=== PATIENT | female | born 1930 | race Caucasian/White ===

== ENCOUNTER 2017-08-05 20:48 | Inpatient (IN) | payer MEDICARE, BC ==
[~2017-08-05] VITALS: Ht 154.9 cm; Wt 73.1 kg
[~2017-08-05 20:48] MED LIST: /AMLO25TA PO; ACET500C PO; ALLO100T PO; ALLO10TA PO; ALLO50TA PO; AMOX250C3 PO; ARTH1TAB PO; ASPI81CH PO; ASPI81CH3 PO; BENA5TAB PO; BISO10TA PO; BISO10TA6 PO; CALTRATE 600+D PO; CALTTAB10 PO; CALTTAB2 PO; CAPS25CR EXT; CENTTAB PO; CLAR10CA3 PO; DETR4CAP PO; DOCU10ELUD PO; ELIQ2.5T PO; ELIQ5TAB PO; HYDR-3910 PO; HYDR12.55 PO; HYDR50TA2 PO; JANU25TA PO; LASI20TA PO; LEVO750T PO; LIDO1DIS2 TD; LOPR50TA PO; METO50TA2 PO; METO5TAB PO; METO5TAB2 PO; ONDA4TAB5 PO; PANT40TA2 PO; PERC5TAB PO; PRAV40TA2 PO; REGL5TAB2 PO; TOLT2TAB PO; TOPR50TA PO; TYLE325T5 PO; TYLE650T30 PO; ULTR50TA PO; VITA-112 PO; VITA-121 PO; VITA100037 PO; VITA200016 PO; ZOST0.25 TOP; ZOSTCRE TOP; ZYLO100T PO
[2017-08-05] MEDS ORDERED: TRAD5TAB PO (21:30)
[2017-08-05] MEDS: ONDANSETRON 4MG/2ML VIAL (J2405) IV ONE ×2 (21:45→21:59)
[2017-08-05] MEDS: PERCOCET 5MG/325MG TAB PO ONE ×2 (21:45→21:58)
[2017-08-05 21:51] LABS: BASO % 0.2 % (0.0-1.0); EOS # 0.1 10^3/uL (0.0-0.50); EOS % 0.4 % (0.0-3.0); IMMATURE GRANULOCYTE % 0.7 % (0-0); LYMPH # 1.4 10^3/uL (1.5-4.5); LYMPH % 7.9 % (24.0-44.0); MEAN CORPUSCULAR HEMOGLOBIN 28.3 pg (27.0-33.0); MEAN CORPUSCULAR HGB CONC 32.9 g/dl (32.0-36.5); MEAN CORPUSCULAR VOLUME 86.2 fl (80.0-96.0); MONO # 1.1 10^3/uL (0.0-0.8); MONO % 6.1 % (0.0-5.0); NEUTROPHILS # 15.4 10^3/uL (1.8-7.7); NEUTROPHILS % 84.7 % (36.0-66.0); PLATELET COUNT, AUTOMATED 507 10^3/uL (150-450); WHITE BLOOD COUNT 18.2 10^3/uL (4.0-10.0)
[2017-08-05] MEDS: NS 1,000 ML IV SCH ×2 (21:59→23:12)
[2017-08-05] MEDS ORDERED: GASTROGRAFIN SOLUTION 30ML (Q9963) PO ONE ×2 (22:00→22:30)
[2017-08-05] MEDS ORDERED: amLODIPine 5 MG TAB PO ONE (22:00)
[2017-08-05] MEDS ORDERED: BENAZEPRIL 20 MG TAB PO ONE (22:00)
[2017-08-05 22:03] LABS: ALBUMIN 3.5 GM/DL (3.2-5.2); ALBUMIN/GLOBULIN RATIO 0.81 (1.00-1.93); ALKALINE PHOSPHATASE 75 U/L (45-117); ALT/SGPT 27 U/L (12-78); ANION GAP 10 MEQ/L (8-16); AST/SGOT 15 U/L (7-37); BILIRUBIN,DIRECT < 0.1 MG/DL (0.0-0.2); BILIRUBIN,TOTAL 0.5 MG/DL (0.2-1.0); BLOOD UREA NITROGEN 53 MG/DL (7-18); CALCIUM LEVEL 10.6 MG/DL (8.8-10.2); CARBON DIOXIDE LEVEL 23 MEQ/L (21-32); CHLORIDE LEVEL 102 MEQ/L (98-107); CREATININE FOR GFR 2.46 MG/DL (0.55-1.02); GLOMERULAR FILTRATION RATE 19.7 (>32); GLUCOSE, FASTING 216 MG/DL (83-110); POTASSIUM SERUM 5.1 MEQ/L (3.5-5.1); SODIUM LEVEL 135 MEQ/L (136-145); TOTAL PROTEIN 7.8 GM/DL (6.4-8.2)
[2017-08-05] MEDS ORDERED: ONDANSETRON 4MG/2ML VIAL (J2405) IV ONE (22:30)
[2017-08-06] MEDS ORDERED: MORPHINE 2 MG/ML 1ML SYRINGE IV ONE
--- NOTE | 2017-08-06 00:30 | REPUSA ---
CLINICAL HISTORY: Abdominal pain. TECHNIQUE: Multiple axial, sagittal and coronal CT images were obtained through the abdomen and pelvi s without administration of oral or IV contrast material. COMMENTS: Prior colectomy. Unremarkable right ileostomy in the right lower quadrant. Moderate partial small bowel obstruction. Transition zone in the pelvis. No evidence of bowel perforation or pneumatosis intestinalis. Bilateral nonobstructing renal stones. Bilateral multifocal renal scarring. Bilateral renal cysts. Cirrhotic liver. There is no intra or extrahepatic biliary ductal dilatation. The spleen is normal. T he gallbladder is surgically absent. The pancreas is of normal contour and attenuation characteristic s. There is no evidence of adrenal mass. There is no hydroureter or hydronephrosis. There is no evidence of abdominal ascites or lymphadenopathy. There is no evidence of intrinsic or extrinsic bladder mass. There is no pelvic ascites or lymphadeno alexey.Images of the lung bases show no evidence of pleural or parenchymal mass. There are no pleural effusions. Bilateral basilar atelectatic pulmonary changes. Sliding hiatal hernia. Modest cardiomegal y. The bony structures are free of lytic or blastic lesions. Multilevel degenerative changes are seen in volving the thoracolumbar spine. Scattered calcifications are seen involving the aorta and major branches compatible with atherosclero sis. IMPRESSION: Prior colectomy. Unremarkable right ileostomy in the right lower quadrant. Moderate partial small bowel obstruction. Transition zone in the pelvis. No evidence of bowel perforation or pneumatosis intestinalis. Bilateral nonobstructing renal stones. Bilateral multifocal renal scarring. Bilateral renal cysts. Thank you for your kind referral of this patient.
[2017-08-06] MEDS ORDERED: PIPERACILLIN/TAZOBACTAM SOD 3.375 GM in APPROPRIATE DILUENT 1 EA IV ONE (00:45)
[2017-08-06] MEDS ORDERED: AMLO5CAP PO (01:19)
[2017-08-06] MEDS ORDERED: TOUJ1.2I SC (01:19)
[2017-08-06] MEDS ORDERED: ASPI81TA21 PO (01:19)
[2017-08-06] MEDS ORDERED: XARE15TA PO (01:19)
[2017-08-06 05:00] VITALS: BP 179/95
[2017-08-06] MEDS ORDERED: LR 1,000 ML IV SCH (05:15)
[2017-08-06] MEDS ORDERED: MORPHINE 2 MG/ML 1ML SYRINGE IV PRN ×2 (05:15→05:30)
[2017-08-06] MEDS: LR 1,000 ML IV SCH ×3 (05:20→22:40)
[2017-08-06] MEDS ORDERED: DEXTROSE 50% 50 ML SYRINGE IV PRN (06:15)
[2017-08-06] MEDS ORDERED: GLUCAGON FOR INJ 1 MG VIAL (J1610) SC PRN (06:15)
[2017-08-06] MEDS ORDERED: GLUCOSE 4 GM CHEW TABLET PO PRN (06:15)
[2017-08-06] MEDS: ONDANSETRON 4MG/2ML VIAL (J2405) IV PRN (06:33)
[2017-08-06] MEDS: HumaLOG INSULIN (NovoLOG) PER UNIT SC SCH ×4 (06:40→23:57)
[2017-08-06] MEDS: HEPARIN SOD (PORCINE) 5000 UNITS/ML VIAL SC SCH ×3 (06:41→20:30)
--- NOTE | 2017-08-06 07:01 | CR.PDOC ---
[facility] Consultation Consultation DATE OF CONSULTATION: Aug 05, 2017 at 20:48 PRIMARY CARE PHYSICIAN: unknown REFERRING PROVIDER: Dr. Zia Hooker ATTENDING PHYSICIAN: Dr. Davis REASON FOR CONSULTATION/CHIEF COMPLAINT: Small Bowel Obstruction HISTORY OF PRESENT ILLNESS: 87-year-old female presents to the ED via EMS with son Alphonso in room due to intermittent lower abdominal pain, nausea, nonbloody vomiting since 5 AM the previous day. PMH significant for TIA, A. fib, NIDDM 2, history of DVT, CAD, HTN, HLD. Patient tried heating pad, Zofran, syrup to no avail. Patient has an ileostomy bag from history of ulcerative colitis, and per patient she has also had loose diarrhea output recently. Patient denies fever, chills, chest pain, shortness of breath,weight loss, appetite changes. In the ED, CT of abdomen and pelvis revealed small bowel obstruction, and patient had white count of 18.2 and lactic acid of 2.7, and lipase 477. Patient was given a dose of Zosyn, started on fluids, and given morphine and Percocet for abdominal pain. BP was elevated at 185/86 which normalized with administration of Norvasc & Benazepril in ED. ALLERGIES: Please see below. HOME MEDICATIONS: Please see below. PAST MEDICAL HISTORY: 1. A. fib. 2. NIDDM 2 3. TIA, 2014 4. HLD 5. HTN 6. CKD 7. CAD 8. Gout 9. GERD 10. History left lower extremity DVT, 2014 11. Arthritis PAST SURGICAL HISTORY: 1. Ileostomy (history of ulcerative colitis) 2. Cholecystectomy 3. Bladder suspension FAMILY HISTORY: HTN, HLD SOCIAL HISTORY: Marital status and/or living arrangements: Lives at home with 2 sons Tobacco use: Never ETOH: Denies Illicit drug use: Denies IV drug use: Denies Other relevant social factors: Ambulates with rolling walker REVIEW OF SYSTEMS: CONSTITUTIONAL: Denies fever, chills, night sweats, fatigue HEENT: Denies vision changes or pain, tinnitus, ear pain CARDIOVASCULAR: Denies chest pain, palpitations, edema. RESPIRATORY: Denies shortness of breath, cough, wheeze. GENITOURINARY: Denies hematuria, dysuria, melena, hematochezia MUSCULOSKELETAL: Admits arthritic joint pain GASTROINTESTINAL: Admits to intermittent abdominal pain, loose diarrhea-like stools in ostomy, nausea, vomiting. Denies hematemesis, dysphagia, loss of appetite NEUROLOGICAL: Denies loss of sensation, lightheadedness, dizziness, weakness, numbness PHYSICAL EXAMINATION: VITAL SIGNS: Please see below. GENERAL APPEARANCE: NAD, A&O HEENT: Normocephalic, atraumatic, EOMI, patent nares RESPIRATORY: CTAB, good air exchange. No wheezing CARDIOVASCULAR: Normal S1 and S2. No murmur ABDOMEN: Distended, diffusely tender to palpation, positive bowel sounds, ileostomy bag present, no rebound or guarding EXTREMITIES: Radial pulses 2+ bilaterally. 5/5 strength b/l in UE, 3/5 b/l in LE due to arthritic pain NEUROLOGICAL: Sensation intact in upper and lower extremities bilaterally PSYCHIATRIC: Normal mood and affect LABORATORY DATA: Please see below. ASSESSMENT/PLAN: 1. SBO: Revealed on CT of abdomen and pelvis. Dr. Hooker as primary. NGT in place, pt NPO. IV fluids. 2. Leukocytosis: WBC 18.2. Patient afebrile. GI panel negative. Likely due to abdominal infection associated with SBO. Patient started on Zosyn and fluids. 3. Lactic acidosis: 2.7 on admission, which normalized with follow-up at 4 hours with IV fluids and Zosyn given in ED. Likely secondary to SBO and abdominal infection. 4. Elevated lipase: Level is 477 on admission. Likely secondary to SBO. IV fluids and monitor 5. Abd pain: pain meds to be managed by primary Surgical team 6. HLD: Continue statin 7. HTN: Continue home meds 8. A. fib: Rate controlled, continue home meds 9. Hx of TIA: Hold Xarelto, and replace with heparin due to easier patient transition should surgical intervention be needed 10. NIDDM 2: Hold home meds. Start insulin sliding scale, FS q6h 11. GERD: Protonix 12. Nausea/vomiting: NG tube in place. IV Zofran 13. DVT prophylaxis: Heparin SC Vital Signs/I&O Vital Signs Date Time Temp Pulse Resp B/P (MAP) Pulse Ox O2 Delivery O2 Flow Rate FiO2 08/06/17 03:30 82 18 141/76 (97) 93 Room Air 08/06/17 02:55 97.6 Laboratory Data Labs 24H Laboratory Tests 2 08/05/17 21:23: Immature Granulocyte % (Auto) 0.7H, White Blood Count 18.2H, Red Blood Count 4.34, Hemoglobin 12.3, Hematocrit 37.4, Mean Corpuscular Volume 86.2, Mean Corpuscular Hemoglobin 28.3, Mean Corpuscular Hemoglobin Concent 32.9, Red Cell Distribution Width 16.0H, Platelet Count 507H, Neutrophils (%) (Auto) 84.7H, Lymphocytes (%) (Auto) 7.9L, Monocytes (%) (Auto) 6.1H, Eosinophils (%) (Auto) 0.4, Basophils (%) (Auto) 0.2, Neutrophils # (Auto) 15.4H, Lymphocytes # (Auto) 1.4L, Monocytes # (Auto) 1.1H, Eosinophils # (Auto) 0.1, Basophils # (Auto) 0.0 , Immature Granulocyte # (Auto) 0.1H, Nucleated Red Blood Cells % (auto) 0.0, Anion Gap 10, Glomerular Filtration Rate 19.7L, Lactic Acid Level 2.7*H, Calcium Level 10.6H, Aspartate Amino Transf (AST/SGOT) 15, Alanine Aminotransferase (ALT/SGPT) 27, Alkaline Phosphatase 75, Total Bilirubin 0.5, Direct Bilirubin < 0.1, Total Protein 7.8, Albumin 3.5, Albumin/Globulin Ratio 0.81L, Lipase 477H 08/06/17 02:57: Lactic Acid Followup at 4 Hours 1.8 CBC/BMP Laboratory Tests 08/05/17 21:23 Red Blood Count 4.34, Mean Corpuscular Volume 86.2, Mean Corpuscular Hemoglobin 28.3, Mean Corpuscular Hemoglobin Concent 32.9, Red Cell Distribution Width 16.0 H, Neutrophils (%) (Auto) 84.7 H, Lymphocytes (%) (Auto) 7.9 L, Monocytes ( %) (Auto) 6.1 H, Eosinophils (%) (Auto) 0.4, Basophils (%) (Auto) 0.2, Neutrophils # (Auto) 15.4 H, Lymphocytes # (Auto) 1.4 L, Monocytes # (Auto) 1.1 H, Eosinophils # (Auto) 0.1, Basophils # (Auto) 0.0 Microbiology Microbiology 08/05/17 Gastrointestinal Tract Panel (PCR) - Final, Complete Allergies Coded Allergies: Morphine (Verified Allergy, Mild, DIZZINESS, 08/05/17) Latex (Verified Allergy, Unknown, 12/24/12) Atorvastatin (Verified Adverse Reaction, Intermediate, intolerant, ) Escitalopram (Verified Adverse Reaction, Intermediate, intolerant, ) Risedronate (Verified Adverse Reaction, Intermediate, intolerant, 06/29/15 ) Amlodipine (Verified Adverse Reaction, Mild, DIZZINESS, 06/29/15) Meperidine (Verified Adverse Reaction, Mild, DIZZINESS, 06/29/15) Home Medications Scheduled (Caltrate 600+D 600-400 mg-Unit) 1 Tab Tab, 1 TAB PO DAILY, (Reported) (Amlodipine Besylate/Benaz 5-10 mg) 1 Cap Cap, 1 CAP PO BID, (Reported) (Toujeo Solostar) 300 Unit/Ml Inj, 32 UNIT SC DAILY, (Reported) Allopurinol (Allopurinol) 100 Mg Tab, 200 MG PO DAILY, (Reported) Aspirin (Aspir-Low) 81 Mg Tab, 81 MG PO DAILY, (Reported) Bisoprolol Fumarate (Bisoprolol Fumarate) 10 Mg Tab, 10 MG PO QAM, (Reported) Cholecalciferol (Vitamin D-3) 1,000 Unit Tab, 2,000 UNIT PO QPM, (Reported) Furosemide (Lasix) 20 Mg Tab, 20 MG PO QAM, (Reported) Linagliptin Base (Tradjenta) 5 Mg Tab, 5 MG PO DAILY, (Reported) Metoclopramide Hcl (Reglan) 5 Mg Tab, 5 MG PO TID, (Reported) Multivitamins (Centrum Silver) 1 Tab Tab, 1 TAB PO QPM, (Reported) Pantoprazole Sodium (Pantoprazole Sodium) 40 Mg Tab, 40 MG PO DAILY, (Reported) Pravastatin Sod (Pravastatin Sodium) 40 Mg Tab, 40 MG PO QHS, (Reported) Rivaroxaban (Xarelto) 15 Mg Tab, 15 MG PO DAILY, (Reported) Scheduled PRN Capsaicin (Zostrix Arthritis Pain Re) 0.025 % Cre, 1 DOSE TOP QPM PRN for PAIN, (Reported) BOTH KNEES Ondansetron HCl (Ondansetron HCl) 4 Mg Tab, 4 MG PO Q8H PRN for NAUSEA OR VOMITING, (Reported) GME ATTESTATION GME ATTESTATION My faculty preceptor for this patient encounter was physically present during the encounter and was fully available. All aspects of the patient interview, examination, medical decision making process, and medical care plan development were reviewed and approved by the faculty preceptor. The faculty preceptor is aware and concurs with the plan as stated in the body of this note and will attest to such by his/her cosignature. ATTENDING NOTE I have seen and examined the patient as did the resident I have reviewed the case and discussed the plan with her. I concur with her findings on HX and PE and Agree with her A&P with the following Additions/ Exceptions Patient with SBO in need of Surgical COnsult so a 2MN stay is expected. Med team to continue to follow for Med Needs. EASTON OROURKE DO Aug 06, 2017 06:05 COLEMAN PABON MD Aug 08, 2017 19:15
[2017-08-06] MEDS: PANTOPRAZOLE 40MG INJ (PROTONIX) (C9113) IV SCH (08:02)
[2017-08-06] MEDS: PIPERACILLIN/TAZOBACTAM SOD 3.375 GM in APPROPRIATE DILUENT 1 EA IV SCH ×3 (08:32→20:30)
[2017-08-06] MEDS: ALLOPURINOL 100 MG TAB PO SCH (08:37)
[2017-08-06] MEDS: ASPIRIN 81 MG ENTERIC TAB PO SCH (08:37)
[2017-08-06] MEDS: BISOPROLOL FUMARATE 10 MG TAB PO SCH (08:38)
[2017-08-06] MEDS ORDERED: KETOROLAC 30 MG/ML VIAL (J1885) IV PRN (09:45)
--- NOTE | 2017-08-06 12:30 | REP ---
KUB ABDOMEN AND PELVIS: KUB film of abdomen and pelvis is performed. There is a nasogastric tube. The side port appears just distal to the gastroesophageal junction. There are moderately dilated small bowel loops present. Multiple metallic clips are seen in the abdomen and pelvis. Scattered vascular calcifications are present. There are degenerative changes of the spine with curvature toward the left. Right lower quadrant ostomy is noted. Signed by Zia Russ MD 08/06/2017 05:35 P
[2017-08-06] MEDS: METOCLOPRAMIDE INJ 10MG/2ML VIAL (J2765) IV PRN ×2 (12:51→20:30)
[2017-08-06 14:00] VITALS: BP 110/62
--- NOTE | 2017-08-06 18:49 | HPE ---
DATE OF ADMISSION: 08/06/2017 CHIEF COMPLAINT: Abdominal pain, nausea, vomiting. HISTORY OF PRESENT ILLNESS: The patient is an 87-year-old female with a history of ulcerative colitis status post total colectomy with end ileostomy over 20 years ago, who presents with a two-day history of nausea, vomiting, abdominal distension. Her last ileostomy output was on Monday. She has not had much since then. Since presenting to the floor, she is starting to have a small amount of output from her ostomy. She still is having some nausea and vomiting even with the nasogastric (NG) tube in place. NG output has been minimal at this point. However, the rest of her symptoms are currently stable. She has had a problem with small bowel obstruction about three years ago that she was hospitalized for as well. That episode was relieved on its own without even needing any NG tube decompression. Laboratories and vitals currently are stable. There are no signs of any acute disease. So our plan is to admit her and keep her and treat her medically. PAST MEDICAL HISTORY: Positive for atrial fibrillation, diabetes, transient ischemic attack (TIA), hyperlipidemia, hypertension, chronic kidney disease, coronary artery disease, gout, gastroesophageal reflux disease (GERD), deep venous thrombosis (DVT), arthritis. PAST SURGICAL HISTORY: Ileostomy, cholecystectomy, bladder suspension. FAMILY HISTORY: Noncontributory. ALLERGIES: 1. AMLODIPINE. 2. ATORVASTATIN. 3. LATEX. 4. MORPHINE. 5. MEPERIDINE. 6. RISEDRONATE HOME MEDICATIONS: Please see medication rec. SOCIAL HISTORY: Denies drug, alcohol, or tobacco abuse. REVIEW OF SYSTEMS: Pertinent positives and negatives as stated in the history of present illness (HPI). PHYSICAL EXAMINATION: GENERAL: Alert and oriented times three. No acute stress. VITALS: Temperature 97.9, pulse 91, respirations 18, blood pressure 179/95, pulse oximetry 95% room air. HEENT: Pupils equal round and react to light and accommodation. HEART: S1, S2 regular rate and rhythm. LUNGS: Clear auscultation bilaterally. ABDOMEN: Soft, slightly distended diffusely, tender palpation diffusely. EXTREMITIES: No clubbing, cyanosis or edema. LABORATORY DATA: White count 18.2, hemoglobin 12.3, platelets 507. Lactic acid 2.7, will a followup at 1.8. IMAGING: CT abdomen and pelvis shows a history of prior colectomy with a right ileostomy in the right lower quadrant, moderate partial small-bowel obstruction with transition zone somewhere in the pelvis. No signs of any bowel perforation or pneumatosis intestinalis. ASSESSMENT/PLAN: The patient is an 87-year-old female with partial versus complete small bowel obstruction likely secondary to adhesions and scarring from previous surgeries. Recommendation at this time is to continue to treat medically with intravenous (IV) fluids bowel rest, nothing by mouth. NG tube to low intermittent suction. I have encouraged her to increase ambulation as much as possible, move around the room even rolling around in bed. We will continue to treat her this way for up to 72 hours. If she continues to improve and starts having increased output from her ostomy, then we will remove the NG tube and start her on a diet. If she is not having any improvement within 72 hours, then we will have to consider surgical intervention at that time.
[2017-08-06] MEDS: PRAVASTATIN 20 MG TAB PO SCH (20:29)
[2017-08-06] MEDS: MULTIVITAMINS/MINERALS THERAP 1 TAB PO SCH (20:29)
[2017-08-06] MEDS: VITAMIN D 1,000 INTERNATIONAL UNITS TABLET PO SCH (20:29)
[2017-08-06 22:00] VITALS: BP 120/68
[2017-08-07] MEDS: PIPERACILLIN/TAZOBACTAM SOD 3.375 GM in APPROPRIATE DILUENT 1 EA IV SCH ×2 (02:00→09:12)
[2017-08-07] MEDS: LR 1,000 ML IV SCH ×2 (05:30→15:08)
[2017-08-07 06:00] VITALS: BP 126/74
[2017-08-07] MEDS: HEPARIN SOD (PORCINE) 5000 UNITS/ML VIAL SC SCH ×3 (06:00→21:49)
[2017-08-07] MEDS: HumaLOG INSULIN (NovoLOG) PER UNIT SC SCH ×3 (06:00→18:00)
[2017-08-07 06:45] LABS: MEAN CORPUSCULAR HEMOGLOBIN 27.5 pg (27.0-33.0); MEAN CORPUSCULAR HGB CONC 32.1 g/dl (32.0-36.5); MEAN CORPUSCULAR VOLUME 85.7 fl (80.0-96.0); PLATELET COUNT, AUTOMATED 410 10^3/uL (150-450); RED CELL DISTRIBUTION WIDTH 16.3 % (11.5-14.5); WHITE BLOOD COUNT 8.1 10^3/uL (4.0-10.0)
[2017-08-07 06:51] LABS: ALBUMIN 2.4 GM/DL (3.2-5.2); ALBUMIN/GLOBULIN RATIO 0.63 (1.00-1.93); BILIRUBIN,TOTAL 0.8 MG/DL (0.2-1.0); CALCIUM LEVEL 8.9 MG/DL (8.8-10.2); CREATININE FOR GFR 2.61 MG/DL (0.55-1.02); GLOMERULAR FILTRATION RATE 18.4 (>32); MAGNESIUM LEVEL 2.2 MG/DL (1.8-2.4); POTASSIUM SERUM 4.2 MEQ/L (3.5-5.1); TOTAL PROTEIN 6.2 GM/DL (6.4-8.2)
[2017-08-07] MEDS: PANTOPRAZOLE 40MG INJ (PROTONIX) (C9113) IV SCH (09:11)
[2017-08-07] MEDS: ASPIRIN 81 MG ENTERIC TAB PO SCH (09:12)
[2017-08-07] MEDS: ALLOPURINOL 100 MG TAB PO SCH (09:12)
[2017-08-07] MEDS: BISOPROLOL FUMARATE 10 MG TAB PO SCH (09:13)
--- NOTE | 2017-08-07 12:47 | CR ---
DATE OF CONSULTATION: 08/07/2017 REQUESTING PHYSICIAN: Dr. Jennyfer Davis CONSULTING PHYSICIAN: Dr. Casas REASON FOR CONSULTATION: Management of acute kidney injury superimposed on chronic kidney disease. CHIEF COMPLAINT: Patient presented to the hospital two days ago with pain in abdomen, nausea and vomiting. HISTORY OF PRESENT ILLNESS: Nohelia Roman is an 87-year-old female with past medical history of colectomy. She has an ileostomy in the right lower quadrant. According to the hospital records, she has chronic kidney disease Stage IV, but the patient denies that she follows up with any nephrology physician as outpatient. Her baseline creatinine in the hospital from last year is 2. She has non insulin dependent diabetes as well. She has multiple other comorbidities as mentioned below. She presented to the hospital two days ago because of intermittent lower abdominal pain, nausea, and non bloody bilious vomiting. She tried pain medications and heating pads at home that did not help. Further investigation in the hospital including a CAT scan of the abdomen with oral contrast only showed small bowel obstruction. The patient was also found to have leukocytosis and lactic acidosis. She was hydrated with IV fluids and started on IV antibiotics. The patient still has a NG tube attached to suctioning at this time. On arrival, patient's creatinine was 2.4, which bumped up to 2.6. Nephrology service was called for further help in the management of acute kidney injury superimposed on chronic kidney disease Stage IV. The patient did not receive any IV contrast. She was on as needed Toradol, but it was not given to her. The patient did receive a dose of benazepril in the emergency room because of elevated blood pressures. I examined the patient today morning at her bedside. She reports that her pain in abdomen is getting better. She denies any nausea or vomiting. She has a NG tube attached to suctioning at this time. PAST MEDICAL HISTORY: 1. The patient has a past medical history of chronic kidney disease Stage IV. Best baseline creatinine is 2 as of last year. 2. Non insulin dependent diabetes. 3. Atrial fibrillation in the past. 4. Hypertension. 5. Hyperlipidemia. 6. History of gout secondary to chronic kidney disease. 7. Left lower extremity deep vein thrombosis (DVT) in 2015. 8. History of arthritis. PAST SURGICAL HISTORY: 1. Status post ileostomy secondary to ulcerative colitis. 2. Status post cholecystectomy. 3. History of bladder suspension in the past. ALLERGIES: Patient is allergic to multiple medications including - AMLODIPINE - ATORVASTATIN - ESCITALOPRAM - LATEX - MEPERIDINE - MORPHINE - RISEDRONATE FAMILY HISTORY: No significant family history of end stage renal disease or hemodialysis. There is a positive history of hypertension and hyperlipidemia. SOCIAL HISTORY: The patient lives at home. She denies any illicit drug abuse, smoking or alcohol abuse. REVIEW OF SYSTEMS: CONSTITUTIONAL: Patient denies any fevers, chills, rigors. EYES: She denies any blurry vision or double vision. ENT: She denies any dysphagia, odynophagia or ear discharge. CARDIOVASCULAR: She denies any chest pain or palpitations. RESPIRATORY: She denies any shortness of breath, cough or wheezing. ABDOMEN: The patient admitted with small bowel obstruction. She still has a NG tube. She reports pain in abdomen is better. GENITOURINARY: She denies any dysuria or hematuria. MUSCULOSKELETAL: She denies any muscles aches and pains. She does report arthritis. CENTRAL NERVOUS SYSTEM (SAFETY COUNSELOR): She denies any weakness, strokes or seizures. SKIN: She denies any rashes or ulcers. PSYCHIATRIC: She denies any anxiety at this time. All other review of systems is negative. PHYSICAL EXAMINATION: GENERAL: Patient is awake, alert and oriented times three, laying in bed. VITAL SIGNS: Temperature 98.3 degrees Fahrenheit. Blood pressure 126/74. Pulse 89. Respiratory rate 18. Saturating 96% on room air. INTAKE AND OUTPUT: Urine output recorded as 450 mL so far today since overnight. Stool output is 775 mL. The patient is 1.7 liters negative since yesterday. Weight on the bed scale is 73.1 kg. HEAD AND NECK EXAM: Extraocular muscles intact. Pupils equally round and reactive to light. Mucous membranes are moist. Neck is supple. There is no jugular venous distention (JVD). CARDIOVASCULAR: S1, S2, regular rate. No murmur, rub or gallop. RESPIRATORY: Chest is clear to auscultation bilaterally. Bilateral equal air entry. No rales or rhonchi. ABDOMEN: Soft. Decreased bowel sounds. Mildly tender to deep palpation in the left lower quadrant. The patient has a NG ostomy in the right lower quadrant with some liquid stools in the ileostomy. MUSCULOSKELETAL: No clubbing or cyanosis. Pulses are 2+. SAFETY COUNSELOR: No focal neurological deficit. Power is 5/5 in all extremities. SKIN: No rashes or ulcers. LYMPHS: No significant cervical, axillary or inguinal lymphadenopathy. PSYCHIATRIC: Normal mood and affect. LAB REVIEW: CBC showed a WBC of 8.1, hemoglobin 10.4, and platelets of 410. White cell count was 18.2 the day before yesterday. BMP showed sodium 139, potassium 4.2, chloride 106, bicarbonate 26, BUN 51, creatinine 2.6, glucose 92, calcium 8.9, magnesium 2.2, albumin 2.4. MICROBIOLOGY: GI panel is negative. IMAGING: Abdominal x-ray was done yesterday which showed moderately distended small bowel loops. CURRENT INPATIENT MEDICATIONS: Patient's medications were all reviewed by me. She is currently on lactated ringers 125 mL per hour. She was on Zosyn 3.375 grams IV every 6 hourly and I changed the dose to 2.25 grams every 8 hourly because of low GFR. She is on allopurinol 200 mg daily, aspirin 81 mg daily, Zebeta 10 mg in the morning, heparin subcutaneous, insulin sliding scale. She was on as needed (p.r.n.) Toradol which has been stopped, Reglan p.r.n., multivitamin one tablet daily, Protonix 40 mg IV every 24 hours, pravastatin 40 mg at bedtime and vitamin D 2000 units in the morning. ASSESSMENT: 87-year-old female with past medical history of hypertension, non insulin dependent diabetes, and CKD Stage IV with baseline creatinine of 2, admitted at this time because of small bowel obstruction. [facility] of acute kidney injury superimposed on chronic kidney disease Stage IV. PLAN: 1. Acute kidney injury superimposed on chronic kidney disease Stage IV. Patient's baseline creatinine is 2. Creatinine has bumped up to 2.6 now. Most likely associated with the use of benazepril in the emergency room for hypertension. At that time, she was dehydrated and had lactic acidosis as well. Continue the IV fluid hydration. Her renal function is expected to improve to baseline within the next few days. The patient does need to followup with nephrology as outpatient because she has CKD Stage IV and she might need to start renal replacement therapy over the next few months. 2. Hypertensoin. Her blood pressure is acceptable at this time. Continue currently dose of bisoprolol 10 mg daily. Avoid POLO inhibitors or angiotension receptor blockers. 3. Small bowel obstruction. Patient currently has a NGT which is attached to suctioning. She is on IV antibiotic. I have the changed Zosyn dose to 2.25 grams IV every 8 hourly because her GFR is less than 20 at this time. The rest of the management and decision to start oral diet and discontinuation of NG tube is as per surgical team. 4. Chronic gout secondary to chronic kidney disease. Continue current dose of allopurinol 200 mg by mouth daily. Thank you for involving us in the care of this patient. We shall be happy to follow the patient along with you tomorrow morning.
--- NOTE | 2017-08-07 13:08 | IPN ---
DATE OF SERVICE: 08/07/2017 Patient seen and examined at the bedside. Chart has been reviewed. This morning, she denies nausea or vomiting. Abdominal pain is improved but still with nasogastric tube. No chest pain, pressure or tightness. Denies any dysuria, urgency, frequency, fever, chills or flank pain. No diarrhea. Vitals: Temperature 98.3, pulse 89, respiratory rate 18, blood pressure 126/74, 96% on room air. Input and output: Input 1965, output 725. Gastric drainage 550. Current weight 73.1 kg. Urine output 450 this morning. Generally awake, alert, oriented to person, place. Answering questions appropriately. Lungs: Clear to auscultation. No wheezing, rales or rhonchi. Nasogastric tube in place. Heart: S1, S2 sinus rhythm. Abdomen: Soft. Positive bowel sounds. Ileostomy bag present. No rebound or guarding. Extremities: No pitting edema. LABORATORY DATA: White count 8.1, hemoglobin 10, hematocrit 32, platelet count 410. Sodium 139, potassium 4.2, chloride 106, bicarbonate 26, BUN 51, creatinine 2.61 with baseline creatinine of 1.722. Glucose of 92. Lactic acid 1.8. ASSESSMENT AND PLAN: This is an 87-year-old female with history of atrial fibrillation, non-insulin dependent type 2 diabetes, transient ischemic attack (TIA) in 2014, dyslipidemia, hypertension, chronic kidney disease stage III, gout, reflux, left lower extremity deep venous thrombosis (DVT) 2015, osteoarthritis, ileostomy due to history of ulcerative colitis, cholecystectomy, bladder suspension, presented to the emergency room with complaints of abdominal pain, loose diarrhea recently, found to have bowel obstruction, admitted under surgical services Dr. Hooker. CURRENT ISSUES: 1. Small bowel obstruction currently with nasogastric tube, n.p.o., intravenous fluids. I have discontinued patient's Toradol due to worsening creatinine. 2. Acute on chronic renal failure secondary to decreased oral intake from the small bowel obstruction as well as Toradol. Discontinue Toradol, other nephrotoxins and renally dose all medications. 3. Lactic acidosis on IV fluids and Zosyn per primary team. 4. Atrial fibrillation currently rate controlled. Ventricle rate of 72-93. On Zebeta 10 mg every morning and aspirin 81 daily. 5. Type 2 diabetes currently on hypoglycemic protocol and sliding scale. Monitor for hypoglycemia while n.p.o. 6. History of ulcerative colitis with ileostomy, chronic history of left lower extremity deep venous thrombosis 2014 and transient ischemic attack 2014 currently on aspirin. 7. Hypertension, stable and controlled. 8. Deep venous thrombosis (DVT) prophylaxis with subcutaneous heparin.
[2017-08-07 14:00] VITALS: BP 115/56
[2017-08-07] MEDS: METOCLOPRAMIDE INJ 10MG/2ML VIAL (J2765) IV PRN (15:29)
[2017-08-07] MEDS: ONDANSETRON 4MG/2ML VIAL (J2405) IV PRN (16:52)
[2017-08-07] MEDS: PIPERACILLIN/TAZOBACTAM SOD 2.25 GM in APPROPRIATE DILUENT 1 EA IV SCH (18:51)
[2017-08-07] MEDS: MULTIVITAMINS/MINERALS THERAP 1 TAB PO SCH ×2 (20:20→20:27)
[2017-08-07] MEDS: PRAVASTATIN 20 MG TAB PO SCH ×2 (20:20→20:27)
[2017-08-07] MEDS: VITAMIN D 1,000 INTERNATIONAL UNITS TABLET PO SCH (20:20)
[2017-08-07] MEDS: ACETAMINOPHEN TAB 650MG DOSE (2X325MG) PO PRN (20:21)
[2017-08-07 22:00] VITALS: BP 99/58
[2017-08-08] MEDS: HumaLOG INSULIN (NovoLOG) PER UNIT SC SCH ×4 (00:35→18:00)
[2017-08-08] MEDS: LR 1,000 ML IV SCH (01:50)
[2017-08-08] MEDS: PIPERACILLIN/TAZOBACTAM SOD 2.25 GM in APPROPRIATE DILUENT 1 EA IV SCH ×3 (02:04→17:20)
[2017-08-08] MEDS: ACETAMINOPHEN TAB 650MG DOSE (2X325MG) PO PRN ×2 (02:04→18:42)
[2017-08-08] MEDS: ONDANSETRON 4MG/2ML VIAL (J2405) IV PRN (02:47)
[2017-08-08] MEDS ORDERED: MORPHINE 2 MG/ML 1ML SYRINGE IV ONE (04:00)
[2017-08-08] MEDS: CHLORASEPTIC SPRAY MT PRN ×3 (04:07→18:01)
[2017-08-08] MEDS: METOCLOPRAMIDE INJ 10MG/2ML VIAL (J2765) IV PRN (04:08)
[2017-08-08 06:00] VITALS: BP 140/88
[2017-08-08 06:05] LABS: MEAN CORPUSCULAR HEMOGLOBIN 27.9 pg (27.0-33.0); MEAN CORPUSCULAR HGB CONC 31.9 g/dl (32.0-36.5); MEAN CORPUSCULAR VOLUME 87.4 fl (80.0-96.0); PLATELET COUNT, AUTOMATED 378 10^3/uL (150-450); RED CELL DISTRIBUTION WIDTH 16.2 % (11.5-14.5); WHITE BLOOD COUNT 8.1 10^3/uL (4.0-10.0)
[2017-08-08] MEDS: HEPARIN SOD (PORCINE) 5000 UNITS/ML VIAL SC SCH ×3 (06:25→20:52)
[2017-08-08 06:28] LABS: ALBUMIN 2.2 GM/DL (3.2-5.2); ALBUMIN/GLOBULIN RATIO 0.61 (1.00-1.93); BILIRUBIN,TOTAL 0.5 MG/DL (0.2-1.0); CALCIUM LEVEL 8.8 MG/DL (8.8-10.2); CREATININE FOR GFR 2.4 MG/DL (0.55-1.02); GLOMERULAR FILTRATION RATE 20.2 (>32); MAGNESIUM LEVEL 2.1 MG/DL (1.8-2.4); POTASSIUM SERUM 3.9 MEQ/L (3.5-5.1); TOTAL PROTEIN 5.8 GM/DL (6.4-8.2)
[2017-08-08 09:30] VITALS: BP 118/78
[2017-08-08] MEDS: PANTOPRAZOLE 40MG INJ (PROTONIX) (C9113) IV SCH (10:39)
[2017-08-08] MEDS ORDERED: MAGNESIUM CITRATE 300 ML BTL PO ONE (11:45)
[2017-08-08] MEDS: ASPIRIN 81 MG ENTERIC TAB PO SCH (11:48)
[2017-08-08] MEDS: ALLOPURINOL 100 MG TAB PO SCH (11:49)
[2017-08-08] MEDS: BISOPROLOL FUMARATE 10 MG TAB PO SCH (11:50)
[2017-08-08] MEDS: D5W/0.45% SODIUM CHLORIDE 1,000 ML IV SCH ×2 (12:50→20:43)
[2017-08-08 14:11] VITALS: BP 124/82
--- NOTE | 2017-08-08 14:14 | IPNPDOC ---
Text Note Date of Service The patient was seen on 08/08/17. NOTE Subjective: Patient is an 87 year old female with a PMHx of TIA 2015, A. fib, CAD , HTN, DLP, NIDDM2, Hx of DVT 2015, Ulcerative colitis s/p Ileostomy who presented to the ER with lower abdominal pain, nausea and vomiting for 1 day duration. She was admitted to surgical service for small bowel obstruction hospitals were then called on consultation for management of her medical problems, including worsening kidney function and HTN. Patient was seen and examined at the bedside. Patient has reported some nausea yesterday and NG tube is still in place. Patient has a colostomy that is present and is still draining output. She denies any abdominal pain. Objective: Vitals (See below) General: Lying in bed, no acute distress, comfortable, AAOx3 HEENT: NC, AT CVS: RRR, +S1S2 Lungs: Fair air entry b/l, -w/r/r Abdomen: Soft, ND, NT, + ileostomy Extremities: - Edema, - Calf tenderness Assessment and plan: Small bowel obstruction - Clinically had symptoms of nausea yesterday - Physical without any abdominal tenderness, ileostomy with output noted - NG tube still in place and draining to intermittent suction - Currently on Zosyn - Currently on liquid diet - Managed by surgical team Acute on chronic renal failure - likely 2/2 prerenal etiology - 2/2 poor intake , intrarenal etiology - 2/2 toradol - Creatinine has shown some improvement this morning - Avoid nephrotoxic medications - Continue with IV fluid hydration - Dr. Casas (Nephrology) has been consulted; appreciate their input Atrial fibrillation - Currently rate controlled - Continue with rate control with bisoprolol - Currently only on aspirin 81 NIDDM2 - c/w insulin sliding scale s/p Lactic acidosis TIA - c/w aspirin 81 CAD - c/w aspirin 81 HTN - Blood pressure remains well controlled - c/w bisoprolol DLP - c/w Pravastatin Hx of DVT Gout - c/w allopurinol Ulcerative colitis s/p Ileostomy - Chronic GI prophylaxis - c/w Protonix DVT prophylaxis - c/w heparin VS,Fishbone, I+O VS, Fishbone, I+O Laboratory Tests 08/08/17 05:36 Red Blood Count 3.58 L, Mean Corpuscular Volume 87.4, Mean Corpuscular Hemoglobin 27.9, Mean Corpuscular Hemoglobin Concent 31.9 L, Red Cell Distribution Width 16.2 H, Calcium Level 8.8, Aspartate Amino Transf (AST/SGOT) 13, Alanine Aminotransferase (ALT/SGPT) 17, Alkaline Phosphatase 45, Total Bilirubin 0.5, Total Protein 5.8 L, Albumin 2.2 L Vital Signs Date Time Temp Pulse Resp B/P (MAP) Pulse Ox O2 Delivery O2 Flow Rate FiO2 08/08/17 11:50 92 118/78 08/08/17 09:55 Room Air 08/08/17 09:30 97.8 16 94 I&O- Last 24 Hours up to 6 AM 08/09/17 06:00 Intake Total 1015 ml Output Total 550 ml Balance 465 ml HEMANT SKY MD Aug 08, 2017 14:14
--- NOTE | 2017-08-08 14:26 | IPN ---
DATE: 08/08/2017 SUBJECTIVE: The patient was seen and examined at the bedside this morning. The patient still has nasogastric tube attached to the suctioning; however, the patient started drinking some juice this morning. She reports that the pain in her abdomen is getting better. She is hemodynamically stable. Renal function is also improving now. Creatinine is down to 2.4. REVIEW OF SYSTEMS: The patient denies any fever, chills, rigors, chest pain, shortness of breath. She denies any pain in the abdomen and she is having some output in the ileostomy at this time. The rest of the review of systems is negative. OBJECTIVE: VITAL SIGNS: Temperature 97.8 degrees Fahrenheit, blood pressure is 117/78, pulse is 88, respiratory rate 16, saturating 94% on room air. Intake and output: Urine output so far since overnight is 175 mL. Stool output has been 450 mL. Weight on the bed scale is not available today. PHYSICAL EXAMINATION: GENERAL: The patient is awake, alert, oriented times three. Lying in bed. No apparent distress. HEAD AND NECK EXAM: Extraocular muscles intact. Pupils are equal, round and reactive to light. Mucous membranes are moist. The patient has nasogastric tube. NECK: Supple. There is no jugular venous distention (JVD). CARDIOVASCULAR: S1, S2. Regular rate. No murmur, rub or gallop. RESPIRATORY: Chest is clear to auscultation bilaterally. Bilateral equal air entry. No rales or rhonchi. ABDOMEN: Soft, decreased breath sounds all over. She has an ileostomy in the right lower quadrant. Greenish liquid stools seen in the bag in a small amount. MUSCULOSKELETAL: No clubbing or cyanosis. Pulses are 2+. CENTRAL NERVOUS SYSTEM (EXTRACTOR PULLER): No focal neurological deficits. Power is 5/5 in all extremities. SKIN: No rashes or ulcers. PSYCHIATRIC: Normal mood and affect. LABORATORY REVIEW: CBC showed a WBC of 8.1, hemoglobin is 10, platelets 378. BMP showed a sodium of 140, potassium 3.9, chloride 106, bicarbonate 26, BUN 40, creatinine is 2.4, it was 2.6 yesterday. Albumin is 2.2. CURRENT INPATIENT MEDICATIONS: The patient's medications were all reviewed by me. She continues to be on IV fluids, but IV fluids have been changed to D5 half normal saline at 125 mL per hour. She is currently on Zosyn. The patient was also given a dose of magnesium citrate by mouth times one dose today. She has been started on Cepacol lozenges for sore throat. ASSESSMENT: 87-year-old female with a past medical history of hypertension, [id number] diabetes, chronic kidney disease stage IV with baseline creatinine of 2.0, admitted this time because of small bowel obstruction. Nephrology service following the patient for management of acute kidney injury superimposed on chronic kidney disease stage IV. PLAN: 1. Acute kidney injury superimposed on chronic kidney disease stage IV. According to records, baseline creatinine is 1. Acute kidney injury was secondary to dehydration and volume depletion and use of benazepril in the emergency room. Renal function is improving. Continue IV fluid hydration. Creatinine is down to 2.4 now. 2. Hypertension. Blood pressure is acceptable at this time. Continue bisoprolol 10 mg daily. Avoid POLO inhibitors at this time. 3. Small bowel obstruction. The patient continues to be on nasogastric tube with intermittent suctioning; however, she started drinking juice now. She is on IV antibiotics. Dose is adequate for her GFR. The patient is having some liquid stool output in the right lower quadrant ileostomy now. 4. Chronic gout secondary to chronic kidney disease. Continue current dose of allopurinol 200 mg daily.
[2017-08-08] MEDS: PRAVASTATIN 20 MG TAB PO SCH (20:51)
[2017-08-08] MEDS: MULTIVITAMINS/MINERALS THERAP 1 TAB PO SCH (20:51)
[2017-08-08] MEDS: VITAMIN D 1,000 INTERNATIONAL UNITS TABLET PO SCH (20:51)
[2017-08-08 22:00] VITALS: BP 110/59
[2017-08-09] MEDS: METOCLOPRAMIDE INJ 10MG/2ML VIAL (J2765) IV PRN (00:24)
[2017-08-09] MEDS: HumaLOG INSULIN (NovoLOG) PER UNIT SC SCH ×4 (00:25→17:47)
[2017-08-09] MEDS: PIPERACILLIN/TAZOBACTAM SOD 2.25 GM in APPROPRIATE DILUENT 1 EA IV SCH ×3 (02:50→18:45)
[2017-08-09] MEDS: D5W/0.45% SODIUM CHLORIDE 1,000 ML IV SCH (05:01)
[2017-08-09 06:00] VITALS: BP 110/57
[2017-08-09 06:20] LABS: MEAN CORPUSCULAR HEMOGLOBIN 27.8 pg (27.0-33.0); MEAN CORPUSCULAR HGB CONC 32.2 g/dl (32.0-36.5); MEAN CORPUSCULAR VOLUME 86.4 fl (80.0-96.0); PLATELET COUNT, AUTOMATED 363 10^3/uL (150-450); RED CELL DISTRIBUTION WIDTH 15.9 % (11.5-14.5); WHITE BLOOD COUNT 8.6 10^3/uL (4.0-10.0)
[2017-08-09 06:34] LABS: ALBUMIN 2.1 GM/DL (3.2-5.2); ALBUMIN/GLOBULIN RATIO 0.62 (1.00-1.93); ALKALINE PHOSPHATASE 54 U/L (45-117); ALT/SGPT 14 U/L (12-78); AST/SGOT 11 U/L (7-37); BILIRUBIN,TOTAL 0.4 MG/DL (0.2-1.0); BLOOD UREA NITROGEN 32 MG/DL (7-18); CALCIUM LEVEL 8.3 MG/DL (8.8-10.2); CARBON DIOXIDE LEVEL 27 MEQ/L (21-32); CHLORIDE LEVEL 104 MEQ/L (98-107); CREATININE FOR GFR 2.24 MG/DL (0.55-1.02); GLOMERULAR FILTRATION RATE 21.9 (>32); GLUCOSE, FASTING 187 MG/DL (83-110); MAGNESIUM LEVEL 2.2 MG/DL (1.8-2.4); TOTAL PROTEIN 5.5 GM/DL (6.4-8.2)
[2017-08-09 06:38] LABS: ANION GAP 6 MEQ/L (8-16); SODIUM LEVEL 137 MEQ/L (136-145)
[2017-08-09 06:40] LABS: POTASSIUM SERUM 3.1 MEQ/L (3.5-5.1)
[2017-08-09] MEDS: HEPARIN SOD (PORCINE) 5000 UNITS/ML VIAL SC SCH ×3 (06:43→21:27)
[2017-08-09 06:49] VITALS: BP 124/68
[2017-08-09] MEDS ORDERED: POTASSIUM CHLORIDE 10 MEQ SR TABLET PO ONE (07:15)
[2017-08-09] MEDS ORDERED: GI COCKTAIL 50ML BTL(HYOSCYAMINE/MAALOX/LIDOCAINE VISCOUS)(1:3:1) PO ONE (08:00)
[2017-08-09] MEDS: KCL 10MEQ IN 100ML SWI (KRUN) 10 MEQ in APPROPRIATE DILUENT 1 EA IV SCH ×4 (08:03→09:22)
[2017-08-09] MEDS: PANTOPRAZOLE 40MG INJ (PROTONIX) (C9113) IV SCH (08:03)
[2017-08-09] MEDS: BISOPROLOL FUMARATE 10 MG TAB PO SCH (08:04)
[2017-08-09] MEDS: ASPIRIN 81 MG ENTERIC TAB PO SCH (08:04)
[2017-08-09] MEDS: ALLOPURINOL 100 MG TAB PO SCH (08:04)
[2017-08-09] MEDS: KCL 20MEQ IN D5/0.45NS 1000ML 1,000 ML IV SCH ×3 (09:22→18:45)
[2017-08-09] MEDS: BISACODYL 10 MG SUPP XX SCH ×2 (10:53→21:27)
--- NOTE | 2017-08-09 13:16 | IPNPDOC ---
Text Note Date of Service The patient was seen on 08/09/17. NOTE Subjective: Patient is an 87 year old female with a PMHx of TIA 2015, A. fib, CAD , HTN, DLP, NIDDM2, Hx of DVT 2014, Ulcerative colitis s/p Ileostomy who presented to the ER with lower abdominal pain, nausea and vomiting for 1 day duration. She was admitted to surgical service for small bowel obstruction hospitals were then called on consultation for management of her medical problems, including worsening kidney function and HTN. Patient was seen and examined at the bedside. Patient had noted some chest pain this morning and an EKG was acquried. Upon evaluation of the patient his morning she noted the chest pain had resolved. She did, however, describe it as a 5 out of 10, aching-like nature, substernal without any radiation. She denied any nausea, vomiting or any diaphoresis associated with chest pain. Currently, she still has excessive output via the NG tube which has been sent to intermittent suction. Continues to have good output via the right-sided ileostomy. Objective: Vitals (See below) General: Lying in bed, no acute distress, comfortable, AAOx3 HEENT: NC, AT CVS: RRR, +S1S2 Lungs: Fair air entry b/l, -w/r/r Abdomen: Soft, ND, NT, + ileostomy Extremities: - Edema, - Calf tenderness Assessment and plan: Small bowel obstruction - Episodes of nausea yesterday - Physical, again without any abdominal tenderness, bowel sounds noted - NG tube still in place and draining to intermittent suction, large volume output still noted - Currently on Zosyn - Currently on liquid diet - Managed by surgical team Acute on chronic renal failure - likely 2/2 prerenal etiology - 2/2 poor intake , intrarenal etiology - 2/2 Toradol - Cr baseline noted to be around 1.8 - 2.0 - Creatinine continues to show improvement - Avoid nephrotoxic medications - Continue with IV fluid hydration with dextrose base fluid and potassium supplementation - Dr. Casas (Nephrology) has been consulted; appreciate their input s/p chest pain - Chest pain that occurred on 08/09 AM - EKG was acquired and compared to prior EKG from 2016, no significant changes were noted - Cardiac markers were quiet this morning and have been negative - c/w aspirin 81 Atrial fibrillation - Currently rate controlled - Continue with rate control with bisoprolol - Currently only on aspirin 81 NIDDM2 - c/w insulin sliding scale s/p Lactic acidosis TIA - c/w aspirin 81 CAD - c/w aspirin 81 HTN - Blood pressure remains well controlled - c/w bisoprolol DLP - c/w Pravastatin Hx of DVT Gout - c/w allopurinol Ulcerative colitis s/p Ileostomy - Chronic GI prophylaxis - c/w Protonix DVT prophylaxis - c/w heparin VS,Fishbone, I+O VS, Fishbone, I+O Laboratory Tests 08/09/17 05:45 Red Blood Count 3.31 L, Mean Corpuscular Volume 86.4, Mean Corpuscular Hemoglobin 27.8, Mean Corpuscular Hemoglobin Concent 32.2, Red Cell Distribution Width 15.9 H, Calcium Level 8.3 L, Aspartate Amino Transf (AST/SGOT ) 11, Alanine Aminotransferase (ALT/SGPT) 14, Total Creatine Kinase 19 L, Alkaline Phosphatase 54, Total Bilirubin 0.4, Total Protein 5.5 L, Albumin 2.1 L Vital Signs Date Time Temp Pulse Resp B/P (MAP) Pulse Ox O2 Delivery O2 Flow Rate FiO2 08/09/17 08:04 79 135/70 08/09/17 06:49 98.1 18 91 Room Air I&O- Last 24 Hours up to 6 AM 08/10/17 06:00 Intake Total 480 ml Output Total 1100 ml Balance -620 ml HEMANT SKY MD Aug 09, 2017 13:16
[2017-08-09] MEDS: METOCLOPRAMIDE 10 MG TAB PO SCH ×2 (13:28→18:45)
[2017-08-09 14:00] VITALS: BP 116/62
[2017-08-09] MEDS: VITAMIN D 1,000 INTERNATIONAL UNITS TABLET PO SCH (21:26)
[2017-08-09] MEDS: MULTIVITAMINS/MINERALS THERAP 1 TAB PO SCH (21:26)
[2017-08-09] MEDS: PRAVASTATIN 20 MG TAB PO SCH (21:27)
--- NOTE | 2017-08-09 21:34 | ECGEPIP ---
Stationary ECG Study [facility] Test Date: 2017-08-09 Pat Name: JORDANA BANUELOS Department: Room: [place] [address] Gender: F Financial Aid Officer: ARACELIS : 1930 Requested By: JANAE Du Order Number: [id number] Reading MD: Vic Busch Measurements Intervals [place] Rate: 72 P: 79 SC: 163 QRS: -3 QRSD: 98 T: -8 QT: 426 QTc: 469 Interpretive Statements Normal sinus rhythm with PACs Q wave in III Incomplete right bundle branch block Nonspecific ST-T wave abnormalities No significant change when compared to prior tracing of 07/11/2016 Electronically Signed On 08-09-2017 21:34:28 EST by Vic Busch
[2017-08-09 22:00] VITALS: BP 121/58
[2017-08-09] MEDS: ACETAMINOPHEN TAB 650MG DOSE (2X325MG) PO PRN (22:38)
[2017-08-10] MEDS: METOCLOPRAMIDE 10 MG TAB PO SCH ×5 (00:46→23:49)
[2017-08-10] MEDS: PIPERACILLIN/TAZOBACTAM SOD 2.25 GM in APPROPRIATE DILUENT 1 EA IV SCH ×3 (02:00→18:16)
[2017-08-10] MEDS: KCL 20MEQ IN D5/0.45NS 1000ML 1,000 ML IV SCH (04:00)
[2017-08-10 06:00] VITALS: BP 121/74
[2017-08-10] MEDS: HumaLOG INSULIN (NovoLOG) PER UNIT SC SCH ×5 (06:00→23:48)
[2017-08-10] MEDS: HEPARIN SOD (PORCINE) 5000 UNITS/ML VIAL SC SCH ×3 (06:21→21:30)
[2017-08-10 07:02] LABS: MEAN CORPUSCULAR HEMOGLOBIN 27.7 pg (27.0-33.0); MEAN CORPUSCULAR HGB CONC 31.8 g/dl (32.0-36.5); MEAN CORPUSCULAR VOLUME 87.2 fl (80.0-96.0); PLATELET COUNT, AUTOMATED 353 10^3/uL (150-450); RED CELL DISTRIBUTION WIDTH 15.8 % (11.5-14.5); WHITE BLOOD COUNT 12.5 10^3/uL (4.0-10.0)
[2017-08-10 07:26] LABS: ALBUMIN 2.3 GM/DL (3.2-5.2); ALBUMIN/GLOBULIN RATIO 0.74 (1.00-1.93); BILIRUBIN,TOTAL 0.5 MG/DL (0.2-1.0); CALCIUM LEVEL 8.3 MG/DL (8.8-10.2); CREATININE FOR GFR 2.1 MG/DL (0.55-1.02); GLOMERULAR FILTRATION RATE 23.6 (>32); MAGNESIUM LEVEL 2.1 MG/DL (1.8-2.4); TOTAL PROTEIN 5.4 GM/DL (6.4-8.2)
[2017-08-10] MEDS: BISOPROLOL FUMARATE 10 MG TAB PO SCH (08:13)
[2017-08-10] MEDS: BISACODYL 10 MG SUPP XX SCH ×2 (08:13→21:30)
[2017-08-10] MEDS: ALLOPURINOL 100 MG TAB PO SCH (08:13)
[2017-08-10] MEDS: ASPIRIN 81 MG ENTERIC TAB PO SCH (08:14)
[2017-08-10] MEDS: PANTOPRAZOLE 40MG INJ (PROTONIX) (C9113) IV SCH (08:14)
--- NOTE | 2017-08-10 08:55 | IPN ---
DATE: 08/09/2017 SUBJECTIVE: The patient was seen and examined at the bedside today, morning. She was actually sitting on the sofa. She continues to be on nasogastric tube suctioning. She is taking a little bit of liquids, but she has not started a regular diet. The patient continues to be on intravenous (IV) fluids. She is otherwise hemodynamically stable. Her renal function continues to improve. Creatinine is down to 2.2 today. REVIEW OF SYSTEMS: The patient denies any fever, chills, rigors. She denies any chest pain, shortness of breath. She continues to have nasogastric tube with suctioning. She reports mild abdominal pain, and the patient also reports that a laxative was given through the ileostomy today. The rest of the review of systems is negative. OBJECTIVE: VITAL SIGNS: Temperature is 98.1 degrees Fahrenheit. Blood pressure is 124/68, pulse is 63, respiratory rate of 18, saturating 91% on room air. INTAKE/OUTPUT: Urine output recorded as 550 mL yesterday. There is no urine output recorded so far today since overnight. Gastric drainage so far is 1.1 liters. Weight on the bed scale is not available. PHYSICAL EXAMINATION: GENERAL: The patient is awake, alert, oriented times three, sitting on the sofa, no apparent distress. HEAD AND NECK EXAM: Extraocular muscles intact. Pupils equally round and reactive to light. Mucous membranes are moist. She has an nasogastric tube attached to suctioning at this time. Neck is supple. There is no jugular venous distention (JVD). CARDIOVASCULAR: S1, S2, regular rate. No murmur, rub or gallop. RESPIRATORY: Chest is clear to auscultation bilaterally. Bilateral equal air entry. No rales or rhonchi. ABDOMEN: Soft. Decreased bowel sounds all over. She has an ileostomy in the right lower quadrant, slight amount of greenish stools found in the ileostomy bag. MUSCULOSKELETAL: No clubbing or cyanosis. Pulses are 2+. CENTRAL NERVOUS SYSTEM: No focal neurological deficit. Power is 5/5 in all extremities. SKIN: No rashes or ulcers. PSYCHIATRIC: Normal mood and affect. LAB REVIEW: CBC showed a WBC of 8.6, hemoglobin 9.2, platelets are 363. BMP showed sodium 137, potassium 3.1,chloride 104, bicarbonate 27, BUN 32, creatinine is 2.2; It was 2.4 yesterday. Calcium 8.3, magnesium 2.2, albumin is 2.1. CURRENT INPATIENT MEDICATIONS: The patient's medications were all reviewed by me. Her IV fluids were changed to KCl 20 mEq and D5 half normal saline at 125 mL per hour. She continues to be on intravenous (IV) Zosyn. She was also given a dose of potassium chloride 20 mEq by mouth times one dose. There is no other change in the medications today as compared with yesterday. ASSESSMENT: 87-year-old female with past medical history of hypertension, noninsulin-dependent diabetes, chronic kidney disease, stage IV, with a baseline creatinine of around 2, admitted at this time because of small bowel obstruction. Nephrology service following the patient for management of acute kidney injury superimposed on chronic kidney disease stage IV and electrolyte abnormality. PLAN: 1. Acute kidney injury superimposed on chronic kidney disease stage IV. The patient's renal function continues to improve. Continue IV fluid hydration at this time. Creatinine is down to 2.2. 2. Hypokalemia. The patient's IV fluid has been changed to KCl 20 mEq and D5 half normal saline at 125 mL per hour. The patient was also given a dose of oral potassium today (morning) by the primary team. Potassium level is expected to improve in the next 24 hours with the IV fluids. 3. Small bowel obstruction. The patient still has nasogastric tube attached to the suctioning. She has started sipping some liquids. The rest of the management is as per primary team. 4. Hypertension. Blood pressure is acceptable at this time. Continue current dose of bisoprolol 10 mg daily. 5. Chronic gout secondary to chronic kidney disease. Continue current dose of allopurinol 200 mg daily.
--- NOTE | 2017-08-10 09:26 | REP ---
Clinical: Chest pain. Dyspnea. Comparison: 09/17/2014. Findings: Nasogastric tube courses below left hemidiaphragm. Mediastinum and cardiac silhouette are stable. Chronic pleuroparenchymal changes are appreciated and small pleural effusions with associated atelectasis cannot be excluded. No pneumothorax. Skeletal structures demonstrate chronic stable changes including scoliosis. Impression: Chronic basilar changes. Cannot exclude small pleural effusion or basilar atelectasis. Signed by Jamie Moore MD 08/10/2017 09:18 A
--- NOTE | 2017-08-10 14:09 | IPNPDOC ---
Text Note Date of Service The patient was seen on 08/10/17. NOTE Subjective: Patient is an 87 year old female with a PMHx of TIA 2015, A. fib, CAD , HTN, DLP, NIDDM2, Hx of DVT 2015, Ulcerative colitis s/p Ileostomy who presented to the ER with lower abdominal pain, nausea and vomiting for 1 day duration. She was admitted to surgical service for small bowel obstruction hospitals were then called on consultation for management of her medical problems, including worsening kidney function and HTN. Patient was seen and examined at the bedside. Has been noted to have increased output via her ileostomy. She denies any nausea or vomiting. Notes mild abdominal discomfort on the lower aspect of her abdomen. Denies any fevers or dysuria. Objective: Vitals (See below) General: Lying in bed, no acute distress, comfortable, AAOx3 HEENT: NC, AT CVS: RRR, +S1S2 Lungs: Fair air entry b/l, -w/r/r Abdomen: Soft, ND, mild tenderness noted at lower quadrants, + ileostomy Extremities: - Edema, - Calf tenderness Assessment and plan: Small bowel obstruction - She needs to have intermittent nausea, and had complaints of abdominal pain this morning - Physical , but some evidence of left lower and right lower abdominal tenderness - NG tube still in place, however, has been clamped - Currently on Zosyn - Currently on liquid diet - Managed by surgical team Acute on chronic renal failure - likely 2/2 prerenal etiology - 2/2 poor intake , intrarenal etiology - 2/2 Toradol - Cr baseline noted to be around 1.8 - 2.0 - Creatinine is approaching baseline and shows continued improvement with IV fluid hydration - Avoid nephrotoxic medications - Dr. Casas (Nephrology) has been consulted; appreciate their input s/p chest pain - Chest pain that occurred on 08/09 AM - EKG was acquired and compared to prior EKG from 2016, no significant changes were noted - Cardiac markers were quiet this morning and have been negative - c/w aspirin 81 Atrial fibrillation - Currently rate controlled - Continue with rate control with bisoprolol - Currently only on aspirin 81 NIDDM2 - c/w insulin sliding scale s/p Lactic acidosis TIA - c/w aspirin 81 CAD - c/w aspirin 81 HTN - Blood pressure remains well controlled - c/w bisoprolol DLP - c/w Pravastatin Hx of DVT Gout - c/w allopurinol Ulcerative colitis s/p Ileostomy - Chronic GI prophylaxis - c/w Protonix DVT prophylaxis - c/w heparin VS,Fishbone, I+O VS, Fishbone, I+O Laboratory Tests 08/10/17 06:36 Red Blood Count 3.68 L, Mean Corpuscular Volume 87.2, Mean Corpuscular Hemoglobin 27.7, Mean Corpuscular Hemoglobin Concent 31.8 L, Red Cell Distribution Width 15.8 H, Calcium Level 8.3 L, Aspartate Amino Transf (AST/SGOT ) 26, Alanine Aminotransferase (ALT/SGPT) 28, Alkaline Phosphatase 85, Total Bilirubin 0.5, Total Protein 5.4 L, Albumin 2.3 L Vital Signs Date Time Temp Pulse Resp B/P (MAP) Pulse Ox O2 Delivery O2 Flow Rate FiO2 08/10/17 08:13 80 134/72 08/10/17 06:00 97.6 16 08/09/17 22:00 95 Room Air I&O- Last 24 Hours up to 6 AM 08/11/17 06:00 Intake Total 1235 ml Output Total 850 ml Balance 385 ml HEMANT SKY MD Aug 10, 2017 14:09
[2017-08-10] MEDS: VITAMIN D 1,000 INTERNATIONAL UNITS TABLET PO SCH (21:30)
[2017-08-10] MEDS: PRAVASTATIN 20 MG TAB PO SCH (21:30)
[2017-08-10] MEDS: MULTIVITAMINS/MINERALS THERAP 1 TAB PO SCH (21:30)
[2017-08-10 22:00] VITALS: BP 149/73
[2017-08-11] MEDS: PIPERACILLIN/TAZOBACTAM SOD 2.25 GM in APPROPRIATE DILUENT 1 EA IV SCH ×3 (01:46→18:36)
[2017-08-11] MEDS: ACETAMINOPHEN TAB 650MG DOSE (2X325MG) PO PRN ×2 (02:07→20:21)
[2017-08-11] MEDS ORDERED: CALCIUM CARBONATE 500 MG CHEW U/D PO ONE (02:45)
[2017-08-11] MEDS: HumaLOG INSULIN (NovoLOG) PER UNIT SC SCH ×3 (05:59→18:35)
[2017-08-11 06:00] VITALS: BP 150/80
[2017-08-11 06:04] LABS: MEAN CORPUSCULAR HEMOGLOBIN 27.8 pg (27.0-33.0); MEAN CORPUSCULAR HGB CONC 31.9 g/dl (32.0-36.5); MEAN CORPUSCULAR VOLUME 87.1 fl (80.0-96.0); PLATELET COUNT, AUTOMATED 357 10^3/uL (150-450); RED CELL DISTRIBUTION WIDTH 15.9 % (11.5-14.5); WHITE BLOOD COUNT 13.1 10^3/uL (4.0-10.0)
[2017-08-11] MEDS: METOCLOPRAMIDE 10 MG TAB PO SCH ×3 (06:04→18:36)
[2017-08-11] MEDS: HEPARIN SOD (PORCINE) 5000 UNITS/ML VIAL SC SCH ×3 (06:04→21:43)
[2017-08-11 06:26] LABS: ALBUMIN 2.2 GM/DL (3.2-5.2); ALBUMIN/GLOBULIN RATIO 0.58 (1.00-1.93); BILIRUBIN,TOTAL 0.5 MG/DL (0.2-1.0); CALCIUM LEVEL 8.3 MG/DL (8.8-10.2); CREATININE FOR GFR 1.99 MG/DL (0.55-1.02); GLOMERULAR FILTRATION RATE 25.1 (>32); MAGNESIUM LEVEL 2.1 MG/DL (1.8-2.4)
--- NOTE | 2017-08-11 08:10 | REP ---
Clinical: Leukocytosis. Technique: Carley Campoverde, [facility] and lateral views of the sinuses. Findings: Nasogastric tube in satisfactory position. Mucosal thickening to the frontal sinuses suggested. The remainder of the sinuses appear relatively well aerated. No fluid levels are identified. No foreign body. Osseous structures are intact. Nasopharyngeal and oral pharyngeal airway appears relatively normal. Impression: Mucosal thickening to the frontal sinuses suggested Signed by Jamie Moore MD 08/11/2017 08:02 A
--- NOTE | 2017-08-11 08:30 | REP ---
Clinical: Leukocytosis. Technique: Axial noncontrast images from the thoracic inlet to the upper abdomen with coronal and sagittal re-formations. Comparison: 09/17/2014. Findings: Small bilateral pleural effusions and associated atelectasis (left greater than right) identified. Chronic age related changes including mild bronchiectasis. No adenopathy. Nasogastric tube identified through the esophagus with a small hiatal hernia at the gastroesophageal junction. Atherosclerotic changes of the aorta and coronary arteries without aneurysm. Mild cardiomegaly without significant pericardial effusion. Surrounding musculoskeletal structures demonstrate degenerative changes without focal osseous abnormality limited upper abdomen demonstrates normal bilateral adrenal glands. Impression: Small pleural effusions and bibasilar consolidation/atelectasis (left greater than right). Signed by Jamie Moore MD 08/11/2017 08:22 A
[2017-08-11] MEDS: ALLOPURINOL 100 MG TAB PO SCH (08:32)
[2017-08-11] MEDS: ASPIRIN 81 MG ENTERIC TAB PO SCH (08:32)
[2017-08-11] MEDS: BISOPROLOL FUMARATE 10 MG TAB PO SCH (08:32)
[2017-08-11] MEDS: PANTOPRAZOLE 40MG INJ (PROTONIX) (C9113) IV SCH (08:32)
[2017-08-11] MEDS: BISACODYL 10 MG SUPP XX SCH ×2 (08:33→20:22)
--- NOTE | 2017-08-11 09:05 | IPNPDOC ---
Text Note Date of Service The patient was seen on 08/11/17. NOTE Subjective: Patient is an 87 year old female with a PMHx of TIA 2015, A. fib, CAD , HTN, DLP, NIDDM2, Hx of DVT 2014, Ulcerative colitis s/p Ileostomy who presented to the ER with lower abdominal pain, nausea and vomiting for 1 day duration. She was admitted to surgical service for small bowel obstruction hospitals were then called on consultation for management of her medical problems, including worsening kidney function and HTN. Patient was seen and examined at the bedside. Patient reports that she does not have any nausea, vomiting or any abdominal pain. Her output from her ileostomy site has increased. She denies any cough or shortness of breath. Denies any dysuria. Objective: Vitals (See below) General: Lying in bed, no acute distress, comfortable, AAOx3 HEENT: NC, AT CVS: RRR, +S1S2 Lungs: Fair air entry b/l, -w/r/r Abdomen: Soft, ND, mild tenderness noted at lower quadrants, + ileostomy Extremities: - Edema, - Calf tenderness Assessment and plan: s/p Small bowel obstruction - Denies nausea, abdominal pain - Physical, without any abdominal tenderness, bowel sounds active, ileostomy output increased - NG tube has been clamped over last 24 hours will be removed today - Currently on Zosyn - Currently on liquid diet - Managed by surgical team Acute on chronic renal failure - likely 2/2 prerenal etiology - 2/2 poor intake , intrarenal etiology - 2/2 Toradol - Cr baseline noted to be around 1.8 - 2.0 - Creatinine appears to be at baseline at this time - Avoid nephrotoxic medications - Dr. Casas (Nephrology) has been consulted; appreciate their input s/p chest pain - Chest pain that occurred on 08/09 AM - EKG was acquired and compared to prior EKG from 2016, no significant changes were noted - Cardiac markers were quiet this morning and have been negative - c/w aspirin 81 Leukocytosis - possibly 2/2 sinusitis, atelectasis - Patient denies any cough, shortness of breath or dysuria - Remains afebrile - Urine analysis 08/10, negative for any signs of infection - CT chest 08/11: Small pleural effusions and bibasilar consolidation/ atelectasis (L>R) - XR Sinuses 08/11: Mucosal thickening to the frontal sinuses suggested - Has been on Zosyn from admission (Day #6) - Will have NG tube removed today, continue with incentive spirometry - We'll follow repeat CBC in AM; if leukocytosis persists, will change antibiotics to Fluoroquinolones Atrial fibrillation - Currently rate controlled - Continue with rate control with bisoprolol - Currently only on aspirin 81 NIDDM2 - c/w insulin sliding scale s/p Lactic acidosis TIA - c/w aspirin 81 CAD - c/w aspirin 81 HTN - Blood pressure remains well controlled - c/w bisoprolol DLP - c/w Pravastatin Hx of DVT Gout - c/w allopurinol Ulcerative colitis s/p Ileostomy - Chronic GI prophylaxis - c/w Protonix DVT prophylaxis - c/w heparin VS,Fishbone, I+O VS, Fishbone, I+O Laboratory Tests 08/11/17 05:39 Red Blood Count 3.56 L, Mean Corpuscular Volume 87.1, Mean Corpuscular Hemoglobin 27.8, Mean Corpuscular Hemoglobin Concent 31.9 L, Red Cell Distribution Width 15.9 H, Calcium Level 8.3 L, Aspartate Amino Transf (AST/SGOT ) 67 H, Alanine Aminotransferase (ALT/SGPT) 66, Alkaline Phosphatase 101, Total Bilirubin 0.5, Total Protein 6.0 L, Albumin 2.2 L Vital Signs Date Time Temp Pulse Resp B/P (MAP) Pulse Ox O2 Delivery O2 Flow Rate FiO2 08/11/17 08:32 75 150/80 08/11/17 06:00 97.9 18 96 Room Air HEMANT SKY MD Aug 11, 2017 09:05
--- NOTE | 2017-08-11 10:29 | IPN ---
DATE: 08/10/2017 Mrs. Roman is seen this morning on her bedside. She is sitting in the chair at the time of my visit. She still has a nasogastric tube in place; however, it is not currently hooked to suction. She is receiving IV fluid. The patient was admitted with abdominal pain and found to have small-bowel obstruction. She has a colostomy, which is now draining greenish fluid. The patient had acute renal failure due to dehydration, which has been improving since admission with IV fluid hydration. She has no complaints at this point and denies any headache, dyspnea or chest pain. She has no fever or chills. PHYSICAL EXAMINATION: Temperature 97.6 degrees Fahrenheit, heart rate 80 per minute and respiratory rate 16 per minute. Blood pressure 134/72 mmHg and oxygen saturation 95% on room air. Head is atraumatic. She has a nasogastric tube in her right nostril. Pupils are equal and reactive to light and sclera is anicteric. Neck is supple and without jugular venous distention (JVD) or thyroid enlargement. Heart sounds are regular and lungs sound clear to auscultation bilaterally. Abdomen is soft and bowel sounds are present. Colostomy bag has about 300 mL of greenish liquid stool. Extremities have no cyanosis or clubbing. Skin has no rash or ulcers. Neurologically, she is awake, alert and oriented times three. Today's labs show sodium level 137, potassium 4.0, BUN 23 and creatinine 2.10. Glucose 183 and calcium 8.3. WBC count 12.5, hemoglobin 10.2, and hematocrit 32. PROBLEMS: 1. Acute renal failure superimposed on chronic kidney disease. The patient is known to have a baseline creatinine of about to 1.9 to 2.0 mg/dl. Her kidney function has improved significantly since admission. Currently, we will continue with IV fluid hydration as the patient has a nasogastric tube in place and no oral intake. Renal function will be repeated again tomorrow morning. 2. Hypokalemia. Potassium level has corrected, and we will continue with potassium supplement in the IV fluid. Electrolytes will be checked again tomorrow morning. 3. Small bowel obstruction. The patient seems to be improved as her colostomy is now functioning with drainage of greenish liquid stools. Her nasogastric tube remains in place. We will defer to surgery to remove her nasogastric tube. 4. Leukocytosis. The patient remains on Zosyn 2.25 grams every 8 hours. She does not seem to have any obvious source of infection at this point.
[2017-08-11] MEDS: CAPSAICIN 0.025% CR 60 GM TOP PRN (13:30)
[2017-08-11 14:00] VITALS: BP 70/52
[2017-08-11] MEDS ORDERED: CALCIUM CARBONATE 500 MG CHEW U/D PO PRN (20:00)
[2017-08-11] MEDS: VITAMIN D 1,000 INTERNATIONAL UNITS TABLET PO SCH (20:21)
[2017-08-11] MEDS: PRAVASTATIN 20 MG TAB PO SCH (20:22)
[2017-08-11] MEDS: MULTIVITAMINS/MINERALS THERAP 1 TAB PO SCH (20:22)
[2017-08-11 22:00] VITALS: BP 135/78
[2017-08-11 23:59] VITALS: BP 122/63
[2017-08-12] MEDS: METOCLOPRAMIDE 10 MG TAB PO SCH ×2 (00:22→06:06)
[2017-08-12] MEDS: HumaLOG INSULIN (NovoLOG) PER UNIT SC SCH ×4 (00:22→17:25)
[2017-08-12] MEDS: PIPERACILLIN/TAZOBACTAM SOD 2.25 GM in APPROPRIATE DILUENT 1 EA IV SCH (02:29)
--- NOTE | 2017-08-12 05:14 | IPN ---
DATE OF SERVICE: 08/11/2017 Mrs. Roman is seen this morning on her bedside. Her nasogastric tube has been removed this morning and she is feeling well. She does have some discomfort in her abdomen, however, denies any vomiting. Her colostomy is functioning. She denies any dyspnea or chest pain. She was initially admitted with small bowel obstruction which seems to have improved as her colostomy has been functioning. For last couple of days, she has worsening leukocytosis which was felt to be related to the nasogastric tube which has already been removed. The patient has been afebrile and her kidney function has been improving. Initially, she was felt to be dehydrated and has been receiving intravenous (IV) fluids. PHYSICAL EXAMINATION: Temperature 97.9 degrees Fahrenheit, heart rate 75 per minute and respiratory rate 18 per minute. Blood pressure 150/80 mmHg and oxygen saturation 96% on room air. Head is atraumatic. Pupils are equal and reactive to light and sclera is anicteric. Ears, nose and throat are unremarkable. Heart sounds are regular and lungs sound clear to auscultation bilaterally. Abdomen is soft and minimally tender. Colostomy is functioning with greenish liquid stool in the colostomy bag. Extremities have no cyanosis or clubbing. Skin has no rash or ulcers. Neurologically, she is awake, alert and oriented times three. Today's labs show WBC count 13.1, hemoglobin 9.9 and hematocrit 31. Sodium 139 and potassium 4.0. BUN 21 and creatinine 1.99. PROBLEMS: 1. Acute kidney injury superimposed on chronic kidney disease. The patient has improvement in her kidney function since admission and she is now close to her preadmission baseline. I would suggest to continue with IV fluid until her oral intake is very well tolerated and adequate. 2. Anemia. Her anemia is mild and stable. I will continue to monitor and recheck her complete blood count (CBC) tomorrow. 3. Small bowel obstruction. Nasogastric tube has been removed and the patient seems to be feeling well so far. 4. Leukocytosis. Etiology remains uncertain. She had a chest CT scan done which showed only small pleural effusion and bibasilar atelectasis. The patient can probably benefit from incentive spirometry.
[2017-08-12 06:00] VITALS: BP 121/65
[2017-08-12] MEDS: HEPARIN SOD (PORCINE) 5000 UNITS/ML VIAL SC SCH ×3 (06:06→21:37)
[2017-08-12 06:32] LABS: BASO # 0.1 10^3/uL (0.0-0.2); BASO % 0.4 % (0.0-1.0); EOS # 0.3 10^3/uL (0.0-0.50); EOS % 2.2 % (0.0-3.0); IMMATURE GRANULOCYTE % 4.7 % (0-0); LYMPH # 1.7 10^3/uL (1.5-4.5); LYMPH % 13.5 % (24.0-44.0); MEAN CORPUSCULAR HEMOGLOBIN 27.8 pg (27.0-33.0); MEAN CORPUSCULAR HGB CONC 31.6 g/dl (32.0-36.5); MEAN CORPUSCULAR VOLUME 87.8 fl (80.0-96.0); MONO # 1.3 10^3/uL (0.0-0.8); MONO % 10.5 % (0.0-5.0); NEUTROPHILS # 8.4 10^3/uL (1.8-7.7); NEUTROPHILS % 68.7 % (36.0-66.0); PLATELET COUNT, AUTOMATED 389 10^3/uL (150-450); WHITE BLOOD COUNT 12.2 10^3/uL (4.0-10.0)
[2017-08-12 06:45] LABS: ALBUMIN 2.3 GM/DL (3.2-5.2); ALBUMIN/GLOBULIN RATIO 0.59 (1.00-1.93); BILIRUBIN,TOTAL 0.4 MG/DL (0.2-1.0); CALCIUM LEVEL 8.9 MG/DL (8.8-10.2); CREATININE FOR GFR 2.43 MG/DL (0.55-1.02); GLOMERULAR FILTRATION RATE 19.9 (>32); MAGNESIUM LEVEL 2.2 MG/DL (1.8-2.4); POTASSIUM SERUM 3.9 MEQ/L (3.5-5.1); TOTAL PROTEIN 6.2 GM/DL (6.4-8.2)
[2017-08-12] MEDS: BISOPROLOL FUMARATE 10 MG TAB PO SCH (09:00)
[2017-08-12] MEDS: BISACODYL 10 MG SUPP XX SCH ×2 (09:00→20:54)
[2017-08-12] MEDS: ASPIRIN 81 MG ENTERIC TAB PO SCH (09:19)
[2017-08-12] MEDS: ALLOPURINOL 100 MG TAB PO SCH (09:19)
--- NOTE | 2017-08-12 09:32 | IPNPDOC ---
Text Note Date of Service The patient was seen on 08/12/17. NOTE Subjective: Patient is an 87 year old female with a PMHx of TIA 2015, A. fib, CAD , HTN, DLP, NIDDM2, Hx of DVT 2014, Ulcerative colitis s/p Ileostomy who presented to the ER with lower abdominal pain, nausea and vomiting for 1 day duration. She was admitted to surgical service for small bowel obstruction hospitals were then called on consultation for management of her medical problems, including worsening kidney function and HTN. Patient was seen and examined at the bedside. Patient notes that she is expensive, some lower abdominal pain after she had a meal. She denies any nausea , vomiting, diarrhea or constipation. Her output via her ileostomy still is adequate. Objective: Vitals (See below) General: Lying in bed, no acute distress, comfortable, AAOx3 HEENT: NC, AT, s/p NG tube CVS: RRR, +S1S2 Lungs: Fair air entry b/l, -w/r/r Abdomen: Soft, ND, mild tenderness noted at lower quadrants, + ileostomy Extremities: - Edema, - Calf tenderness Assessment and plan: s/p Small bowel obstruction - Denies nausea, vomiting; reports mild abdominal pain - Physical, without any abdominal tenderness, bowel sounds active, ileostomy output increased - s/p NG tube - s/p Zosyn for 7 days - Currently on liquid diet; will advance as tolerated and as per surgical team - Managed by surgical team Acute on chronic renal failure - likely 2/2 prerenal etiology - 2/2 poor intake , intrarenal etiology - 2/2 Toradol - Cr baseline noted to be around 1.8 - 2.0 - Mild elevation in Cr this morning; possibly 2/2 hypotensive episode yesterday - Avoid nephrotoxic medications - Will restart IV fluid hydration - Dr. Casas / Dr. Avelar (Nephrology) has been consulted; appreciate their input s/p chest pain - Chest pain that occurred on 08/09 AM - EKG was acquired and compared to prior EKG from 2016, no significant changes were noted - Cardiac markers were quiet this morning and have been negative - c/w aspirin 81 Leukocytosis - possibly 2/2 sinusitis, atelectasis - Patient denies any cough, shortness of breath or dysuria - Remains afebrile - Leukocytosis improving - Urine analysis 08/10, negative for any signs of infection - CT chest 08/11: Small pleural effusions and bibasilar consolidation/ atelectasis (L>R) - XR Sinuses 08/11: Mucosal thickening to the frontal sinuses suggested - s/p Zosyn (Completed 7 day course) - s/p NG tube Hypotensive episode - possibly 2/2 medications - Occurred on 08/11 afternoon - Patient was sitting up in chair and was noted to have light-headedness and a low BP - She was transitioned back to her bed and had resolution of her symptoms and normalization of her BP - Has not experienced any hypotensive episodes since then Atrial fibrillation - Currently rate controlled - Continue with rate control with bisoprolol - Currently only on aspirin 81 NIDDM2 - c/w insulin sliding scale s/p Lactic acidosis TIA - c/w aspirin 81 CAD - c/w aspirin 81 HTN - Blood pressure remains well controlled - c/w bisoprolol DLP - c/w Pravastatin Hx of DVT Gout - c/w allopurinol Ulcerative colitis s/p Ileostomy - Chronic GI prophylaxis - c/w Protonix DVT prophylaxis - c/w heparin Disposition: - Will continue with physical therapy VS,Chiqui, I+O VS, Chiqui, I+O Laboratory Tests 08/12/17 05:57 Red Blood Count 3.60 L, Mean Corpuscular Volume 87.8, Mean Corpuscular Hemoglobin 27.8, Mean Corpuscular Hemoglobin Concent 31.6 L, Red Cell Distribution Width 16.0 H, Neutrophils (%) (Auto) 68.7 H, Lymphocytes (%) (Auto ) 13.5 L, Monocytes (%) (Auto) 10.5 H, Eosinophils (%) (Auto) 2.2, Basophils (% ) (Auto) 0.4, Neutrophils # (Auto) 8.4 H, Lymphocytes # (Auto) 1.7, Monocytes # (Auto) 1.3 H, Eosinophils # (Auto) 0.3, Basophils # (Auto) 0.1, Calcium Level 8.9, Aspartate Amino Transf (AST/SGOT) 59 H, Alanine Aminotransferase (ALT/SGPT ) 84 H, Alkaline Phosphatase 112, Total Bilirubin 0.4, Total Protein 6.2 L, Albumin 2.3 L Vital Signs Date Time Temp Pulse Resp B/P (MAP) Pulse Ox O2 Delivery O2 Flow Rate FiO2 08/12/17 06:00 97.8 62 16 121/65 (83) 94 Room Air I&O- Last 24 Hours up to 6 AM 08/13/17 06:00 Intake Total 200 ml Output Total 350 ml Balance -150 ml HEMANT SKY MD Aug 12, 2017 09:32
[2017-08-12] MEDS: ACETAMINOPHEN TAB 650MG DOSE (2X325MG) PO PRN (09:34)
[2017-08-12] MEDS: ONDANSETRON 4MG/2ML VIAL (J2405) IV PRN (09:48)
[2017-08-12 10:02] VITALS: BP 115/78
[2017-08-12] MEDS ORDERED: BISOPROLOL FUMARATE 5 MG TAB PO ONE (10:30)
[2017-08-12] MEDS: NS 1,000 ML IV SCH ×2 (10:56→22:15)
--- NOTE | 2017-08-12 12:39 | REP ---
Clinical: Small bowel obstruction. Comparison: 08/06/2017. Findings: Distended small bowel is again appreciated and essentially unchanged. No obvious free air. No organomegaly. Postsurgical changes are appreciated along with chronic degenerative changes of the musculoskeletal structures. Impression: No significant change from prior examination. Continued evidence for small bowel obstruction. Signed by Jamie Moore MD 08/12/2017 12:31 P
[2017-08-12] MEDS: CAPSAICIN 0.025% CR 60 GM TOP PRN (13:30)
[2017-08-12 14:00] VITALS: BP 116/68
--- NOTE | 2017-08-12 16:56 | IPN ---
DATE: 08/12/2017 The patient was admitted with a bowel obstruction on August 06. Her nasogastric (NG) tube was removed on August 11, and she has been on full liquids since yesterday. She reports that she has been having some nausea this morning following breakfast with one episode of emesis. She has had some output from her ileostomy. Vital signs show that she is afebrile with a pulse of 62 most recently with a blood pressure 115/78. Intake and output show 400 in yesterday most of which was oral intake. Her output was recorded as 2300 with 2000 of that coming from her ileostomy. Patient is alert and oriented. She does report feeling full with some nausea. Sclerae are anicteric. Mucous membranes are moist. Heart exam shows a perhaps mildly irregular rhythm. The lungs are clear. The abdomen is mildly protuberant. She has an ileostomy with an appliance in the right lower quadrant with some watery, greenish fluid in the bag. There is a suggestion of some mild tympany to percussion in the mid and left midabdomen. She is somewhat full in the left side of the abdomen with some very mild diffuse tenderness to palpation. Labs show a white count of 12, hemoglobin 10, hematocrit 32, and her differential shows 69% neutrophils, 14 lymphocytes, and 10 monocytes. Chemistry profile shows a BUN of 24, creatinine 2.4, which is up somewhat from yesterday, and her electrolytes are normal. IMPRESSION: Recurrent nausea with one episode of vomiting this morning with some persistent abdominal distension suggestive of some persistent degree of obstruction. She has had a good output from her ileostomy over the last day. PLAN: I advised her to go cautiously with any oral fluids and to hold off intake as long as she feels nauseous. The hospitalist started her on some intravenous (IV) normal saline this morning, and I will continue this. I will obtain a KUB to get a better impression of her status of her bowel obstruction. ABDIEL
[2017-08-12] MEDS: MULTIVITAMINS/MINERALS THERAP 1 TAB PO SCH (21:36)
[2017-08-12] MEDS: PRAVASTATIN 20 MG TAB PO SCH (21:37)
[2017-08-12] MEDS: VITAMIN D 1,000 INTERNATIONAL UNITS TABLET PO SCH (21:37)
[2017-08-12 22:00] VITALS: BP 108/68
[2017-08-13] MEDS: ACETAMINOPHEN TAB 650MG DOSE (2X325MG) PO PRN (00:20)
[2017-08-13] MEDS: BISACODYL 10 MG SUPP XX SCH ×4 (00:20→21:47)
[2017-08-13] MEDS: HumaLOG INSULIN (NovoLOG) PER UNIT SC SCH ×4 (00:20→17:37)
[2017-08-13] MEDS: HEPARIN SOD (PORCINE) 5000 UNITS/ML VIAL SC SCH ×3 (05:31→22:00)
[2017-08-13 06:00] VITALS: BP 122/70
[2017-08-13 06:36] LABS: MEAN CORPUSCULAR HEMOGLOBIN 27.5 pg (27.0-33.0); MEAN CORPUSCULAR HGB CONC 31.7 g/dl (32.0-36.5); MEAN CORPUSCULAR VOLUME 86.8 fl (80.0-96.0); PLATELET COUNT, AUTOMATED 416 10^3/uL (150-450); RED CELL DISTRIBUTION WIDTH 16.4 % (11.5-14.5); WHITE BLOOD COUNT 13.1 10^3/uL (4.0-10.0)
[2017-08-13 06:57] LABS: ALBUMIN 2.4 GM/DL (3.2-5.2); ALBUMIN/GLOBULIN RATIO 0.63 (1.00-1.93); BILIRUBIN,TOTAL 0.3 MG/DL (0.2-1.0); CALCIUM LEVEL 8.5 MG/DL (8.8-10.2); CREATININE FOR GFR 2.73 MG/DL (0.55-1.02); GLOMERULAR FILTRATION RATE 17.4 (>32); POTASSIUM SERUM 3.5 MEQ/L (3.5-5.1); TOTAL PROTEIN 6.2 GM/DL (6.4-8.2)
[2017-08-13] MEDS: ASPIRIN 81 MG ENTERIC TAB PO SCH (08:33)
[2017-08-13] MEDS: ALLOPURINOL 100 MG TAB PO SCH (08:33)
[2017-08-13] MEDS: BISOPROLOL FUMARATE 10 MG TAB PO SCH ×2 (09:00→10:23)
[2017-08-13] MEDS: NS 1,000 ML IV SCH (10:21)
[2017-08-13] MEDS: CAPSAICIN 0.025% CR 60 GM TOP PRN (12:00)
[2017-08-13 14:00] VITALS: BP 113/63
--- NOTE | 2017-08-13 14:12 | IPNPDOC ---
Text Note Date of Service The patient was seen on 08/13/17. NOTE Subjective: Patient is an 87 year old female with a PMHx of TIA 2015, A. fib, CAD , HTN, DLP, NIDDM2, Hx of DVT 2014, Ulcerative colitis s/p Ileostomy who presented to the ER with lower abdominal pain, nausea and vomiting for 1 day duration. She was admitted to surgical service for small bowel obstruction hospitals were then called on consultation for management of her medical problems, including worsening kidney function and HTN. Patient was seen and examined at the bedside. Patient notes some nausea and vomiting this morning. Denies any abdominal pain, slowly advancing her diet. However, we will continue her with liquids only at this point. Objective: Vitals (See below) General: Lying in bed, no acute distress, comfortable, AAOx3 HEENT: NC, AT, s/p NG tube CVS: RRR, +S1S2 Lungs: Fair air entry b/l, -w/r/r Abdomen: Soft, ND, mild tenderness noted at lower quadrants, + ileostomy Extremities: - Edema, - Calf tenderness Assessment and plan: s/p Small bowel obstruction - Noted to have nausea and vomiting this morning - Physical, without any abdominal tenderness, bowel sounds active, ileostomy output increased - s/p NG tube; s/p Zosyn for 7 days - Diet as per surgery - Managed by surgical team Acute on chronic renal failure - likely 2/2 prerenal etiology - 2/2 poor intake , intrarenal etiology - 2/2 Toradol - Cr baseline noted to be around 1.8 - 2.0 -Creatinine has continued to climb this morning again - Avoid nephrotoxic medications - Will increase rate of normal saline IV fluid hydration - Dr. Casas / Dr. Avelar (Nephrology) has been consulted; appreciate their input s/p chest pain - Chest pain that occurred on 08/09 AM - EKG was acquired and compared to prior EKG from 2016, no significant changes were noted - Cardiac markers were quiet this morning and have been negative - c/w aspirin 81 Leukocytosis - possibly 2/2 sinusitis, atelectasis - Patient denies any cough, shortness of breath or dysuria - Remains afebrile - Leukocytosis stable - Urine analysis 08/10, negative for any signs of infection - CT chest 08/11: Small pleural effusions and bibasilar consolidation/ atelectasis (L>R) - XR Sinuses 08/11: Mucosal thickening to the frontal sinuses suggested - s/p Zosyn (Completed 7 day course) - s/p NG tube Hypotensive episode - possibly 2/2 medications - Occurred on 08/11 afternoon when she was sitting up in chair and was noted to have light-headedness and a low BP - No further episodes noted Atrial fibrillation - Currently rate controlled - Continue with rate control with bisoprolol - Currently only on aspirin 81 NIDDM2 - c/w insulin sliding scale s/p Lactic acidosis TIA - c/w aspirin 81 CAD - c/w aspirin 81 HTN - Blood pressure remains well controlled - c/w bisoprolol DLP - c/w Pravastatin Hx of DVT Gout - c/w allopurinol Ulcerative colitis s/p Ileostomy - Chronic GI prophylaxis - c/w Protonix DVT prophylaxis - c/w heparin Disposition: - Will continue with physical therapy - Awaiting for resolution of SBO / Partial SBO VS,Gilbertobone, I+O VS, Fishbone, I+O Laboratory Tests 08/13/17 06:16 Red Blood Count 3.56 L, Mean Corpuscular Volume 86.8, Mean Corpuscular Hemoglobin 27.5, Mean Corpuscular Hemoglobin Concent 31.7 L, Red Cell Distribution Width 16.4 H, Calcium Level 8.5 L, Aspartate Amino Transf (AST/SGOT ) 40 H, Alanine Aminotransferase (ALT/SGPT) 73, Alkaline Phosphatase 106, Total Bilirubin 0.3, Total Protein 6.2 L, Albumin 2.4 L Vital Signs Date Time Temp Pulse Resp B/P (MAP) Pulse Ox O2 Delivery O2 Flow Rate FiO2 08/13/17 12:00 Room Air 08/13/17 09:00 113/77 08/13/17 06:00 98.2 87 18 95 HEMANT SKY MD Aug 13, 2017 14:12
[2017-08-13] MEDS: KCL 20MEQ IN D5/NS 1000ML 1,000 ML IV SCH (14:55)
--- NOTE | 2017-08-13 15:00 | IPN ---
DATE OF VISIT: 08/13/2017 Mrs. Roman is seen this morning on her bedside. She is feeling well and denies any nausea or vomiting. Her appetite has been poor and oral intake is not up to normal as yet. She denies any dyspnea, chest pain, fever, or chills. Her colostomy is functioning and has been draining greenish liquid stool. She underwent another abdominal x-ray yesterday which did not show any significant change compared with prior exam. There is evidence for small bowel obstruction on her x-ray. On physical examination, temperature 98.2 degrees Fahrenheit, heart rate 88 per minute and respiratory rate 18 per minute. Blood pressure 113/77 mmHg and oxygen saturation 95% on room air. Intake and output records from yesterday showed total intake 1000 and output 2600 mL. Her head is atraumatic. Pupils equal and reactive to light and sclera is anicteric. Ears, nose and throat are unremarkable. Neck is supple and without jugular venous distention (JVD) or thyroid enlargement. Heart sounds are regular and lungs with moderate bilateral air entry, but no wheezing or rales. Abdomen soft. Bowel sounds are present. Her colostomy is functioning. Extremities have no cyanosis or clubbing. Skin has no rash or ulcers. Neurologically, she is awake, alert and oriented times three. Today's labs show WBC count 13.1, hemoglobin 9.8 and hematocrit 30.9. Platelets 416. Sodium 139 and potassium 3.5. BUN 27 and creatinine 2.73. Calcium level is 8.5. PROBLEMS: 1. Acute renal failure superimposed on chronic kidney disease. Likely this is related to prerenal azotemia. She has ongoing small bowel obstruction. She continues to receive IV fluid due to poor oral intake. 2. Small-bowel obstruction. Though she does have some output through her colostomy, radiology evidence for small bowel obstruction has persisted. Defer to surgery for further intervention. Her nasogastric tube has already been removed. 3. Hypokalemia related to poor oral intake. She is receiving IV fluid and I would recommend adding potassium chloride in the IV fluid to prevent further hypokalemia. 4. Gout. She is currently asymptomatic and remains on allopurinol 200 mg daily. 5. Hypertension. Blood pressure is well-controlled on current medications.
[2017-08-13] MEDS: VITAMIN D 1,000 INTERNATIONAL UNITS TABLET PO SCH (21:40)
[2017-08-13] MEDS: PRAVASTATIN 20 MG TAB PO SCH (21:40)
[2017-08-13] MEDS: MULTIVITAMINS/MINERALS THERAP 1 TAB PO SCH (21:40)
[2017-08-14] MEDS: HumaLOG INSULIN (NovoLOG) PER UNIT SC SCH ×3 (00:28→12:22)
[2017-08-14] MEDS: KCL 20MEQ IN D5/NS 1000ML 1,000 ML IV SCH ×2 (00:30→09:09)
--- NOTE | 2017-08-14 01:08 | IPN ---
DATE OF SERVICE: 08/13/2017 HISTORY: The patient is an 87-year-old patient of Dr. Galeano who was admitted 1 week ago with evidence for a small bowel obstruction. She had some nausea and one episode of emesis yesterday. Today, she has felt better with no further nausea or vomiting. She has noted a large amount of fluid from her ileostomy. She denies any pain. She is taking some full liquids currently. VITAL SIGNS: She is afebrile with a pulse that is variable between the mid 50s to low 60s up to 100. Blood pressure is acceptable. Intake and output yesterday was 1000 in with 2600 out. Today she has had 1500 in orally with an additional 1200 of intravenous (IV) fluid. PHYSICAL EXAMINATION: The patient is sitting up in a chair comfortably at the bedside. She is alert and cooperative. Skin is warm and dry. Heart exam shows a regular rhythm with a few seemingly premature beats. Lungs are clear. The abdomen is soft and she has bowel sounds present. LABORATORY STUDIES: This morning showed a white count of 13,000, hemoglobin 10, hematocrit 31, platelets 416,000. Chemistry: Sodium 139, potassium 3.5, chloride 109, CO2 of 23, BUN of 27, creatinine 2.73, and glucose of 108. Protein is 6.2 with an albumin of 2.4. IMAGING: The patient had an abdominal x-ray yesterday that was interpreted as showing no significant change in her bowel obstruction pattern from prior study on the . On my review, I think there may be a slight improvement with somewhat less distention of the small bowel. IMPRESSION: The patient is clinically doing well without evidence of ongoing obstruction at this point. She has been tolerating full liquids. I will order her a soft diet for the morning. If she can tolerate this, then I would anticipate she would be able to be discharged home soon.
[2017-08-14] MEDS: ACETAMINOPHEN TAB 650MG DOSE (2X325MG) PO PRN (03:52)
[2017-08-14] MEDS: HEPARIN SOD (PORCINE) 5000 UNITS/ML VIAL SC SCH (06:04)
[2017-08-14 06:57] LABS: CALCIUM LEVEL 8.5 MG/DL (8.8-10.2); CREATININE FOR GFR 2.21 MG/DL (0.55-1.02); GLOMERULAR FILTRATION RATE 22.3 (>32)
[2017-08-14 08:01] LABS: MAGNESIUM LEVEL 2.1 MG/DL (1.8-2.4)
[2017-08-14 08:02] LABS: MEAN CORPUSCULAR HEMOGLOBIN 28.4 pg (27.0-33.0); MEAN CORPUSCULAR HGB CONC 31.8 g/dl (32.0-36.5); MEAN CORPUSCULAR VOLUME 89.3 fl (80.0-96.0); PLATELET COUNT, AUTOMATED 444 10^3/uL (150-450); RED CELL DISTRIBUTION WIDTH 16.8 % (11.5-14.5); WHITE BLOOD COUNT 12.9 10^3/uL (4.0-10.0)
[2017-08-14 08:15] LABS: ADD MANUAL DIFFER YES; DIFF SLIDE NUMBER 136; POS COUNT POS FLAG; POSITIVE MORPH POS FLAG
[2017-08-14 09:07] VITALS: BP 120/70
[2017-08-14] MEDS: ALLOPURINOL 100 MG TAB PO SCH (09:07)
[2017-08-14] MEDS: BISOPROLOL FUMARATE 10 MG TAB PO SCH (09:07)
[2017-08-14] MEDS: ASPIRIN 81 MG ENTERIC TAB PO SCH (09:08)
[2017-08-14] MEDS: BISACODYL 10 MG SUPP XX SCH (09:08)
[2017-08-14 10:15] LABS: BANDS 5 % (< 11); EOSINOPHILS 5 % (0-5)
[2017-08-14 10:16] LABS: ANISOCYTOSIS 1+; POIKILOCYTOSIS 1+
--- NOTE | 2017-08-14 12:16 | IPN ---
DATE: 08/14/2017 Mrs. Roman is seen this morning on her bedside. She is sitting in the chair and reports feeling better. She is still receiving IV fluid. She reports that she ate well this morning and denies any abdominal pain or vomiting. She has no dyspnea or chest pain. On physical examination, temperature 97 degrees Fahrenheit, heart rate 60 per minute and respiratory rate 18 per minute. Blood pressure 120/70 mmHg and oxygen saturation 98% on room air. Head is atraumatic. Neck is supple and without jugular venous distention (JVD) or thyroid enlargement. There is no oral thrush or ulcers and mucous membranes are healthy. Pupils are equal and reactive to light and sclera is anicteric. Heart sounds regular and lungs with moderate bilateral breath sounds. There is no wheezing. Abdomen is soft and colostomy is functioning. Extremities have no cyanosis or clubbing. Skin has no rash or ulcers. Neurologically, she is awake, alert and oriented times three. Today's labs show WBC count 12.9, hemoglobin 9.3 and hematocrit 29.2. Sodium 142 and potassium 4.0. BUN 26 and creatinine 2.21. PROBLEMS: 1. Acute kidney injury superimposed on chronic kidney disease. Kidney function improved compared with yesterday. However, she has been on IV fluid. It remains to be seen how her kidney function does once she is off IV fluid for 24 hours. If the patient gets discharged today, then she will need follow up as an outpatient. 2. Hypertension. Blood pressure seems well controlled on current antihypertensive medications. She will go home on her chronic outpatient medications. 3. Leukocytosis and anemia. No significant change. She does have some anemia which is probably related to chronic kidney disease and ongoing GI problems. At present, we will continue to monitor her and she is not on Procrit therapy so far. I will check her iron studies today. 4. Disposition. If patient gets discharged from a surgical standpoint, then she will follow up in the office as an outpatient.
--- NOTE | 2017-08-14 13:05 | IPNPDOC ---
Text Note Date of Service The patient was seen on 08/14/17. NOTE Subjective: Patient is an 87 year old female with a PMHx of TIA 2015, A. fib, CAD , HTN, DLP, NIDDM2, Hx of DVT 2014, Ulcerative colitis s/p Ileostomy who presented to the ER with lower abdominal pain, nausea and vomiting for 1 day duration. She was admitted to surgical service for small bowel obstruction hospitals were then called on consultation for management of her medical problems, including worsening kidney function and HTN. Patient was seen and examined at the bedside. Denies any complaints overnight and has been advanced to a soft diet. She is tolerating at this point. She denies any abdominal pain, nausea, vomiting or diarrhea. She continues to have output via ileostomy. Objective: Vitals (See below) General: Lying in bed, no acute distress, comfortable, AAOx3 HEENT: NC, AT, s/p NG tube CVS: RRR, +S1S2 Lungs: Fair air entry b/l, -w/r/r Abdomen: Soft, ND, no abdominal tenderness, + ileostomy Extremities: - Edema, - Calf tenderness Assessment and plan: s/p Small bowel obstruction - Tolerating soft diet. No nausea or vomiting - Physical without any abdominal tenderness - s/p NG tube; s/p Zosyn for 7 days - Diet as per surgery - Managed by surgical team Acute on chronic renal failure - likely 2/2 prerenal etiology - 2/2 poor intake , intrarenal etiology - 2/2 Toradol - Cr baseline noted to be around 1.8 - 2.0; creatinine has improved - Avoid nephrotoxic medications - Will discontinue IV fluid hydration as to diet, has been fully advanced - Dr. Casas / Dr. Avelar (Nephrology) has been consulted; appreciate their input s/p chest pain - Chest pain that occurred on 08/09 AM - EKG was acquired and compared to prior EKG from 2016, no significant changes were noted - Cardiac markers were quiet this morning and have been negative - c/w aspirin 81 Leukocytosis - possibly 2/2 reactive etiology, less likely infectious - Patient denies any cough, shortness of breath or dysuria - Continues to remain afebrile - Leukocytosis remains stable - Urine analysis 08/10, negative for any signs of infection - CT chest 08/11: Small pleural effusions and bibasilar consolidation/ atelectasis (L>R) - XR Sinuses 08/11: Mucosal thickening to the frontal sinuses suggested - s/p Zosyn (Completed 7 day course) - s/p NG tube - c/w incentive spirometry s/p Hypotensive episode - possibly 2/2 medications - Occurred on 08/11 afternoon when she was sitting up in chair and was noted to have light-headedness and a low BP - No further episodes noted Atrial fibrillation - Currently rate controlled - Continue with rate control with bisoprolol - Currently only on aspirin 81 NIDDM2 - c/w insulin sliding scale s/p Lactic acidosis TIA - c/w aspirin 81 CAD - c/w aspirin 81 HTN - Blood pressure remains well controlled - c/w bisoprolol DLP - c/w Pravastatin Hx of DVT Gout - c/w allopurinol Ulcerative colitis s/p Ileostomy - Chronic GI prophylaxis - c/w Protonix DVT prophylaxis - c/w heparin Disposition: - If cleared by physical therapy today will be discharged with outpatient follow -up with surgery and nephrology Chiqui HERNANDEZ, I+O VSChiqui I+O Laboratory Tests 08/14/17 05:29 Red Blood Count 3.27 L, Mean Corpuscular Volume 89.3, Mean Corpuscular Hemoglobin 28.4, Mean Corpuscular Hemoglobin Concent 31.8 L, Red Cell Distribution Width 16.8 H 08/14/17 05:34 Calcium Level 8.5 L Vital Signs Date Time Temp Pulse Resp B/P (MAP) Pulse Ox O2 Delivery O2 Flow Rate FiO2 08/14/17 09:07 60 120/70 08/14/17 08:15 Room Air 08/13/17 14:00 97.0 18 98 I&O- Last 24 Hours up to 6 AM 08/15/17 06:00 Intake Total 360 ml Output Total 125 ml Balance 235 ml HEMANT SKY MD Aug 14, 2017 13:05
[2017-08-14 13:40] LABS: PERCENT SATURATION 14.9 % (13.2-45.0)
--- NOTE | 2017-08-15 15:06 | DSES ---
DATE OF ADMISSION: 08/06/2017 DATE OF DISCHARGE: 08/14/2017 ADMISSION DIAGNOSIS: Small bowel obstruction. DISCHARGE DIAGNOSIS: Small bowel obstruction. HOSPITAL COURSE: The patient is an 87-year-old female with a history of ulcerative colitis status post total colectomy with end ileostomy who presents with nausea, vomiting, abdominal distension and minimal output from her ostomy. She was admitted on 08/06/2017, placed on bowel rest with nasogastric (NG) tube decompression. She progressed fairly well over the next two days and started to have increased output from ostomy. She also started to have acute on chronic renal failure secondary to some dehydration and this was treated with IV fluids. She did not require any dialysis during her stay. IV fluids and electrolyte management was sufficient to improve her renal function. She continued to follow with nephrology throughout her stay here. After the first couple of days, the NG tube was clamped. She tolerated about 8-10 hours. However, then she had some abdominal pain and had to be placed back onto suction. She continued that way for the next couple of days until her ostomy started to produce large volumes of fluid. She had very thick what looks like vegetable matter in her ostomy, so it was thought that this was likely causing a blockage somewhere proximal so she was given a couple suppositories through her ostomy. After which time, she started to produce larger volume of succus and her abdomen got better. She was then able to be weaned off of the NG tube and placed on a diet by 08/13/2017. The NG tube was removed and diet was advanced on 08/14/2017. She was tolerating a regular diet, still having large volumes of output from her ostomy. No nausea or vomiting. No abdominal pains and the plan was to discharge home. She was cleared by physical therapy in the afternoon of 08/14/2017. She was discharged home with regular food. I recommended that she stay away from high fiber foods for awhile. Her obstruction was likely secondary to adhesions since there were no signs of any inflammation on any of her CT scans. I discussed the causes of her obstruction and that if she does start to have symptoms again or needs to be hospitalized again in a short period of time that I would recommend diagnostic laparoscopy on her next visit to go in and take down some of those adhesions. During her hospital stay, she also had a slightly elevated white count around 12-13 that was fairly persistent. The medicine team was monitoring her. They checked a CT scan that did not show any signs of pneumonia. She had slight atelectasis but nothing significant. She never had any problems with fevers, chills, or coughing throughout her stay. No chest pain and no problems with oxygenation. SO even though her white count was still slightly elevated at discharge, the plan was to discharge her home without any antibiotics and have her followup with her primary in one week after hospitalization to have laboratories repeated.
== END 2017-08-14 13:18 | disposition home or self-care (01) | DRG 389 ==
LOC: EDBD 20:48 → M ED 20:48 → M ED INP 08-06 00:38 → M MSPAV 08-06 04:32
PROVIDERS: ADMIT Surgery; ATTEND Surgery
DX: K56.50 Intestinal adhesions [bands], unspecified as to partial versus complete obstruction (principal); N17.9 Acute kidney failure, unspecified; N18.4 Chronic kidney disease, stage 4 (severe); E87.2 Acidosis; I48.91 Unspecified atrial fibrillation; E78.5 Hyperlipidemia, unspecified; I12.9 Hypertensive chronic kidney disease with stage 1 through stage 4 chronic kidney disease, or unspecified chronic kidney disease; E11.22 Type 2 diabetes mellitus with diabetic chronic kidney disease; E86.0 Dehydration; I25.10 Atherosclerotic heart disease of native coronary artery without angina pectoris; R07.9 Chest pain, unspecified; M10.30 Gout due to renal impairment, unspecified site; D63.1 Anemia in chronic kidney disease; I95.9 Hypotension, unspecified; K21.9 Gastro-esophageal reflux disease without esophagitis; M19.90 Unspecified osteoarthritis, unspecified site; E87.6 Hypokalemia; Z86.73 Personal history of transient ischemic attack (TIA), and cerebral infarction without residual deficits; Z86.718 Personal history of other venous thrombosis and embolism; Z90.49 Acquired absence of other specified parts of digestive tract; Z88.5 Allergy status to narcotic agent; Z88.8 Allergy status to other drugs, medicaments and biological substances; Z91.040 Latex allergy status; Z93.2 Ileostomy status; Z79.82 Long term (current) use of aspirin; Z79.899 Other long term (current) drug therapy

== ENCOUNTER 2017-08-17 10:16 | Inpatient (IN) | payer MEDICARE, BC ==
[~2017-08-17] VITALS: Ht 162.6 cm; Wt 73.1 kg
[~2017-08-17 10:16] MED LIST changes: +AMLO5CAP PO; +ASPI81TA21 PO; +TOUJ1.2I SC; +TRAD5TAB PO; +XARE15TA PO
[2017-08-17] MEDS ORDERED: NS 1,000 ML IV ONE ×2 (10:45→13:30)
[2017-08-17 11:09] LABS: BASO % 0.3 % (0.0-1.0); EOS # 0.1 10^3/uL (0.0-0.50); EOS % 0.8 % (0.0-3.0); IMMATURE GRANULOCYTE % 1.8 % (0-0); LYMPH # 1.1 10^3/uL (1.5-4.5); LYMPH % 9.5 % (24.0-44.0); MEAN CORPUSCULAR HEMOGLOBIN 28.5 pg (27.0-33.0); MONO % 8.1 % (0.0-5.0); NEUTROPHILS # 9.6 10^3/uL (1.8-7.7); NEUTROPHILS % 79.5 % (36.0-66.0); PLATELET COUNT, AUTOMATED 642 10^3/uL (150-450); RED CELL DISTRIBUTION WIDTH 17.8 % (11.5-14.5)
[2017-08-17 11:32] LABS: ALBUMIN 3.1 GM/DL (3.2-5.2); ALBUMIN/GLOBULIN RATIO 0.65 (1.00-1.93); ALKALINE PHOSPHATASE 91 U/L (45-117); ALT/SGPT 33 U/L (12-78); ANION GAP 13 MEQ/L (8-16); AST/SGOT 10 U/L (7-37); BILIRUBIN,DIRECT < 0.1 MG/DL (0.0-0.2); BILIRUBIN,TOTAL 0.4 MG/DL (0.2-1.0); BLOOD UREA NITROGEN 50 MG/DL (7-18); CARBON DIOXIDE LEVEL 23 MEQ/L (21-32); CHLORIDE LEVEL 99 MEQ/L (98-107); CREATININE FOR GFR 6.66 MG/DL (0.55-1.02); GLOMERULAR FILTRATION RATE 6.2 (>32); GLUCOSE, FASTING 142 MG/DL (83-110); POTASSIUM SERUM 4.7 MEQ/L (3.5-5.1); SODIUM LEVEL 135 MEQ/L (136-145); TOTAL PROTEIN 7.9 GM/DL (6.4-8.2)
[2017-08-17 13:06] LABS: MICROSCOPIC INDICATED? MAN YES (NO)
[2017-08-17 13:14] LABS: BACTERIA, URINE LARGE AMOUNT; MICROSCOPIC EXAM PERFORMED; RBC, URINE 20-30 /hpf (0-3); SQUAMOUS EPITHELIAL CELL URINE NONE SEEN /hpf (SMALL AMT); WBC, URINE 40-50 /hpf (0-3)
--- NOTE | 2017-08-17 13:17 | REP ---
Urinary tract sonography: History: Decreased urine output. Comparison urinary tract sonography is from December 30, 2013. Comparison is made with recent CT study dated August 05, 2017. CT study is read as showing bilateral intrarenal calculi and multifocal bilateral renal scarring and cysts. Sonographic findings: Scanning at the level of the urinary bladder shows no evidence of abnormality. The bladder is not visualized. The patient was straight catheterized just prior to the study. Renal cortical echogenicity pattern is slightly increased. This is consistent with chronic medical renal disease. Kidneys appear atrophic bilaterally. The right kidney measures 8.0 x 4.3 x 4.4 cm. Left renal dimensions are 8.4 x 4.4 x 4.8 cm. No hydronephrosis is seen on either side. There is a 1.5 x 1.7 x 1.6 cm cyst in the upper pole left kidney and a 2.0 x 2.2 x 2.3 cm cyst is seen at the mid pole level on the left kidney. No mass is seen. Vascular calcification is suspected. The calculi observed on recent CT study cannot be resolved sonographically. Impression: No hydronephrosis seen. Bilateral renal cortical atrophy. Two identifiable cysts on the left. The patient's kidney stones are not visualized on this ultrasound. Signed by Maged Espinoza MD 08/17/2017 04:08 P
[2017-08-17] MEDS ORDERED: NS 500 ML IV ONE (13:30)
[2017-08-17] MEDS ORDERED: CEFTRIAXONE SOD 1 GM in APPROPRIATE DILUENT 1 EA IV ONE (13:30)
[2017-08-17] MEDS ORDERED: DEXTROSE 50% 50 ML SYRINGE IV PRN (14:15)
[2017-08-17] MEDS ORDERED: GLUCOSE 4 GM CHEW TABLET PO PRN (14:15)
[2017-08-17] MEDS ORDERED: GLUCAGON FOR INJ 1 MG VIAL (J1610) SC PRN (14:15)
[2017-08-17 14:38] LABS: HYALINE CAST, URINE NONE SEEN /lpf (0-1)
--- NOTE | 2017-08-17 14:53 | REP ---
CT Head without contrast HISTORY: Fall COMPARISON: 07/11/2016 An area of decreased attenuation is present in the right basal ganglia. This represents an old lacunar infarction. Areas of decreased attenuation are present in the periventricular and subcortical white matter. This represents small-vessel ischemic disease. There is no intraparenchymal hemorrhage, acute infarct, mass or midline shift. The ventricular system and cortical sulci as well as subarachnoid space in the posterior fossa are dilated consistent with mild volume loss. There is no extra cerebral collection. There is no fracture. The visualized sinuses are clear. IMPRESSION: 1. Old right basal ganglia lacunar infarction. 2. Small vessel ischemic disease. 3. Mild volume loss. Signed by Lawson Carrera MD 08/17/2017 02:45 P
[2017-08-17 14:55] LABS: OSMOLALITY SERUM 308 MOSM/KG (280-301)
[2017-08-17] MEDS ORDERED: NS 2,500 ML IV ONE (15:00)
--- NOTE | 2017-08-17 15:01 | HPEPDOC ---
General Date of Admission Aug 17, 2017 at 14:15 Attending Physician: RADHA DAVIS MD Chief Complaint The patient is a 87-year-old female admitted with a reason for visit of Acute Renal Failure. History of Present Illness 87-year-old female with past medical history of chronic kidney disease stage IV , [id number] diabetes mellitus, atrial fibrillation, hypertension, dyslipidemia, left lower extremity DVT, and ulcerative colitis status post total colectomy and end ileostomy who was recently hospitalized here from 08/06- 08/15 for a small bowel obstruction secondary to adhesions presents to the ER with a chief complaint of weakness. Since being discharged in the hospital 3 days ago, the patient states that she has not been eating much food or drinking fluids. She states that her appetite has not been well, and she has at times felt nauseous. The patient's son who is at the bedside, states that the patient' s blood pressure was running low at home (50-60s systolic and 30s/40s diastolic) . Patient has denied any complaints of fevers, chills, cough, production of sputum, chest pain, palpitations, abdominal pain, or any nausea/vomiting/ increased ostomy output. However, the patient did state that she has had some straining upon urination over the last 2 days. She denies any suprapubic pain, or any flank pain. In the ER, the patient was noted to be hypotensive with a SBP in the 80s. In addition, the patient was noted to be in acute renal failure, which is superimposed on her stage IV chronic kidney disease. The patient will be admitted to the hospitalist service, and a consult will be placed to nephrology for further evaluation and management. Home Medications Scheduled (Caltrate 600+D 600-400 mg-Unit) 1 Tab Tab, 1 TAB PO QPM, (Reported) (Amlodipine Besylate/Benaz 5-10 mg) 1 Cap Cap, 1 CAP PO QPM, (Reported) (Toujeo Solostar) 300 Unit/Ml Inj, 32 UNIT SC DAILY, (Reported) Allopurinol (Allopurinol) 100 Mg Tab, 200 MG PO DAILY, (Reported) Aspirin (Aspir-Low) 81 Mg Tab, 81 MG PO DAILY, (Reported) Bisoprolol Fumarate (Bisoprolol Fumarate) 10 Mg Tab, 10 MG PO QAM, (Reported) Cholecalciferol (Vitamin D-3) 1,000 Unit Tab, 2,000 UNIT PO QPM, (Reported) Furosemide (Lasix) 20 Mg Tab, 10 MG PO QAM, (Reported) Linagliptin Base (Tradjenta) 5 Mg Tab, 5 MG PO DAILY, (Reported) Metoclopramide Hcl (Reglan) 5 Mg Tab, 5 MG PO TID, (Reported) takes before meals Multivitamins (Centrum Silver) 1 Tab Tab, 1 TAB PO QPM, (Reported) Pantoprazole Sodium (Pantoprazole Sodium) 40 Mg Tab, 40 MG PO DAILY, (Reported) Pravastatin Sod (Pravastatin Sodium) 40 Mg Tab, 40 MG PO QHS, (Reported) Rivaroxaban (Xarelto) 15 Mg Tab, 15 MG PO DAILY, (Reported) Scheduled PRN Capsaicin (Zostrix Arthritis Pain Re) 0.025 % Cre, 1 DOSE TOP QPM PRN for PAIN, (Reported) BOTH KNEES Ondansetron HCl (Ondansetron HCl) 4 Mg Tab, 4 MG PO Q8H PRN for NAUSEA OR VOMITING, (Reported) Allergies Coded Allergies: Latex (Verified Allergy, Unknown, 12/24/12) Atorvastatin (Verified Adverse Reaction, Intermediate, intolerant, ) Escitalopram (Verified Adverse Reaction, Intermediate, intolerant, ) Risedronate (Verified Adverse Reaction, Intermediate, intolerant, 06/29/15 ) Amlodipine (Verified Adverse Reaction, Mild, DIZZINESS, 06/29/15) Meperidine (Verified Adverse Reaction, Mild, DIZZINESS, 06/29/15) Morphine (Verified Adverse Reaction, Mild, DIZZINESS, 08/17/17) Past Medical History Medical History As noted in HPI Surgical History 1. Status post ileostomy secondary to ulcerative colitis. 2. Status post cholecystectomy. 3. History of bladder suspension in the past. Social History * Smoker: Denies Alcohol: Denies Drugs: denies Lives at home with her son Review of Symptoms Other systems 10 point review of systems negative unless otherwise specified in HPI. Physical Examination General Exam: Positive: Alert, Cooperative, No Acute Distress ENT Exam: Positive: Atraumatic, Negative: Mucous membr. moist/pink (dry mucous membranes) Neck Exam: Negative: JVD Chest Exam: Positive: Clear to auscultation, Normal air movement Heart Exam: Positive: Rate Normal, Normal S1, Normal S2 Abdomen Exam: Positive: Soft, Other (+Ileostomy), Negative: Tenderness Extremity Exam: Negative: Tenderness, Swelling Psych Exam: Positive: Oriented x 3 Vital Signs Vital Signs Date Time Temp Pulse Resp B/P (MAP) Pulse Ox O2 Delivery O2 Flow Rate FiO2 08/17/17 14:47 96.9 88 18 112/59 (76) 96 Room Air Laboratory Data Labs 24H Laboratory Tests 2 08/17/17 11:00: Immature Granulocyte % (Auto) 1.8H, White Blood Count 12.0H, Red Blood Count 3.72L, Hemoglobin 10.6L, Hematocrit 33.1L, Mean Corpuscular Volume 89.0, Mean Corpuscular Hemoglobin 28.5, Mean Corpuscular Hemoglobin Concent 32.0, Red Cell Distribution Width 17.8H, Platelet Count 642H, Neutrophils (%) (Auto) 79.5H, Lymphocytes (%) (Auto) 9.5L, Monocytes (%) (Auto) 8.1H, Eosinophils (%) (Auto) 0.8, Basophils (%) (Auto) 0.3, Neutrophils # (Auto) 9.6H, Lymphocytes # (Auto) 1.1L, Monocytes # (Auto) 1.0H, Eosinophils # (Auto) 0.1, Basophils # (Auto) 0.0 , Immature Granulocyte # (Auto) 0.2H, Nucleated Red Blood Cells % (auto) 0.0, Anion Gap 13, Glomerular Filtration Rate 6.2L, Osmolality 308H, Calcium Level 10.0, Aspartate Amino Transf (AST/SGOT) 10, Alanine Aminotransferase (ALT/SGPT) 33, Alkaline Phosphatase 91, Total Bilirubin 0.4, Direct Bilirubin < 0.1, Total Protein 7.9, Albumin 3.1L, Albumin/Globulin Ratio 0.65L 08/17/17 11:01: Lactic Acid Level 2.6*H 08/17/17 12:54: Bedside Urine Color (LAB) DK YELLOW, Bedside Urine Appearance (LAB) CLOUDYH, Bedside Urine pH (LAB) 5.0, Bedside Urine Specific [place] (LAB 1.020, Bedside Urine Protein (LAB) 2+H, Bedside Urine Glucose (UA) NEGATIVE, Bedside Urine Ketones (LAB) NEGATIVE, Bedside Urine Blood POSITIVEH, Bedside Urine Nitrite ( LAB) NEGATIVE, Bedside Urine Bilirubin (LAB) NEGATIVE, Bedside Urine Urobilinogen (LAB) NORMAL, Bedside Urine Leukocyte Esterase (L POSITIVEH, Urine WBC 40-50, Urine RBC 20-30H, Urine Squamous Epithelial Cells NONE SEEN, Urine Bacteria LARGE AMOUNTH, Urine Hyaline Casts NONE SEEN, Urine Yeast LARGE AMOUNTH , Urine Sediment Examination PERFORMED, Urine Random Osmolality 309L, Urine Random Creatinine 297.0, Urine Random Total Protein 224.5H, Urine Random Sodium 20 CBC/BMP Laboratory Tests 08/17/17 11:00 Red Blood Count 3.72 L, Mean Corpuscular Volume 89.0, Mean Corpuscular Hemoglobin 28.5, Mean Corpuscular Hemoglobin Concent 32.0, Red Cell Distribution Width 17.8 H, Neutrophils (%) (Auto) 79.5 H, Lymphocytes (%) (Auto ) 9.5 L, Monocytes (%) (Auto) 8.1 H, Eosinophils (%) (Auto) 0.8, Basophils (%) ( Auto) 0.3, Neutrophils # (Auto) 9.6 H, Lymphocytes # (Auto) 1.1 L, Monocytes # ( Auto) 1.0 H, Eosinophils # (Auto) 0.1, Basophils # (Auto) 0.0 Microbiology Microbiology 08/17/17 Blood Culture, Received Pending 08/17/17 Blood Culture, Received Pending Plan / VTE VTE Prophylaxis Ordered?: Yes Plan Plan Acute Renal Failure Superimposed on CKD Stage IV Likely 2/2 Hypotension from, UTI---Will obtain CT of the Abd/Pel given the patient's recent admission for SBO IVF Hydration ordered Renal U/S Urine Lytes ordered We will cont to monitor I/O's Nephro consulted Urinary Tract Infection Patient with symptoms of dysuria, UA suggestive of UTI We will treat the patient with Rocephin Urine Cultures pending Recent Small Bowel Obstruction We will repeat a CT of the Abd/Pel here Cont Full Liquid diet Leukocytosis 2/2 above We will cont to monitor Lactic Acidosis 2/2 Hypotension, UTI IVF Hydration ordered We will repeat LA Level Ulcerative Colitis s/p Total Colectomy and End Ileostomy in the past Diabetes Mellitus Basal Insulin dose decreased due to decreased PO Intake ISS for additional coverage Atrial Fibrillation Rate controlled--will hold off on Bisoprolol due to hypotension On Xarelto for AC Hx of LLE DVT Cont Xarelto HTN Will hold antihypertensives for now given low B/P in the ER Dyslipidemia Cont Statin GERD Cont PPI DVT Prophylaxis Already on Xarelto The patient will be admitted under the service of Dr. Davis, who will begin to follow the patient on 08/18/17 @ 7am. KRYSTAL KRAUSE MD Aug 17, 2017 15:01
[2017-08-17] MEDS ORDERED: GASTROGRAFIN SOLUTION 30ML (Q9963) As Ordered ONE (15:12)
[2017-08-17] MEDS ORDERED: GASTROGRAFIN SOLUTION 30ML PO ONE (15:15)
[2017-08-17 15:30] VITALS: BP 106/59
[2017-08-17] MEDS ORDERED: GASTROGRAFIN SOLUTION 30ML (Q9963) PO ONE (15:45)
[2017-08-17] MEDS: HumaLOG INSULIN (NovoLOG) PER UNIT SC SCH ×2 (17:30→21:00)
--- NOTE | 2017-08-17 17:35 | REP ---
Clinical: Abdominal pain with history of small bowel obstruction. Technique: Axial images from the lung bases to the pubic symphysis using oral contrast (per protocol) with coronal and sagittal re-formations. Comparison: 08/05/2017. Findings: Lung bases demonstrate chronic fibro atelectatic changes. Liver, spleen, pancreas, and bilateral adrenal glands are normal / stable. The patient is status post cholecystectomy. The kidneys demonstrate stable cortical atrophic changes, bilateral nonobstructing renal calculi and rounded simple and presumed complex cysts unchanged from prior examination. No perinephric stranding or hydronephrosis. The patient is status post colectomy with ileostomy via the right anterior abdominal wall. Current examination is without evidence for bowel obstruction. No free air. No free fluid or ascites. Pelvis demonstrates normal bladder and age-appropriate uterus/adnexa. Small fat containing left inguinal hernia identified. No significant adenopathy. Atherosclerotic changes to the vasculature noted. Musculoskeletal structures demonstrate degenerative changes. Impression: 1. No evidence for bowel obstruction or acute enteric process identified. 2. No acute abdominopelvic process. No ascites. No adenopathy. No free air. 3. Chronic stable changes as described above including bilateral renal calculi and simple and presumed complex cysts. 4. Bibasilar fibroatelectatic changes. Signed by Jamie Moore MD 08/17/2017 05:27 P
[2017-08-17 20:00] VITALS: BP 94/62
[2017-08-17] MEDS: ONDANSETRON 4MG/2ML VIAL (J2405) IV PRN (21:22)
[2017-08-17] MEDS: PRAVASTATIN 20 MG TAB PO SCH (21:24)
[2017-08-17] MEDS: MULTIVITAMINS/MINERALS THERAP 1 TAB PO SCH (21:24)
[2017-08-17] MEDS: VITAMIN D 1,000 INTERNATIONAL UNITS TABLET PO SCH (21:24)
[2017-08-17 22:00] VITALS: BP 94/62
[2017-08-17] MEDS ORDERED: ANALGESIC BALM CRM 120 GM TOP PRN (23:30)
[2017-08-18 02:00] VITALS: BP 96/62
[2017-08-18 06:00] VITALS: BP_SYST 110; BP_SYST 170; BP_DIAS 71; BP_DIAS 72
[2017-08-18 06:11] LABS: MEAN CORPUSCULAR HEMOGLOBIN 28.5 pg (27.0-33.0); MEAN CORPUSCULAR HGB CONC 31.9 g/dl (32.0-36.5); MEAN CORPUSCULAR VOLUME 89.3 fl (80.0-96.0); PLATELET COUNT, AUTOMATED 609 10^3/uL (150-450); RED CELL DISTRIBUTION WIDTH 17.7 % (11.5-14.5); WHITE BLOOD COUNT 8.8 10^3/uL (4.0-10.0)
[2017-08-18 06:30] LABS: ALBUMIN 2.5 GM/DL (3.2-5.2); ALBUMIN/GLOBULIN RATIO 0.6 (1.00-1.93); BILIRUBIN,TOTAL 0.3 MG/DL (0.2-1.0); CALCIUM LEVEL 8.3 MG/DL (8.8-10.2); CREATININE FOR GFR 5.94 MG/DL (0.55-1.02); GLOMERULAR FILTRATION RATE 7.1 (>32); POTASSIUM SERUM 4.3 MEQ/L (3.5-5.1); TOTAL PROTEIN 6.7 GM/DL (6.4-8.2)
[2017-08-18] MEDS: HumaLOG INSULIN (NovoLOG) PER UNIT SC SCH ×4 (07:30→20:43)
[2017-08-18] MEDS: LEVEMIR (INSULIN DETEMIR) 1 UNITS/0.01ML SC SCH (09:00)
--- NOTE | 2017-08-18 09:14 | ECGEPIP ---
Stationary ECG Study [facility] - ED Test Date: 2017-08-17 Pat Name: JORDANA BANUELOS Department: Room: - Gender: F C S S Representative: : [id number] Requested By: SOLANGE Pritchard Order Number: [id number] Reading MD: Reyes Cash Measurements Intervals [place] Rate: 94 P: [place]: 0 QRS: 7 QRSD: 80 T: -12 QT: 361 QTc: 453 Interpretive Statements SINUS RHYTHM WITH PACs NSTTW ABNORMALITIES SIMILAR TO 08/09/17 Electronically Signed On 08-18-2017 9:13:45 EST by Reyes Cash
[2017-08-18 10:00] VITALS: BP 123/72
[2017-08-18] MEDS: ASPIRIN 81 MG ENTERIC TAB PO SCH (10:19)
[2017-08-18] MEDS: RIVAROXABAN 15 MG TAB (XARELTO) PO SCH (10:19)
--- NOTE | 2017-08-18 11:12 | IPN ---
DATE OF SERVICE: 08/18/2017 Patient seen and examined at the bedside. Chart has been reviewed. Patient has no complaints this morning. Denies dysuria, urgency, frequency, fever or chills, flank pain. No nausea or vomiting. Complains of generalized weakness and decrease in appetite. Patient's glucose this morning is 76, insulin has been held. Vitals: Temperature 97.3, pulse 87, respiratory rate 18, blood pressure 110/71, 97% on room air. Input is 3350, output 2025, positive 1325. Current weight is 73.1 kg. Generally, patient is awake, alert, oriented to person. Answers questions appropriately. No use of respiratory accessory muscles. No facial asymmetry. Tongue is midline. Lungs: Clear to auscultation. No wheezing, rales or rhonchi. Heart: S1, S2. Irregularly irregular. Abdomen: Soft, nontender, nondistended, positive bowel sounds. Positive ileostomy. Extremities: No cyanosis or clubbing. LABORATORY DATA: White count 8.8, hemoglobin 9.6, hematocrit 30, platelet count 609. Sodium 140, potassium 4.2, chloride 110, bicarbonate 19, BUN 40, creatine 7.1, glucose 72, lactic acid 0.8. ASSESSMENT AND PLAN: This is an 87-year-old female with history of chronic kidney disease stage IV, non-insulin dependent diabetes, atrial fibrillation, hypertension, dyslipidemia, left lower extremity deep venous thrombosis (DVT), ulcerative colitis status post total colectomy ileostomy recently hospitalized for bowel obstruction secondary to adhesions, presented to the emergency room with weakness, was found to have acute on chronic renal failure, possible urinary tract infection (UTI), she was hypertensive, systolic pressure 80s which improved with intravenous fluid. Nephrology has been consulted for management. CURRENT ISSUES: 1. Acute renal failure superimposed on chronic kidney disease stage IV. CT abdomen and pelvis is negative for small bowel obstruction. Patient did have an episode of hypotension which has resolved without IV fluid hydration. Urine electrolytes have been ordered. Patient is on ceftriaxone. 2. Dysuria with yeast in the urine culture, currently on Rocephin. Once finalized, will discontinue IV antibiotics due to risk of Clostridium difficile. 3. Status post small bowel obstruction. Negative CT abdomen and pelvis yesterday. Continue on full liquid diet. 4. Leukocytosis secondary to possible urinary tract infection. Patient normalized with ceftriaxone. 5. Lactic acidosis due to hypotension and urinary tract infection, resolved. 6. Ulcerative colitis status post total colectomy and ileostomy, resolved. 7. Type 2 diabetes. Hypoglycemia due to decreased appetite. Hold off on insulin for glucose less than 100. 8. Atrial fibrillation rate controlled due to hypotension, bisoprolol has been held. Chronically on Xarelto. 9. History of left lower extremity deep venous thrombosis (DVT). Continue on Xarelto. 10. Hypertension, oral hypertensive medications have been held due to low blood pressure. 11. Dyslipidemia, on statin. 12. Reflux on proton pump inhibitor (PPI).
--- NOTE | 2017-08-18 12:39 | CR ---
DATE OF CONSULTATION: 08/18/2017 REASON FOR CONSULTATION: Acute renal failure. HISTORY OF PRESENT ILLNESS: Mrs. Roman is an 87-year-old female who was discharged from [facility] just a few days ago. She has a known history of stage IV of chronic kidney disease, non-insulin dependent diabetes, atrial fibrillation, hypertension, dyslipidemia and lower extremity DVT. She had a colectomy due to ulcerative colitis and has an ileostomy with high output. She was admitted yesterday through the emergency room due to acute renal failure. Her BUN was found to be about 100 and creatinine 6. Her blood pressure has been low at home for the last few days. The patient reports adequate oral intake. However, she had high output from her ileostomy. PAST MEDICAL AND SURGICAL HISTORY: Significant for: 1. Type 2 diabetes. 2. Hypertension. 3. Atrial fibrillation. 4. Dyslipidemia. 5. Prior history of lower extremity DVT. 6. History of stage IV chronic kidney disease. 7. Recent acute renal failure. 8. History of ulcerative colitis, status post total colectomy and ileostomy. 9. History of gout. MEDICATIONS: Her home medications included calcium with vitamin D 600 mg daily, amlodipine with benazepril 5/10 mg daily, Toujeo insulin 32 units daily, allopurinol 100 mg two tablets daily, aspirin 81 mg daily, bisoprolol 10 mg daily, vitamin D 1000 units two tablets daily, furosemide 10 mg daily, Tradjenta 5 mg daily, Reglan 5 mg three times a day, multivitamin 1 tablet daily, Protonix 40 mg daily, pravastatin 40 mg daily and Xarelto 15 mg daily. ALLERGIES: The patient has multiple allergies including MORPHINE, MECLIZINE, RISPERDAL, ATORVASTATIN and CITALOPRAM. PAST SURGICAL HISTORY: Her past surgical history is significant for total colectomy and ileostomy. Status post cholecystectomy and bladder suspension in the past. PERSONAL AND SOCIAL HISTORY: The patient has no history of smoking, alcohol or drug use. She lives at home with her son. REVIEW OF SYSTEMS: The patient denies any fever or chills. Ears, nose and throat are unremarkable. She denies any headache but has been feeling dizzy and lightheaded. Her home blood pressures were in 70s and 80s and her son has been keeping record. Cardiovascular system is significant for hypertension. She denies any dyspnea or chest pain. Respiratory system negative for cough or hemoptysis. GI system is negative for vomiting or abdominal pain. She had small bowel obstruction during her recent admission. Now she has significant output from her ileostomy. Endocrine system is significant for type 2 diabetes, secondary hyperparathyroidism and hyperlipidemia. Musculoskeletal system is significant for a history of gout generalized weakness. Hematological system is significant for chronic anticoagulation. She denies any bleeding from her ileostomy. Psychosocial system is negative for depression or anxiety. PHYSICAL EXAMINATION: The patient is awake and alert lying in the bed. Temperature 97.3 degrees Fahrenheit, heart rate 87 per minute and respiratory rate 18 per minute. Blood pressure 94/60 mmHg up to 110/70 mmHg. Oxygen saturation is 97% on room air. Head: Is atraumatic. Pupils equal and reactive to light and sclera is anicteric. Ears, nose and throat are unremarkable. She has no oral thrush or ulcers. Heart: Sounds are irregular in rhythm. Lungs with diminished breath sounds at bases. There is no wheezing or rales. Abdomen is soft and ileostomy is functioning in her right lower quadrant. She has greenish liquid stools. Extremities have no cyanosis or clubbing. Musculoskeletal system shows large tophi on her toes. There is no leg edema. Neurological system is negative for any acute focal deficit. She is awake, alert and oriented times three. LABORATORY DATA: Sodium 135 and potassium 4.7. BUN 50 and creatinine 6.66 on admission. Lactic acid level was 2.6 and calcium 10.0. Today her sodium is 140 and potassium 4.3. BUN 48 and creatinine 5.94. Calcium level is 8.3. Urinalysis showed cloudy appearance with positive blood and leukocyte esterase. She had 40-[address] scan of abdomen and pelvis, which did not show any evidence of bowel obstruction. She had bilateral renal calculi and simple cysts. PROBLEMS: 1. Acute renal failure superimposed on chronic kidney disease. Most likely the patient got dehydrated and hypotensive. Her blood pressure records from home certainly showed low blood pressure in 70s and 80s. She had high output ileostomy and may have decreased oral intake. So far she has received more than 2 liters of normal saline. I will continue IV normal saline at 100 per hour. Renal function will be checked again tomorrow morning. 2. Dehydration. Most likely related to high output ileostomy and decreased oral intake. The patient is being encouraged to increase her oral fluid intake. We will continue with IV fluid normal saline at 100 per hour for now. 3. Gout: The patient has tophaceous gout. Uric acid level is being ordered today. We will adjust the dose as needed. 4. Anemia: Her anemia is mild and does not need any intervention at this point. I thank you for involving me in the care of Mrs. Roman. We will follow her along with you.
[2017-08-18 13:04] LABS: URIC ACID 10.5 MG/DL (2.6-6.0)
[2017-08-18 14:00] VITALS: BP 138/77
[2017-08-18] MEDS ORDERED: CEFTRIAXONE SOD 1 GM in APPROPRIATE DILUENT 1 EA IV SCH ×4 (14:00)
[2017-08-18] MEDS: KCL 20MEQ in NS 1000ML 1,000 ML IV SCH (14:04)
[2017-08-18 18:00] VITALS: BP 129/75
[2017-08-18] MEDS: ALLOPURINOL 100 MG TAB PO SCH (18:26)
[2017-08-18] MEDS: ONDANSETRON 4MG/2ML VIAL (J2405) IV PRN (18:26)
[2017-08-18] MEDS: VITAMIN D 1,000 INTERNATIONAL UNITS TABLET PO SCH (20:44)
[2017-08-18] MEDS: PANTOPRAZOLE 40MG TAB (PROTONIX) PO SCH (20:44)
[2017-08-18] MEDS: PRAVASTATIN 20 MG TAB PO SCH (20:44)
[2017-08-18] MEDS: MULTIVITAMINS/MINERALS THERAP 1 TAB PO SCH (20:44)
[2017-08-18 22:00] VITALS: BP 103/60
[2017-08-19] MEDS: KCL 20MEQ in NS 1000ML 1,000 ML IV SCH ×2 (00:59→08:36)
[2017-08-19 02:00] VITALS: BP 104/64
[2017-08-19 05:36] LABS: MEAN CORPUSCULAR HEMOGLOBIN 28.6 pg (27.0-33.0); MEAN CORPUSCULAR HGB CONC 31.9 g/dl (32.0-36.5); MEAN CORPUSCULAR VOLUME 89.8 fl (80.0-96.0); PLATELET COUNT, AUTOMATED 645 10^3/uL (150-450); RED CELL DISTRIBUTION WIDTH 17.8 % (11.5-14.5); WHITE BLOOD COUNT 10.6 10^3/uL (4.0-10.0)
[2017-08-19 05:55] LABS: ALBUMIN 2.5 GM/DL (3.2-5.2); ALBUMIN/GLOBULIN RATIO 0.6 (1.00-1.93); BILIRUBIN,TOTAL 0.2 MG/DL (0.2-1.0); CALCIUM LEVEL 8.6 MG/DL (8.8-10.2); CREATININE FOR GFR 4.5 MG/DL (0.55-1.02); GLOMERULAR FILTRATION RATE 9.8 (>32); POTASSIUM SERUM 4.7 MEQ/L (3.5-5.1); TOTAL PROTEIN 6.7 GM/DL (6.4-8.2)
[2017-08-19 06:00] VITALS: BP 133/60
[2017-08-19] MEDS: HumaLOG INSULIN (NovoLOG) PER UNIT SC SCH ×4 (07:30→20:32)
[2017-08-19] MEDS: ALLOPURINOL 100 MG TAB PO SCH (08:37)
[2017-08-19] MEDS: RIVAROXABAN 15 MG TAB (XARELTO) PO SCH (08:37)
[2017-08-19] MEDS: ASPIRIN 81 MG ENTERIC TAB PO SCH (08:37)
[2017-08-19] MEDS: LEVEMIR (INSULIN DETEMIR) 1 UNITS/0.01ML SC SCH (08:38)
--- NOTE | 2017-08-19 09:26 | IPNPDOC ---
Date Seen The patient was seen on 08/19/17. Progress Note SUBJECTIVE:Patient seen and examined at the bedside. Chart has been reviewed. Patient has no complaints this morning. Denies dysuria, urgency, frequency, fever or chills , flank pain. No nausea or vomiting. Complains of generalized weakness and decrease in appetite. Vitals: stable Generally, patient is awake, alert, oriented to person. Answers questions appropriately. No use of respiratory accessory muscles. No facial asymmetry. Tongue is midline. Lungs: Clear to auscultation. No wheezing, rales or rhonchi. Heart: S1, S2. Irregularly irregular. Abdomen: Soft, nontender, nondistended, positive bowel sounds. Positive ileostomy. Extremities: No cyanosis or clubbing. LABORATORY DATA: reviewed ASSESSMENT AND PLAN: This is an 87-year-old female with history of chronic kidney disease stage IV, non-insulin dependent diabetes, atrial fibrillation, hypertension, dyslipidemia, left lower extremity deep venous thrombosis (DVT), ulcerative colitis status post total colectomy ileostomy recently hospitalized for bowel obstruction secondary to adhesions, presented to the emergency room with weakness, was found to have acute on chronic renal failure, possible urinary tract infection (UTI), she was hypertensive, systolic pressure 80s which improved with intravenous fluid. Nephrology has been consulted for management. CURRENT ISSUES: 1. Acute renal failure superimposed on chronic kidney disease stage IV. CT abdomen and pelvis is negative for small bowel obstruction. Patient did have an episode of hypotension which has resolved without IV fluid hydration. Urine electrolytes have been ordered. Patient is on ceftriaxone. 2. Dysuria with yeast in the urine culture, currently on Rocephin. Once finalized, will discontinue IV antibiotics due to risk of Clostridium difficile. 3. Status post small bowel obstruction. Negative CT abdomen and pelvis yesterday. Continue on full liquid diet. 4. Leukocytosis secondary to possible urinary tract infection. Patient normalized with ceftriaxone. 5. Lactic acidosis due to hypotension and urinary tract infection, resolved. 6. Ulcerative colitis status post total colectomy and ileostomy, resolved. 7. Type 2 diabetes. Hypoglycemia due to decreased appetite. Hold off on insulin for glucose less than 100. 8. Atrial fibrillation rate controlled due to hypotension, bisoprolol has been held. Chronically on Xarelto. 9. History of left lower extremity deep venous thrombosis (DVT). Continue on Xarelto. 10. Hypertension, oral hypertensive medications have been held due to low blood pressure. 11. Dyslipidemia, on statin. 12. Reflux on proton pump inhibitor (PPI). VS, I&O, 24H, Fishbone Vital Signs/I&O Vital Signs Date Time Temp Pulse Resp B/P (MAP) Pulse Ox O2 Delivery O2 Flow Rate FiO2 08/19/17 06:00 97.5 93 18 133/60 (84) 96 Room Air I&O- Last 24 Hours up to 6 AM 08/20/17 06:00 Intake Total 580 ml Output Total 175 ml Balance 405 ml Laboratory Data 24H LABS Laboratory Tests 2 08/18/17 18:33: Bedside Glucose (Misc Panel) 151H 08/18/17 18:41: Total Creatine Kinase 40, Creatine Kinase MB 1.6, Creatine Kinase MB Relative Index 4.00, Troponin I < 0.02 08/19/17 05:12: Nucleated Red Blood Cells % (auto) 0.0, Anion Gap 10, Glomerular Filtration Rate 9.8L, Blood Urea Nitrogen 46H, Creatinine 4.50H, Sodium Level 141, Potassium Level 4.7, Chloride Level 114H, Carbon Dioxide Level 17L, Calcium Level 8.6L, Aspartate Amino Transf (AST/SGOT) 7, Alanine Aminotransferase (ALT/ SGPT) 19, Alkaline Phosphatase 74, Total Bilirubin 0.2, Total Protein 6.7, Albumin 2.5L, Magnesium Level 2.0, Albumin/Globulin Ratio 0.60L CBC/BMP Laboratory Tests 08/19/17 05:12 Red Blood Count 3.32 L, Mean Corpuscular Volume 89.8, Mean Corpuscular Hemoglobin 28.6, Mean Corpuscular Hemoglobin Concent 31.9 L, Red Cell Distribution Width 17.8 H, Calcium Level 8.6 L, Aspartate Amino Transf (AST/SGOT ) 7, Alanine Aminotransferase (ALT/SGPT) 19, Alkaline Phosphatase 74, Total Bilirubin 0.2, Total Protein 6.7, Albumin 2.5 L Microbiology Microbiology 08/17/17 Blood Culture - Preliminary, Resulted No growth after 24 hours . All specim... 08/17/17 Blood Culture - Preliminary, Resulted No growth after 24 hours . All specim... 08/17/17 Urine Culture - Final, Complete Yeast Like Organism RADHA MENDOZA MD Aug 19, 2017 07:13
[2017-08-19 10:00] VITALS: BP 105/73
[2017-08-19] MEDS: NS 0.45% IV SCH ×2 (13:19→21:13)
[2017-08-19] MEDS: SODIUM BICARBONATE IV SCH ×2 (13:19→21:13)
[2017-08-19 14:00] VITALS: BP 116/58
[2017-08-19 18:00] VITALS: BP 128/69
--- NOTE | 2017-08-19 18:17 | IPN ---
DATE: 08/19/2017 SUBJECTIVE: The patient is seen this morning at the bedside. Her son is present. She reports her appetite is good, and she feels well. She states she has made more urine than what has been recorded. She denies any shortness of breath, chest pain, or palpitations. She continues to have generalized weakness. Her ostomy output remains high. VITAL SIGNS: Temperature 97.5, pulse 93, respiratory rate 18, blood pressure 133/60, saturating 96% on room air. Intake and output: Oral intake yesterday 1200 mL, intravenous (IV) fluid 700 mL. Urine output yesterday 100 mL, ostomy output 1325. There is emesis recorded of 400 mL, but the patient denies any nausea or vomiting to me. Her weight is not recorded today. GENERAL: The patient is seen at the bedside. Her son is present. She is awake, alert, oriented to person and place, and conversational. HEAD AND NECK: Extraocular muscles are intact. The oral mucosa is moist. CARDIAC: S1, S2, irregular. Radial pulse 2+. There is no peripheral or dependent edema. LUNGS: She is seen comfortable on room air with use of accessory muscles. Breath sounds are clear throughout but diminished at base. ABDOMEN: Soft, nontender. There is a right lower quadrant ostomy with greenish liquid stool and gas in bag. EXTREMITIES: No edema or cyanosis. MUSCULOSKELETAL: Tophi noted on the digits. NEUROLOGIC: She is appropriately interactive, conversational, and oriented to person, place, situation. PSYCHIATRIC: Appropriate mood and affect. SKIN: Warm with normal turgor. GENITOURINARY: There is no suprapubic fullness. LABORATORY DATA: White count 10.6, hemoglobin 9.5, platelets 645. Sodium 141, potassium 4.7, bicarbonate 17, BUN 46, creatinine 4.5, glucose 84, corrected calcium 9.8, magnesium 2.0. Normal AST and ALT. INPATIENT MEDICATIONS: I have switched the patient intravenous (IV) fluids to half normal saline (NS) with 25 mEq of sodium bicarbonate at an increased rate of 125 mL an hour. She is started on allopurinol 200 mg by mouth daily. Her insulin was adjusted per the primary team. In view of patient's renal failure, I have held her Xarelto. PROBLEMS: 1. Acute kidney injury (ERNA) on chronic kidney disease (CKD), stage IV. Patient's baseline creatinine is in the low 2's. Her acute kidney injury is likely secondary to dehydration, hypotension, and complicated by high-output ileostomy. She has been in equivalent fluid balance the past 24 hours. She is making urine, and her BUN and creatinine are improving from prior. I have increased her IV fluid rate to 125 mL an hour and changed the fluid to half NS with 25 mEq of bicarbonate. Renal function will be checked again in the morning. I have encouraged her for oral intake. 2. Atrial fibrillation. The patient is currently rate controlled without use of her home bisoprolol. In view of the acute renal failure, I will hold her Xarelto at present, and once her GFR improves to greater than 15 mL per minute, we will plan to resume anticoagulation. 3. Hypotension. The patient's blood pressure is currently satisfactory, and I would continue to hold her home antihypertensives and diuretics at this time. 4. Hyperuricemia with tophaceous gout. The patient is resumed on allopurinol. Uric acid was 10.5, likely due to dehydration and acute kidney injury. I suspect with improvement in her renal function and with improvement in her volume status, her uric acid should come down. 5. Diet. Patient is requesting to be transitioned to solid foods, and I will reach out to the hospitalist regarding the same. Plan of care is discussed with Dr. Davis.
[2017-08-19] MEDS: MULTIVITAMINS/MINERALS THERAP 1 TAB PO SCH (21:13)
[2017-08-19] MEDS: PANTOPRAZOLE 40MG TAB (PROTONIX) PO SCH (21:13)
[2017-08-19] MEDS: PRAVASTATIN 20 MG TAB PO SCH (21:13)
[2017-08-19] MEDS: VITAMIN D 1,000 INTERNATIONAL UNITS TABLET PO SCH (21:13)
[2017-08-19 22:00] VITALS: BP 126/64
[2017-08-20 02:00] VITALS: BP 122/63
[2017-08-20] MEDS: NS 0.45% IV SCH (05:52)
[2017-08-20] MEDS: SODIUM BICARBONATE IV SCH (05:52)
[2017-08-20 06:00] VITALS: BP 140/80
[2017-08-20 06:10] LABS: MEAN CORPUSCULAR HEMOGLOBIN 28.8 pg (27.0-33.0); MEAN CORPUSCULAR HGB CONC 31.7 g/dl (32.0-36.5); MEAN CORPUSCULAR VOLUME 90.8 fl (80.0-96.0); PLATELET COUNT, AUTOMATED 596 10^3/uL (150-450); RED CELL DISTRIBUTION WIDTH 18.1 % (11.5-14.5); WHITE BLOOD COUNT 9.1 10^3/uL (4.0-10.0)
[2017-08-20 06:33] LABS: ALBUMIN 2.4 GM/DL (3.2-5.2); ALBUMIN/GLOBULIN RATIO 0.62 (1.00-1.93); BILIRUBIN,TOTAL 0.2 MG/DL (0.2-1.0); CALCIUM LEVEL 7.8 MG/DL (8.8-10.2); CREATININE FOR GFR 2.95 MG/DL (0.55-1.02); GLOMERULAR FILTRATION RATE 15.9 (>32); MAGNESIUM LEVEL 1.5 MG/DL (1.8-2.4); POTASSIUM SERUM 4.6 MEQ/L (3.5-5.1); TOTAL PROTEIN 6.3 GM/DL (6.4-8.2)
[2017-08-20] MEDS: HumaLOG INSULIN (NovoLOG) PER UNIT SC SCH ×4 (07:30→20:41)
--- NOTE | 2017-08-20 08:03 | IPNPDOC ---
Date Seen The patient was seen on 08/20/17. Progress Note SUBJECTIVE: Patient seen and examined at the bedside. Chart has been reviewed. Patient has no complaints this morning. Denies dysuria, urgency, frequency, fever or chills , flank pain. No nausea or vomiting. Complains of generalized weakness and decrease in appetite. Per nursing, patient has been having difficulty with extending her fingers and uses the other hand to open up the other fingers on the opposite hand. She states that it has been this way for several years, and is not out of the ordinary for her. Vitals: stable Generally, patient is awake, alert, oriented to person. Answers questions appropriately. No use of respiratory accessory muscles. No facial asymmetry. Tongue is midline. Lungs: Clear to auscultation. No wheezing, rales or rhonchi. Heart: S1, S2. Irregularly irregular. Abdomen: Soft, nontender, nondistended, positive bowel sounds. Positive ileostomy. Extremities: No cyanosis or clubbing. LABORATORY DATA: reviewed ASSESSMENT AND PLAN: This is an 87-year-old female with history of chronic kidney disease stage IV, non-insulin dependent diabetes, atrial fibrillation, hypertension, dyslipidemia, left lower extremity deep venous thrombosis (DVT), ulcerative colitis status post total colectomy ileostomy recently hospitalized for bowel obstruction secondary to adhesions, presented to the emergency room with weakness, was found to have acute on chronic renal failure, possible urinary tract infection (UTI), she was hypertensive, systolic pressure 80s which improved with intravenous fluid. Nephrology has been consulted for management. CURRENT ISSUES: 1. Acute renal failure superimposed on chronic kidney disease stage IV due to dehydration, high ostomy output, and CTabdomen and pelvis is negative for small bowel obstruction. Patient did have an episode of hypotension which has resolved. Intravenous fluid trial by nephrology. monitor i/o. daily weights. Avoid nephrotoxins and renally dose all medications. 2. Dysuria with yeast in the urine culture. s/p rocephin which has been discontinued due to negative urine culture for bacteria. 3. Status post small bowel obstruction. Negative CT abdomen and pelvis yesterday. Continue on full liquid diet. 4. Leukocytosis secondary to possible urinary tract infection. Patient normalized with ceftriaxone. 5. Lactic acidosis due to hypotension and urinary tract infection, resolved. 6. Ulcerative colitis status post total colectomy and ileostomy, resolved. 7. Type 2 diabetes. Hypoglycemia due to decreased appetite. Hold off on insulin for glucose less than 100. 8. Atrial fibrillation rate controlled due to hypotension, bisoprolol has been held. Chronically on Xarelto. 9. History of left lower extremity deep venous thrombosis (DVT). Continue on Xarelto. 10. Hypertension, oral hypertensive medications have been held due to low blood pressure. 11. Dyslipidemia, on statin. 12. Reflux on proton pump inhibitor (PPI). 13. Hypomagnesemia: supplement with mag run 14. 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 avoid nsaids in light of renal failure. acetaminophen PRN pain. DISPOSITION: consult occupational therapy and physical therapy ., VS, I&O, 24H, Fishbone Vital Signs/I&O Vital Signs Date Time Temp Pulse Resp B/P (MAP) Pulse Ox O2 Delivery O2 Flow Rate FiO2 08/20/17 02:00 99.2 81 17 122/63 (82) 96 Room Air Laboratory Data Microbiology Microbiology 08/17/17 Blood Culture - Preliminary, Resulted No Growth after 48 hours. All Specime... 08/17/17 Blood Culture - Preliminary, Resulted No Growth after 48 hours. All Specime... 08/17/17 Urine Culture - Final, Complete Yeast Like Organism RADHA MENDOZA MD Aug 20, 2017 05:47
[2017-08-20] MEDS ORDERED: MAG SULF 1GM/100ML (MAG RUN) 1 GM in APPROPRIATE DILUENT 1 EA IV ONE (08:15)
[2017-08-20] MEDS: LEVEMIR (INSULIN DETEMIR) 1 UNITS/0.01ML SC SCH (09:00)
[2017-08-20] MEDS: ALLOPURINOL 100 MG TAB PO SCH (10:48)
[2017-08-20] MEDS: ASPIRIN 81 MG ENTERIC TAB PO SCH (10:48)
[2017-08-20] MEDS: NYSTATIN 100,000 UNITS/GM TOPICAL PWD 15 GM TOP SCH ×2 (10:58→20:51)
[2017-08-20 14:00] VITALS: BP 136/74
[2017-08-20] MEDS: ACETAMINOPHEN 650MG ER TAB (TYLENOL ARTHRITIS) PO PRN (17:00)
[2017-08-20 18:00] VITALS: BP 106/55
[2017-08-20] MEDS: MULTIVITAMINS/MINERALS THERAP 1 TAB PO SCH (20:50)
[2017-08-20] MEDS: PANTOPRAZOLE 40MG TAB (PROTONIX) PO SCH (20:50)
[2017-08-20] MEDS: AUGMENTIN 500 MG TAB GT SCH (20:50)
[2017-08-20] MEDS: PRAVASTATIN 20 MG TAB PO SCH (20:50)
[2017-08-20] MEDS: VITAMIN D 1,000 INTERNATIONAL UNITS TABLET PO SCH (20:50)
--- NOTE | 2017-08-20 21:59 | IPN ---
DATE: 08/20/2017 SUBJECTIVE: The patient was seen this morning out of bed to the chair. She reports she feels better these past 24 hours. Her ostomy output has significantly slowed down, and she is now in a positive fluid balance. I have decreased the rate of her intravenous (IV) fluids. She reports good oral intake. The patient complains today of pain in her left hand fourth digit, and she is noted to have some tenderness and erythema at the knuckle. Her magnesium was low this morning, and she received a gram of IV magnesium. OBJECTIVE: VITAL SIGNS: Temperature 99.0, pulse 81-100, respiratory rate 16-19, blood pressure 140/80, saturating 93-96% on room air. INTAKE AND OUTPUT: Total intake yesterday 3040, output 700 with further urine voids that were not recorded. Balance positive 2340. There is no recorded weight today. PHYSICAL EXAMINATION: GENERAL: The patient is seen out of bed to the chair, comfortable in no acute distress. Her son is present at the bedside. HEAD/NECK: Extraocular muscles are intact. The oral mucosa is moist. The neck is supple. CARDIAC: S1, S2. Irregularly irregular. 2+ radial pulse. No edema in the lower extremities. LUNGS: Clear to auscultation. The patient is comfortable on room air. ABDOMEN: Soft, nontender. There is ileostomy in the right lower quadrant and right now, the bag only has sweat EXTREMITIES: The extremities do not have any significant edema. The skin is warm with normal turgor. NEUROLOGIC: She is oriented. No focal deficits. PSYCHIATRIC: Appropriate mood and affect. LABORATORY DATA: White count 9.1, hemoglobin 8.8, platelets 596. Sodium 140, potassium 4.6, bicarbonate 19, BUN 34, creatinine 2.9, glucose 78, corrected calcium nine, magnesium 1.5, AST and ALT normal, albumin 2.4. INPATIENT MEDICATIONS: I have reduced the patient's IV fluid to 40 mL an hour. She received a one-time dose of IV magnesium this morning. Her Xarelto is presently on hold. Remainder of medications are unchanged from prior. PROBLEMS: 1. Acute kidney injury (ERNA) on chronic kidney disease (CKD) stage IV: The patient's baseline creatinine is in the low twos. Her renal function continues to improve. Her ostomy output has significantly slowed down in the past 24 hours, and she is now in a positive fluid balance. I have decreased her IV fluid rate to 40 mL an hour and hope to discontinue her off IV fluids within the next 24 hours. She has had good oral intake at present. We will repeat renal panel again in the morning. 2. Atrial fibrillation: The patient's Xarelto has been held in view of acute renal failure. Her glomerular filtration rate (GFR) at present is about 15 mL/min. I hope with further improvement in the next 24 hours, we should be able to restart her on her chronic anticoagulation. She remains off bisoprolol at the present time. 3. Gout: The patient's uric acid when she was dehydrated was 10.5. She does have a history of tophaceous gout. She continues on allopurinol. Now that her volume status has been corrected, I will recheck her uric acid level. 4. Hypomagnesemia: The patient received a run of IV magnesium. 5. [id number] metabolic acidosis: Likely secondary to acute renal failure and also high-output ostomy. The patient's bicarbonate is stable at the present moment and she is receiving a small amount of bicarbonate with IV fluid. 6. Cramping reported in the left hand where she has chronic osteoarthritic changes: Cramping may be secondary to her low magnesium level. Alternatively, may be related to her history of gout. She continues on acetaminophen as needed, allopurinol, and received a dose of magnesium. 7. Nutrition: The patient's diet was advanced. Plan of care was discussed with Dr. Davis. ABDIEL
[2017-08-20 22:00] VITALS: BP 101/58
[2017-08-21 02:00] VITALS: BP 145/81
[2017-08-21 06:00] VITALS: BP 141/75
[2017-08-21 06:00] LABS: MEAN CORPUSCULAR HEMOGLOBIN 28.3 pg (27.0-33.0); MEAN CORPUSCULAR HGB CONC 31.9 g/dl (32.0-36.5); MEAN CORPUSCULAR VOLUME 88.8 fl (80.0-96.0); PLATELET COUNT, AUTOMATED 572 10^3/uL (150-450)
[2017-08-21 06:30] LABS: ALBUMIN 2.3 GM/DL (3.2-5.2); ALBUMIN/GLOBULIN RATIO 0.59 (1.00-1.93); BILIRUBIN,TOTAL 0.3 MG/DL (0.2-1.0); CALCIUM LEVEL 7.9 MG/DL (8.8-10.2); CREATININE FOR GFR 2.46 MG/DL (0.55-1.02); GLOMERULAR FILTRATION RATE 19.7 (>32); MAGNESIUM LEVEL 1.6 MG/DL (1.8-2.4); POTASSIUM SERUM 4.5 MEQ/L (3.5-5.1); TOTAL PROTEIN 6.2 GM/DL (6.4-8.2)
[2017-08-21] MEDS: HumaLOG INSULIN (NovoLOG) PER UNIT SC SCH ×4 (07:30→20:46)
[2017-08-21] MEDS: LEVEMIR (INSULIN DETEMIR) 1 UNITS/0.01ML SC SCH (08:04)
[2017-08-21 10:00] VITALS: BP 121/68
[2017-08-21] MEDS: ALLOPURINOL 100 MG TAB PO SCH (10:49)
[2017-08-21] MEDS: ACETAMINOPHEN 650MG ER TAB (TYLENOL ARTHRITIS) PO PRN (10:49)
[2017-08-21] MEDS: ASPIRIN 81 MG ENTERIC TAB PO SCH (10:49)
[2017-08-21] MEDS: AUGMENTIN 500 MG TAB GT SCH ×2 (10:49→20:54)
[2017-08-21] MEDS: NYSTATIN 100,000 UNITS/GM TOPICAL PWD 15 GM TOP SCH ×2 (10:50→20:55)
[2017-08-21] MEDS ORDERED: MAG SULF 1GM/100ML (MAG RUN) 1 GM in APPROPRIATE DILUENT 1 EA IV ONE (11:15)
--- NOTE | 2017-08-21 11:21 | IPNPDOC ---
Date Seen The patient was seen on 08/21/17. Progress Note SUBJECTIVE: Patient seen and examined at the bedside. Chart has been reviewed. She complains of bilateral knee pain after working with physical therapy due to missing steroid injections last week at the orthopedic surgical office when the patient was hospitalized. Denies dysuria, urgency, frequency, fever or chills, flank pain. No nausea or vomiting. Complains of generalized weakness and decrease in appetite. Vitals: stable Generally, patient is awake, alert, oriented to person. Answers questions appropriately. No use of respiratory accessory muscles. No facial asymmetry. Tongue is midline. Lungs: Clear to auscultation. No wheezing, rales or rhonchi. Heart: S1, S2. Irregularly irregular. Abdomen: Soft, nontender, nondistended, positive bowel sounds. Positive ileostomy. Extremities: No cyanosis or clubbing. Knees have no effusion, redness. limited range of motion due to pain LABORATORY DATA: reviewed ASSESSMENT AND PLAN: This is an 87-year-old female with history of chronic kidney disease stage IV, non-insulin dependent diabetes, atrial fibrillation, hypertension, dyslipidemia, left lower extremity deep venous thrombosis (DVT), ulcerative colitis status post total colectomy ileostomy recently hospitalized for bowel obstruction secondary to adhesions, presented to the emergency room with weakness, was found to have acute on chronic renal failure, possible urinary tract infection (UTI), she was hypertensive, systolic pressure 80s which improved with intravenous fluid. Nephrology has been consulted for management. CURRENT ISSUES: 1. Acute renal failure superimposed on chronic kidney disease stage IV due to dehydration, ostomy output, and CTabdomen and pelvis is negative for small bowel obstruction. Patient did have an episode of hypotension which has resolved. Intravenous fluid trial by nephrology. monitor i/o. daily weights. Avoid nephrotoxins and renally dose all medications. 2. Dysuria with yeast in the urine culture. s/p rocephin which has been discontinued due to negative urine culture for bacteria. 3. Status post small bowel obstruction. Negative CT abdomen and pelvis yesterday. Continue on full liquid diet. 4. Leukocytosis secondary to possible urinary tract infection. Patient normalized with ceftriaxone. 5. Lactic acidosis due to hypotension and urinary tract infection, resolved. 6. Ulcerative colitis status post total colectomy and ileostomy, resolved. 7. Type 2 diabetes. Hypoglycemia due to decreased appetite. Hold off on insulin for glucose less than 100. 8. Atrial fibrillation rate controlled due to hypotension, bisoprolol has been held. Chronically on Xarelto reduced dosage due to renal failure. 9. History of left lower extremity deep venous thrombosis (DVT). Continue on Xarelto. 10. Hypertension, oral hypertensive medications have been held due to low blood pressure. 11. Dyslipidemia, on statin. 12. Reflux on proton pump inhibitor (PPI). 13. Hypomagnesemia: supplement with mag run 14. 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 avoid nsaids in light of renal failure. acetaminophen PRN pain. 15. bilateral knee pain due to OA, missed orthopedic appt last week due to hospital admission. Usually receives steroid injections. will consult ortho. 16. Gout, on allopurinol Disposition: awaiting physical therapy clearance. may discharge home with services once medically stable VS, I&O, 24H, [facility] Vital Signs/I&O Vital Signs Date Time Temp Pulse Resp B/P (MAP) Pulse Ox O2 Delivery O2 Flow Rate FiO2 08/21/17 02:00 98.5 94 17 145/81 (102) 97 Room Air Laboratory Data 24H LABS Laboratory Tests 2 08/21/17 05:36: Nucleated Red Blood Cells % (auto) 0.0, Anion Gap 9, Glomerular Filtration Rate 19.7L, Blood Urea Nitrogen 30H, Creatinine 2.46H, Sodium Level 140, Potassium Level 4.5, Chloride Level 110H, Carbon Dioxide Level 21, Calcium Level 7.9L, Aspartate Amino Transf (AST/SGOT) 9, Alanine Aminotransferase (ALT/SGPT) 17, Alkaline Phosphatase 71, Total Bilirubin 0.3, Uric Acid 7.0H, Total Protein 6.2L , Albumin 2.3L, Magnesium Level 1.6L, Albumin/Globulin Ratio 0.59L CBC/BMP Laboratory Tests 08/21/17 05:36 Red Blood Count 3.04 L, Mean Corpuscular Volume 88.8, Mean Corpuscular Hemoglobin 28.3, Mean Corpuscular Hemoglobin Concent 31.9 L, Red Cell Distribution Width 18.0 H, Calcium Level 7.9 L, Aspartate Amino Transf (AST/SGOT ) 9, Alanine Aminotransferase (ALT/SGPT) 17, Alkaline Phosphatase 71, Total Bilirubin 0.3, Uric Acid 7.0 H, Total Protein 6.2 L, Albumin 2.3 L Microbiology Microbiology 08/17/17 Blood Culture - Preliminary, Resulted No Growth after 72 hours. All specime... 08/17/17 Blood Culture - Preliminary, Resulted No Growth after 72 hours. All specime... 08/17/17 Urine Culture - Final, Complete Yeast Like Organism RADHA MENDOZA MD Aug 21, 2017 06:50
--- NOTE | 2017-08-21 12:56 | IPN ---
DATE: 08/21/2017 SUBJECTIVE: The patient was seen this morning at the bedside. She reports she feels well. She denies any complaints. She has been receiving physical therapy (PT). Her urine output is not being recorded. She denies any shortness of breath at rest or with ambulation. OBJECTIVE: VITAL SIGNS: Temperature 98.2, pulse 92, respiratory rate 18, blood pressure 121/68, saturating 98% on room air. INTAKE AND OUTPUT: Oral intake yesterday was 700 mL. IV fluid intake 500 mL. Urine output was not recorded. Ostomy output 150 mL. PHYSICAL EXAMINATION: GENERAL: The patient is seen sitting up in bed. Awake, alert, in no acute distress. HEAD/NECK: Extraocular muscles are intact. The oral mucosa is moist. CARDIAC: S1, S2. Irregularly irregular. 2+ radial pulse. There is trace edema in the lower extremities. LUNGS: Clear to auscultation bilaterally. ABDOMEN: Soft, nontender. There is ileostomy in the right lower quadrant with some pasty stool. EXTREMITIES: The extremities are notable for trace edema. No cyanosis or clubbing. NEUROLOGIC: She is at her baseline mentation, appropriately interactive and conversational. PSYCHIATRIC: Appropriate mood and affect. LABORATORY DATA: White count 8.0, hemoglobin 8.6, platelets 572. Sodium 140, potassium 4.5, bicarbonate 21, BUN 30, creatinine 2.4, glucose 91. Uric acid 7.0, magnesium 1.6. INPATIENT MEDICATIONS: I have resumed the patient on Xarelto 15 mg. She received a dose of IV magnesium today. She was discontinued off of IV fluids yesterday. She is started on Augmentin per the primary team. The remainder of medications are unchanged from prior. PROBLEMS: 1. Acute kidney injury (ERNA) on chronic kidney disease (CKD) stage IV: The patient's baseline creatinine is in the low 2s. Her renal function is fairly close to baseline. She was discontinued off of IV fluids yesterday. Her ostomy output has significantly slowed down in the past 48 hours. Her urine output is not being recorded. She has trace edema on examination but is otherwise comfortable on room air. Her home diuretic regimen is Lasix 10 mg by mouth daily, and she should be able to resume that within the next day or two. We will repeat renal panel again in the morning. 2. Atrial fibrillation. The patient's renal function has improved. I have reordered her Xarelto. She remains off of her home bisoprolol at this time. She also has a history of left lower extremity deep vein thrombosis (DVT). 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 Her uric acid has come down from 10 down to 7, which is appropriate at present time. 4. Hypomagnesemia: The patient has received another run of IV magnesium. 5. Nutrition: The patient is tolerating a renal diet. I see the patient was started on Augmentin. I am uncertain why. Defer to the primary team. MTDD
[2017-08-21 14:00] VITALS: BP 120/67
[2017-08-21 18:00] VITALS: BP 115/75
[2017-08-21] MEDS: PANTOPRAZOLE 40MG TAB (PROTONIX) PO SCH (20:53)
[2017-08-21] MEDS: MULTIVITAMINS/MINERALS THERAP 1 TAB PO SCH (20:54)
[2017-08-21] MEDS: VITAMIN D 1,000 INTERNATIONAL UNITS TABLET PO SCH (20:54)
[2017-08-21] MEDS: PRAVASTATIN 20 MG TAB PO SCH (20:54)
[2017-08-21 22:00] VITALS: BP 131/73
[2017-08-22 06:00] VITALS: BP 137/80
[2017-08-22 06:21] LABS: MEAN CORPUSCULAR HEMOGLOBIN 28.3 pg (27.0-33.0); MEAN CORPUSCULAR HGB CONC 31.7 g/dl (32.0-36.5); MEAN CORPUSCULAR VOLUME 89.5 fl (80.0-96.0); PLATELET COUNT, AUTOMATED 622 10^3/uL (150-450); RED CELL DISTRIBUTION WIDTH 18.1 % (11.5-14.5); WHITE BLOOD COUNT 8.3 10^3/uL (4.0-10.0)
[2017-08-22 06:55] LABS: ALBUMIN 2.3 GM/DL (3.2-5.2); ALBUMIN/GLOBULIN RATIO 0.55 (1.00-1.93); BILIRUBIN,TOTAL 0.2 MG/DL (0.2-1.0); CREATININE FOR GFR 1.94 MG/DL (0.55-1.02); GLOMERULAR FILTRATION RATE 25.9 (>32); MAGNESIUM LEVEL 1.7 MG/DL (1.8-2.4); POTASSIUM SERUM 4.6 MEQ/L (3.5-5.1); TOTAL PROTEIN 6.5 GM/DL (6.4-8.2)
[2017-08-22] MEDS: HumaLOG INSULIN (NovoLOG) PER UNIT SC SCH ×4 (07:30→21:00)
[2017-08-22] MEDS: LEVEMIR (INSULIN DETEMIR) 1 UNITS/0.01ML SC SCH (07:31)
[2017-08-22] MEDS: ALLOPURINOL 100 MG TAB PO SCH (09:18)
[2017-08-22] MEDS: ASPIRIN 81 MG ENTERIC TAB PO SCH (09:18)
[2017-08-22] MEDS: AUGMENTIN 500 MG TAB GT SCH ×2 (09:18→21:09)
[2017-08-22] MEDS: NYSTATIN 100,000 UNITS/GM TOPICAL PWD 15 GM TOP SCH ×2 (09:19→21:11)
[2017-08-22 10:00] VITALS: BP 131/77
[2017-08-22] MEDS: MAG SULF 1GM/100ML (MAG RUN) 1 GM in APPROPRIATE DILUENT 1 EA IV SCH ×2 (13:18→15:15)
--- NOTE | 2017-08-22 13:58 | IPNPDOC ---
Text Note Date of Service The patient was seen on 08/22/17. NOTE SUBJECTIVE: Patient seen and examined at the bedside. Chart has been reviewed. She complains of bilateral knee pain after working with physical therapy due to missing steroid injections last week at the orthopedic surgical office when the patient was hospitalized. Denies dysuria, urgency, frequency, fever or chills, flank pain. No nausea or vomiting. Complains of generalized weakness and decrease in appetite. Vitals: as below Generally, patient is awake, alert, oriented to person. Answers questions appropriately. No use of respiratory accessory muscles. No facial asymmetry. Tongue is midline. HEENT: normocephalic, atraumatic, anicteric eyes, moist mucous membranes. Lungs: Clear to auscultation. No wheezing, rales or rhonchi. Heart: S1, S2. Irregularly irregular. no rub , murmur or gallop Abdomen: Soft, nontender, nondistended, positive bowel sounds. Positive ileostomy. Extremities: No cyanosis or clubbing. Knees have no effusion, redness. limited range of motion due to pain LABORATORY DATA: reviewed ASSESSMENT : This is an 87-year-old female with history of chronic kidney disease stage IV, non-insulin dependent diabetes, atrial fibrillation, hypertension, dyslipidemia, left lower extremity deep venous thrombosis (DVT), ulcerative colitis status post total colectomy ileostomy recently hospitalized for bowel obstruction secondary to adhesions, presented to the emergency room with weakness, was found to have acute on chronic renal failure, hypotension, systolic pressure 80s which improved with intravenous fluid. PLAN: Acute renal failure superimposed on chronic kidney disease stage IV due to dehydration from high ileostomy output. Patient did have an episode of hypotension which has resolved with hydration. creatinine now back to baseline. Dysuria with yeast in the urine culture. will consider fluconazole. History of post small bowel obstruction. Negative CT abdomen and pelvis Leukocytosis : reactive now normalized Lactic acidosis due to hypotension resolved. Ulcerative colitis status post total colectomy and ileostomy 30 years ago. Type 2 diabetes: Continue insulin sliding scale. Atrial fibrillation rate controlled. Will restart bisoprolol. xarelto restarted. History of left lower extremity deep venous thrombosis (DVT). Continue on Xarelto. Hypertension: oral hypertensive medications have been held due to low blood pressure. now improving will restart gradually will restart diuretics on discharge. Will continue to hold amlodipine and benzapril. Dyslipidemia, on statin. Reflux on proton pump inhibitor (PPI). Hypomagnesemia: supplement with mag run Bilateral knee pain due to OA: missed orthopedic appt last week due to hospital admission. Usually receives steroid injections. No Nsaids for pain control. Gout: on allopurinol VS,Fishbone, I+O VS, Fishbone, I+O Laboratory Tests 08/22/17 05:42 Red Blood Count 3.14 L, Mean Corpuscular Volume 89.5, Mean Corpuscular Hemoglobin 28.3, Mean Corpuscular Hemoglobin Concent 31.7 L, Red Cell Distribution Width 18.1 H, Calcium Level 8.0 L, Aspartate Amino Transf (AST/SGOT ) 11, Alanine Aminotransferase (ALT/SGPT) 18, Alkaline Phosphatase 69, Total Bilirubin 0.2, Total Protein 6.5, Albumin 2.3 L Vital Signs Date Time Temp Pulse Resp B/P (MAP) Pulse Ox O2 Delivery O2 Flow Rate FiO2 08/22/17 10:00 97.7 106 18 131/77 (95) 97 Room Air I&O- Last 24 Hours up to 6 AM 08/23/17 06:00 Intake Total 70 ml Output Total 275 ml Balance -205 ml JOSIAS WOO MD Aug 22, 2017 13:58
[2017-08-22 14:00] VITALS: BP 140/68
[2017-08-22] MEDS: BISOPROLOL FUMARATE 10 MG TAB PO SCH (14:13)
[2017-08-22] MEDS: ACETAMINOPHEN 650MG ER TAB (TYLENOL ARTHRITIS) PO PRN (14:16)
--- NOTE | 2017-08-22 16:55 | IPN ---
DATE: 08/22/2017 SUBJECTIVE: The patient is seen this morning at the bedside. Her son is present. She denied any complaints. She feels well. Reports no significant shortness of breath when she was working with physical therapy, but she did have knee pain. VITAL SIGNS: Temperature 97.7, pulse 95 to 106, respiratory rate 18, blood pressure 131/77, saturating 97% on room air. Intake and output: Oral intake yesterday is recorded as 630 mL. Urine output is recorded as 700. Stool output from the ostomy 350 mL. Weight on the bed scale is not recorded today. GENERAL: The patient is seen lying in bed, comfortable, in no acute distress. Her son is present. She is in good spirits. Awake, alert, oriented, conversational. HEAD/NECK: Extraocular muscles are intact. Her tongue is moist. Her neck is supple. There is no jugular venous distention (JVD). CARDIAC: S1, S2. Irregularly irregular. 2+ radial pulse. There is no edema in the lower extremities or at the hip or dependent areas. LUNGS: Clear to auscultation bilaterally. Comfortable on room air. ABDOMEN: Soft, obese, nontender. There is a right lower quadrant ostomy. Positive bowel sounds. EXTREMITIES: Without edema. Range of motion testing is not performed. NEUROLOGIC: She is appropriately interactive, conversational, asks insightful questions. PSYCHIATRIC: Appropriate mood and affect. LABORATORY DATA: White count 8.3, hemoglobin 8.9, platelets 622. Sodium 140, potassium 4.6, bicarbonate 20, BUN 29, creatinine 1.9, glucose 117, corrected calcium 9.3, magnesium 1.7, AST and ALT normal. INPATIENT MEDICATIONS: The patient received a dose of IV magnesium today and is resumed on bisoprolol 10 mg by mouth in the morning, along with Xarelto 15 mg daily. The remainder of medications are unchanged from prior. PROBLEMS: 1. Acute renal failure on chronic kidney disease stage IV. The patient is back to her baseline renal function. Creatinine is 1.9 today. Her acute renal failure was secondary to high output ostomy and concurrent hypotension. She has been off of IV fluids for at least 48 hours now. Her blood pressure is appropriate. She does have some mild tachycardia and that is likely due to her home beta reyes being on hold. I suggest that we may be able to resume it at present. Oral intake is encouraged. 2. Atrial fibrillation. The patient is resumed on Xarelto. Her home bisoprolol was also restarted. We will monitor her blood pressure and heart rate. 3. Tophaceous gout. The patient continues on her home dose of allopurinol. Her uric acid improved with correction of her volume status and with renal recovery to baseline. 4. Hypomagnesemia. The patient received another run of IV magnesium. 5. Nutrition. Oral intake is encouraged. The patient is on a renal diet. 6. Home medications on hold. I would continue to hold the patient's amlodipine , Lasix, and benazepril at this time. Resumed bisoprolol with watch on heart rate and blood pressure. DISPOSITION: The patient continues on physical therapy for weakness and debilitation. She has been off of IV fluids for about 2 days now with acceptable electrolytes and recovery of renal function back to baseline. I will intermittently see the patient as needed and will followup with the patient in the office. Plan of care was discussed with Dr. Arabella Monte. ABDIEL
[2017-08-22] MEDS: RIVAROXABAN 15 MG TAB (XARELTO) PO SCH (17:41)
[2017-08-22 18:00] VITALS: BP 123/68
[2017-08-22] MEDS: PRAVASTATIN 20 MG TAB PO SCH (21:09)
[2017-08-22] MEDS: PANTOPRAZOLE 40MG TAB (PROTONIX) PO SCH (21:09)
[2017-08-22] MEDS: MULTIVITAMINS/MINERALS THERAP 1 TAB PO SCH (21:09)
[2017-08-22] MEDS: VITAMIN D 1,000 INTERNATIONAL UNITS TABLET PO SCH (21:10)
[2017-08-22 22:00] VITALS: BP 124/77
[2017-08-23 02:00] VITALS: BP 142/82
[2017-08-23 06:00] VITALS: BP 145/75
[2017-08-23 06:33] LABS: MEAN CORPUSCULAR HEMOGLOBIN 28.2 pg (27.0-33.0); MEAN CORPUSCULAR HGB CONC 31.9 g/dl (32.0-36.5); MEAN CORPUSCULAR VOLUME 88.5 fl (80.0-96.0); PLATELET COUNT, AUTOMATED 561 10^3/uL (150-450); RED CELL DISTRIBUTION WIDTH 18.2 % (11.5-14.5); WHITE BLOOD COUNT 7.5 10^3/uL (4.0-10.0)
[2017-08-23 06:54] LABS: ALBUMIN 2.3 GM/DL (3.2-5.2); ALBUMIN/GLOBULIN RATIO 0.62 (1.00-1.93); BILIRUBIN,TOTAL 0.2 MG/DL (0.2-1.0); CREATININE FOR GFR 1.71 MG/DL (0.55-1.02); GLOMERULAR FILTRATION RATE 29.9 (>32); POTASSIUM SERUM 4.7 MEQ/L (3.5-5.1)
[2017-08-23] MEDS: HumaLOG INSULIN (NovoLOG) PER UNIT SC SCH ×4 (07:30→21:00)
[2017-08-23] MEDS: ASPIRIN 81 MG ENTERIC TAB PO SCH (08:20)
[2017-08-23] MEDS: AUGMENTIN 500 MG TAB PO SCH ×2 (08:20→20:56)
[2017-08-23] MEDS: ALLOPURINOL 100 MG TAB PO SCH (08:20)
[2017-08-23] MEDS: BISOPROLOL FUMARATE 10 MG TAB PO SCH (08:20)
[2017-08-23] MEDS: LEVEMIR (INSULIN DETEMIR) 1 UNITS/0.01ML SC SCH (08:21)
[2017-08-23] MEDS: NYSTATIN 100,000 UNITS/GM TOPICAL PWD 15 GM TOP SCH ×2 (08:22→20:57)
[2017-08-23] MEDS ORDERED: AUGMENTIN 500 MG TAB PO SCH (09:00)
[2017-08-23 10:00] VITALS: BP 144/78
--- NOTE | 2017-08-23 11:40 | IPNPDOC ---
Subjective Date Seen The patient was seen on 08/23/17. Subjective Chief Complaint/HPI The patient is a 87-year-old female admitted with a reason for visit of Acute Renal Failure. Events since last encounter Patient seen and examined at the bedside. States that she is feeling well, and denies any acute complaints at this time. No overnight events noted from nursing staff. Objective Physical Examination General Exam: Positive: Alert, Cooperative, No Acute Distress ENT Exam: Positive: Atraumatic, Mucous membr. moist/pink Neck Exam: Negative: JVD Chest Exam: Positive: Clear to auscultation, Normal air movement Heart Exam: Positive: Rate Normal, Normal S1, Normal S2 Abdomen Exam: Positive: Soft, Other (+Ileostomy), Negative: Tenderness Extremity Exam: Negative: Tenderness, Swelling Psych Exam: Positive: Oriented x 3 Assessment /Plan Plan/VTE VTE Prophylaxis Ordered?: Yes Plan Acute Renal Failure Superimposed on CKD Stage IV, resolved Likely 2/2 Hypotension from, High output from Ileostomy s/p IVF Hydration Nephro input appreciated Recent Small Bowel Obstruction Repeat CT of the Abd/Pel with no acute findings Leukocytosis, resolved Lactic Acidosis 2/2 Hypotension, resolved s/p IVF Hydration Ulcerative Colitis s/p Total Colectomy and End Ileostomy in the past Diabetes Mellitus Cont Basal Insulin ISS for additional coverage Atrial Fibrillation Rate controlled on Bisoprolol On Xarelto for AC Hx of LLE DVT Cont Xarelto HTN, stable Continue current regimen Dyslipidemia Cont Statin GERD Cont PPI DVT Prophylaxis Already on Xarelto Disposition-physical therapy on board for functional optimization, patient will require placement in rehabilitation facility. PFS on board VS, I&O, 24H, [facility] Vital Signs/I&O Vital Signs Date Time Temp Pulse Resp B/P (MAP) Pulse Ox O2 Delivery O2 Flow Rate FiO2 08/23/17 10:00 98.4 80 18 144/78 (100) 99 Room Air I&O- Last 24 Hours up to 6 AM 08/24/17 06:00 Intake Total 240 ml Output Total 375 ml Balance -135 ml Laboratory Data 24H LABS Laboratory Tests 2 08/22/17 16:26: Bedside Glucose (Misc Panel) 226H 08/22/17 20:41: Bedside Glucose (Misc Panel) 89 08/23/17 06:19: Nucleated Red Blood Cells % (auto) 0.0, Anion Gap 7L, Glomerular Filtration Rate 29.9L, Blood Urea Nitrogen 24H, Creatinine 1.71H, Sodium Level 141, Potassium Level 4.7, Chloride Level 113H, Carbon Dioxide Level 21, Calcium Level 8.0L, Aspartate Amino Transf (AST/SGOT) 10, Alanine Aminotransferase (ALT/ SGPT) 16, Alkaline Phosphatase 64, Total Bilirubin 0.2, Total Protein 6.0L, Albumin 2.3L, Magnesium Level 2.0, Albumin/Globulin Ratio 0.62L CBC/BMP Laboratory Tests 08/23/17 06:19 Red Blood Count 3.05 L, Mean Corpuscular Volume 88.5, Mean Corpuscular Hemoglobin 28.2, Mean Corpuscular Hemoglobin Concent 31.9 L, Red Cell Distribution Width 18.2 H, Calcium Level 8.0 L, Aspartate Amino Transf (AST/SGOT ) 10, Alanine Aminotransferase (ALT/SGPT) 16, Alkaline Phosphatase 64, Total Bilirubin 0.2, Total Protein 6.0 L, Albumin 2.3 L Microbiology Microbiology 08/17/17 Blood Culture - Final, Complete NO GROWTH AFTER 5 DAYS 08/17/17 Blood Culture - Final, Complete NO GROWTH AFTER 5 DAYS 08/17/17 Urine Culture - Final, Complete Yeast Like Organism KRYSTAL KRAUSE MD Aug 23, 2017 11:40
[2017-08-23 14:00] VITALS: BP 133/74
[2017-08-23] MEDS: RIVAROXABAN 15 MG TAB (XARELTO) PO SCH (17:27)
[2017-08-23 18:00] VITALS: BP 128/76
[2017-08-23] MEDS: VITAMIN D 1,000 INTERNATIONAL UNITS TABLET PO SCH (20:56)
[2017-08-23] MEDS: PANTOPRAZOLE 40MG TAB (PROTONIX) PO SCH (20:56)
[2017-08-23] MEDS: MULTIVITAMINS/MINERALS THERAP 1 TAB PO SCH (20:56)
[2017-08-23] MEDS: PRAVASTATIN 20 MG TAB PO SCH (20:56)
[2017-08-23 22:00] VITALS: BP 124/74
[2017-08-24 02:00] VITALS: BP 132/67
[2017-08-24 06:00] VITALS: BP 169/84
[2017-08-24 07:34] LABS: MEAN CORPUSCULAR HEMOGLOBIN 28.5 pg (27.0-33.0); MEAN CORPUSCULAR HGB CONC 31.8 g/dl (32.0-36.5); MEAN CORPUSCULAR VOLUME 89.8 fl (80.0-96.0); PLATELET COUNT, AUTOMATED 556 10^3/uL (150-450); RED CELL DISTRIBUTION WIDTH 18.3 % (11.5-14.5)
[2017-08-24 08:14] LABS: ALBUMIN 2.4 GM/DL (3.2-5.2); ALBUMIN/GLOBULIN RATIO 0.6 (1.00-1.93); BILIRUBIN,TOTAL 0.2 MG/DL (0.2-1.0); CALCIUM LEVEL 8.2 MG/DL (8.8-10.2); CREATININE FOR GFR 1.82 MG/DL (0.55-1.02); GLOMERULAR FILTRATION RATE 27.8 (>32); MAGNESIUM LEVEL 1.7 MG/DL (1.8-2.4); POTASSIUM SERUM 4.6 MEQ/L (3.5-5.1); TOTAL PROTEIN 6.4 GM/DL (6.4-8.2)
[2017-08-24 09:00] VITALS: BP 128/71
[2017-08-24] MEDS: LEVEMIR (INSULIN DETEMIR) 1 UNITS/0.01ML SC SCH (09:00)
[2017-08-24] MEDS: HumaLOG INSULIN (NovoLOG) PER UNIT SC SCH ×2 (09:00→12:00)
[2017-08-24] MEDS: amLODIPine 5 MG TAB PO SCH ×2 (09:00→09:01)
[2017-08-24] MEDS: NYSTATIN 100,000 UNITS/GM TOPICAL PWD 15 GM TOP SCH (09:00)
[2017-08-24] MEDS: BISOPROLOL FUMARATE 10 MG TAB PO SCH (09:00)
[2017-08-24] MEDS: ASPIRIN 81 MG ENTERIC TAB PO SCH (09:01)
[2017-08-24] MEDS: ALLOPURINOL 100 MG TAB PO SCH (09:01)
[2017-08-24] MEDS: AUGMENTIN 500 MG TAB PO SCH (09:15)
[2017-08-24] MEDS ORDERED: NYST10PW TOP (10:32)
[2017-08-24] MEDS ORDERED: TOUJ1.2I SC (10:32)
[2017-08-24] MEDS ORDERED: MAG SULF 1GM/100ML (MAG RUN) 1 GM in APPROPRIATE DILUENT 1 EA IV ONE (11:00)
[2017-08-24 11:59] LABS: FOLATE 20.7 NG/ML (>5.4)
[2017-08-24 12:00] LABS: PERCENT SATURATION 11.7 % (13.2-45.0)
--- NOTE | 2017-08-26 19:54 | DSES ---
DATE OF ADMISSION: 08/17/2017 DATE OF DISCHARGE: 08/24/2017 PRIMARY CARE PROVIDER: Dr. Zimmerman DISCHARGE DIAGNOSES: 1. Acute renal failure on chronic kidney disease stage IV due to dehydration from high ileostomy output. 2. Atrial fibrillation on Xarelto. 3. Diabetes. 4. Ulcerative colitis with a history of total colectomy and has ileostomy in place. 5. Dyslipidemia. 6. History of left lower extremity deep vein thrombosis (DVT). 7. Gastroesophageal reflux disease (GERD). 8. Gout. 9. Bilateral osteoarthritis of the knee joint. 10. Reactive leukocytosis, normalized. 11. Recent history of small bowel obstruction in July 2017. 12. Yeast in urine, however, patient asymptomatic so not treated. DISCHARGE MEDICATIONS: - Toujeo insulin 10 units daily - allopurinol 200 mg daily - aspirin 81 mg daily - bisoprolol 10 mg daily - Caltrate one tablet daily - Capzasin cream topically as needed daily - cholecalciferol 2000 units by mouth daily - Lasix 10 mg daily - Tradjenta 5 mg daily - metoclopramide 5 mg by mouth three times a day - multivitamin one tablet by mouth daily - Nystatin powder topically twice a day - ondansetron 4 mg by mouth every 8 hours as needed for nausea or vomiting - pantoprazole 40 mg by mouth daily - pravastatin 40 mg by mouth daily - Xarelto by mouth daily HOSPITAL COURSE: This is an 87-year-old female who presented to the hospital after discharge 3 days prior to this admission when she was admitted for small bowel obstruction. She came in for weakness, difficulty in walking, malaise, generally feeling unwell. As per patient, she was not eating or drinking much since her discharge from the prior hospitalization and was also nauseous. The patient also noted to be having increased ileostomy output and also decreased urination for the two days prior to admission. The patient was noted to be hypotensive in the emergency room with a systolic blood pressure in the 80s. The patient was found to be in acute renal failure superimposed on chronic kidney disease stage IV status. The patient was admitted to the hospitalist service. She was started on aggressive hydration. Nephrology was consulted. The patient's oral antihypertensive medications were initially held and also Xarelto was held due to acute renal failure. Gradually, the patient's renal function improved and came back to baseline. The patient's Xarelto was restarted and also blood pressure also improved so the patient was started on one of her blood pressure medications, bisoprolol. The patient's amlodipine and benazepril were continued to be held. On the day of the discharge, the patient was noted to have developed mild pedal edema, so her home Lasix was also restarted. The patient was seen and evaluated by physical therapy (PT) in the hospital. The patient's urine did show yeast-like organism; however, the patient did not have any dysuria or other urinary complaints and so was not treated. On the day of discharge, the patient did not have any complaints. Vital signs were stable. She was felt to be close to her baseline functioning status. PHYSICAL EXAMINATION: VITAL SIGNS: Temperature 98.1, pulse 91, respiratory rate 20, blood pressure 122/71, pulse oximetry 97% on room air. GENERAL: The patient is awake, alert, oriented times three. Sitting up in a chair in no acute distress. HEENT: Normocephalic, atraumatic. Moist mucous membranes. Anicteric eyes. CHEST: Clear to auscultation. CARDIOVASCULAR: S1, S2 regular. No rub, murmur, or gallop. ABDOMEN: Soft, nontender. Bowel sounds present. EXTREMITIES: Trace edema. LABORATORY DATA: WBC 8, hemoglobin 8.7, platelets 556. Sodium 142, potassium 4.6, chloride 114, bicarbonate 19, BUN 25, creatinine 1.82, glucose 122, calcium 8.2, magnesium 1.7 and replaced. Ferritin 53, TIBC 247, iron 29, vitamin B12 592, folate 20.7. DISPOSITION: The patient is discharged home in stable condition. DISCHARGE INSTRUCTIONS: Patient to followup with primary care provider in 1 to 2 weeks. Patient to followup with nephrology within 1 week. Carbohydrate consistent diet. Activity as tolerated.
== END 2017-08-24 12:25 | disposition home health service (06) | DRG 683 ==
LOC: M ED 10:16 → EDBD 10:16 → M ED INP 14:15 → M MSPAV 15:30
PROVIDERS: ADMIT Internal Medicine; ATTEND Internal Medicine Nephrology
DX: N17.9 Acute kidney failure, unspecified (principal); E87.2 Acidosis; N18.4 Chronic kidney disease, stage 4 (severe); E11.22 Type 2 diabetes mellitus with diabetic chronic kidney disease; I48.91 Unspecified atrial fibrillation; I12.9 Hypertensive chronic kidney disease with stage 1 through stage 4 chronic kidney disease, or unspecified chronic kidney disease; I95.9 Hypotension, unspecified; N25.81 Secondary hyperparathyroidism of renal origin; E78.2 Mixed hyperlipidemia; E83.42 Hypomagnesemia; Z66 Do not resuscitate; E86.0 Dehydration; M19.042 Primary osteoarthritis, left hand; D64.9 Anemia, unspecified; K21.9 Gastro-esophageal reflux disease without esophagitis; M1A.0791 Idiopathic chronic gout, unspecified ankle and foot, with tophus (tophi); Z79.899 Other long term (current) drug therapy; Z79.4 Long term (current) use of insulin; Z79.82 Long term (current) use of aspirin; Z91.040 Latex allergy status; Z88.5 Allergy status to narcotic agent; Z88.8 Allergy status to other drugs, medicaments and biological substances; Z93.2 Ileostomy status; Z90.49 Acquired absence of other specified parts of digestive tract; Z79.01 Long term (current) use of anticoagulants; Z86.718 Personal history of other venous thrombosis and embolism

== ENCOUNTER → 2017-11-22 | Outpatient (CLI) | payer MEDICARE, BC | LOC: M WUC 14:00 | DX: M85.872 Other specified disorders of bone density and structure, left ankle and foot (principal); M10.072 Idiopathic gout, left ankle and foot; M19.072 Primary osteoarthritis, left ankle and foot; M20.12 Hallux valgus (acquired), left foot | CPT/HCPCS: 84550 ==

== ENCOUNTER → 2017-11-22 | Outpatient (REF) | payer MEDICARE, BC | LOC: M LAB REF 17:23 | DX: M10.072 Idiopathic gout, left ankle and foot (principal) ==

== ENCOUNTER → 2017-11-29 | Outpatient (REF) | payer MEDICARE, BC ==
[2017-11-29 19:06] LABS: C REACTIVE PROTEIN QUANTITATIV 1.08 MG/DL (0.00-0.30)
== END ==
LOC: M LAB REF 18:17
DX: S91.105A Unspecified open wound of left lesser toe(s) without damage to nail, initial encounter (principal); W18.30XA Fall on same level, unspecified, initial encounter; Y92.009 Unspecified place in unspecified non-institutional (private) residence as the place of occurrence of the external cause
CPT/HCPCS: 86140

== ENCOUNTER → 2017-12-08 | Outpatient (REF) | payer MEDICARE, BC | LOC: M LAB REF 16:08 | DX: M86.172 Other acute osteomyelitis, left ankle and foot (principal); E11.621 Type 2 diabetes mellitus with foot ulcer; L97.524 Non-pressure chronic ulcer of other part of left foot with necrosis of bone | CPT/HCPCS: 87186 ==

== ENCOUNTER → 2017-12-15 | Outpatient (CLI) | payer MEDICARE, BC | LOC: M RAD 08:21 | DX: E11.621 Type 2 diabetes mellitus with foot ulcer (principal); L97.524 Non-pressure chronic ulcer of other part of left foot with necrosis of bone | CPT/HCPCS: 93926 ==

== ENCOUNTER → 2017-12-22 | Outpatient (REF) | payer MEDICARE, BC ==
[2017-12-22 18:10] LABS: ESTIMATED AVERAGE GLUCOSE 174 MG/DL (60-110); HEMOGLOBIN A1c 7.7 %
== END ==
LOC: M LAB REF 16:51
DX: E11.621 Type 2 diabetes mellitus with foot ulcer (principal); L97.524 Non-pressure chronic ulcer of other part of left foot with necrosis of bone; L97.522 Non-pressure chronic ulcer of other part of left foot with fat layer exposed
CPT/HCPCS: 83036

== ENCOUNTER → 2018-02-23 | Outpatient (REF) | payer MEDICARE, BC | LOC: M LAB REF 16:43 | DX: L97.524 Non-pressure chronic ulcer of other part of left foot with necrosis of bone (principal); E11.621 Type 2 diabetes mellitus with foot ulcer | CPT/HCPCS: 87077; 87186 ==

== ENCOUNTER 2018-03-18 16:55 | Inpatient (IN) | payer MEDICARE, BC ==
[2018-03-18] MEDS: ACETAMINOPHEN TAB 650MG DOSE (2X325MG) PO (16:42)
[2018-03-18] MEDS: ONDANSETRON 4MG/2ML VIAL (J2405) IV (16:43)
[2018-03-18] MEDS: NS 1,000 ML IV ×2 (16:43→21:06)
[2018-03-18 16:44] LABS: BASO % 0.2 % (0.0-1.0); EOS % 0.1 % (0.0-3.0); HEMATOCRIT 28.8 % (36.0-47.0); HEMOGLOBIN 9.1 g/dl (12.0-15.5); IMMATURE GRANULOCYTE % 0.6 % (0-3.0); LYMPH # 0.4 10^3/uL (1.5-4.5); LYMPH % 3.5 % (24.0-44.0); MEAN CORPUSCULAR HGB CONC 31.6 g/dl (32.0-36.5); MEAN CORPUSCULAR VOLUME 82.3 fl (80.0-96.0); MONO # 0.7 10^3/uL (0.0-0.8); MONO % 6.4 % (0.0-5.0); NEUTROPHILS % 89.2 % (36.0-66.0); PLATELET COUNT, AUTOMATED 392 10^3/uL (150-450); RED CELL DISTRIBUTION WIDTH 16.7 % (11.5-14.5); WHITE BLOOD COUNT 11.2 10^3/uL (4.0-10.0)
[2018-03-18 16:53] LABS: CPK CREATINE PHOSPHOKINASE 60 U/L (26-192); TROPONIN I < 0.02 NG/ML (< 0.10)
[2018-03-18 16:53] LABS: LACTIC ACID SEPSIS PROTOCOL 1.8 MMOL/L (0.4-2.0)
[2018-03-18 16:54] LABS: CK-MB VALUE MASS < 1.0 NG/ML (<3.6); MB/CK RELATIVE INDEX 1.66 (< OR =4)
[2018-03-18 17:06] LABS: ALBUMIN 2.8 GM/DL (3.2-5.2); ALBUMIN/GLOBULIN RATIO 0.61 (1.00-1.93); ALKALINE PHOSPHATASE 76 U/L (45-117); ALT/SGPT 19 U/L (12-78); ANION GAP 12 MEQ/L (8-16); AST/SGOT 20 U/L (7-37); BILIRUBIN,DIRECT < 0.1 MG/DL (0.0-0.2); BILIRUBIN,TOTAL 0.4 MG/DL (0.2-1.0); BLOOD UREA NITROGEN 51 MG/DL (7-18); CALCIUM LEVEL 9.3 MG/DL (8.8-10.2); CARBON DIOXIDE LEVEL 22 MEQ/L (21-32); CHLORIDE LEVEL 101 MEQ/L (98-107); CREATININE FOR GFR 2.62 MG/DL (0.55-1.30); GLOMERULAR FILTRATION RATE 18.3 (>32); GLUCOSE, FASTING 183 MG/DL (70-100); LIPASE 289 U/L (73-393); POTASSIUM SERUM 4.6 MEQ/L (3.5-5.1); SODIUM LEVEL 135 MEQ/L (136-145); TOTAL PROTEIN 7.4 GM/DL (6.4-8.2)
[2018-03-18 18:07] LABS: KETONE, URINE AUTO RFX NEGATIVE (NEGATIVE); MUCUS, URINE RFX SMALL (NEGATIVE); NITRITE, URINE AUTO RFX NEGATIVE (NEGATIVE); RBC, URINE AUTO RFX 102 /HPF (0-3); SPECIFIC GRAVITY UR AUTO RFX 1.008 (1.002-1.035); SQUAM EPITHELIAL CELL UR AURFX 9 /HPF (0-6)
[2018-03-18 18:08] LABS: LEUKOCYTE ESTERASE UR AUTO RFX 2+ (NEGATIVE); WBC, URINE AUTO RFX 73 /HPF (0-3)
[2018-03-18] MEDS: cefTRIAXone SOD 1 GM in D5W MINI-BAG PLUS 50 ML IV (18:51)
[2018-03-18] MEDS: NS 500 ML IV (18:51)
[2018-03-18] MEDS ORDERED: GLUCOSE 4 GM CHEW TABLET PO (19:00)
[2018-03-18] MEDS ORDERED: GLUCAGON FOR INJ 1 MG VIAL (J1610) SC (19:00)
[2018-03-18] MEDS ORDERED: DEXTROSE 50% 50 ML SYRINGE IV (19:00)
[2018-03-18] MEDS: SODIUM CHLORIDE 0.9% 1000 ML IV (20:00)
[2018-03-18] MEDS: HumaLOG INSULIN (NovoLOG) PER UNIT SC (21:00)
[2018-03-18 21:11] LABS: BEDSIDE GLUCOSE 132 MG/DL (83-110)
[2018-03-18] MEDS: PRAVASTATIN 20 MG TAB PO (23:20)
[2018-03-18] MEDS: CAPSAICIN 0.025% CR 60 GM TOP (23:20)
[2018-03-18] MEDS: NYSTATIN 100,000 UNITS/GM TOPICAL PWD 15 GM TOP (23:21)
[2018-03-19] MEDS: ONDANSETRON 4MG/2ML VIAL (J2405) IV ×2 (00:05→21:35)
[2018-03-19] MEDS: NS 1,000 ML IV ×3 (01:33→08:56)
[2018-03-19] MEDS: ACETAMINOPHEN TAB 650MG DOSE (2X325MG) PO ×3 (01:33→20:30)
[2018-03-19 06:39] LABS: BASO % 0.1 % (0.0-1.0); HEMATOCRIT 24.4 % (36.0-47.0); HEMOGLOBIN 7.9 g/dl (12.0-15.5); IMMATURE GRANULOCYTE % 0.7 % (0-3.0); LYMPH # 0.3 10^3/uL (1.5-4.5); LYMPH % 1.9 % (24.0-44.0); MEAN CORPUSCULAR HEMOGLOBIN 26.6 pg (27.0-33.0); MEAN CORPUSCULAR HGB CONC 32.4 g/dl (32.0-36.5); MEAN CORPUSCULAR VOLUME 82.2 fl (80.0-96.0); MONO # 0.9 10^3/uL (0.0-0.8); MONO % 6.1 % (0.0-5.0); NEUTROPHILS # 13.4 10^3/uL (1.8-7.7); NEUTROPHILS % 91.2 % (36.0-66.0); PLATELET COUNT, AUTOMATED 319 10^3/uL (150-450); RED BLOOD COUNT 2.97 10^6/uL (4.00-5.40); RED CELL DISTRIBUTION WIDTH 16.7 % (11.5-14.5); WHITE BLOOD COUNT 14.7 10^3/uL (4.0-10.0)
[2018-03-19 06:43] LABS: POSITIVE DIFF POS FLAG
[2018-03-19 07:00] LABS: ANION GAP 10 MEQ/L (8-16); BLOOD UREA NITROGEN 44 MG/DL (7-18); CARBON DIOXIDE LEVEL 22 MEQ/L (21-32); CHLORIDE LEVEL 108 MEQ/L (98-107); CREATININE FOR GFR 2.41 MG/DL (0.55-1.30); GLOMERULAR FILTRATION RATE 20.1 (>32); GLUCOSE, FASTING 124 MG/DL (70-100); POTASSIUM SERUM 3.5 MEQ/L (3.5-5.1); SODIUM LEVEL 140 MEQ/L (136-145)
[2018-03-19] MEDS: ALLOPURINOL 100 MG TAB PO (08:22)
[2018-03-19] MEDS: ASPIRIN 81 MG ENTERIC TAB PO (08:22)
[2018-03-19] MEDS: HumaLOG INSULIN (NovoLOG) PER UNIT SC ×4 (08:22→20:44)
[2018-03-19] MEDS: PANTOPRAZOLE 40MG TAB (PROTONIX) PO (08:22)
[2018-03-19] MEDS: METOCLOPRAMIDE 5 MG TAB PO ×3 (08:22→17:55)
[2018-03-19] MEDS: NYSTATIN 100,000 UNITS/GM TOPICAL PWD 15 GM TOP (08:23)
[2018-03-19] MEDS ORDERED: LevoFLOXacin IV 500 MG in APPROPRIATE DILUENT 1 EA IV (08:30)
[2018-03-19 09:11] LABS: FERRITIN 145 NG/ML (8-252); IRON (FE) 7 UG/DL (50-170); PERCENT SATURATION 3.1 % (13.2-45.0); TOTAL IRON BINDING CAPACITY 229 UG/DL (250-450)
[2018-03-19 09:17] LABS: FOLATE > 24.0 NG/ML (>5.4); VITAMIN B12 LEVEL 473 PG/ML (247-911)
[2018-03-19 11:26] LABS: BEDSIDE GLUCOSE 117 MG/DL (83-110)
[2018-03-19] MEDS: FERROUS GLUCONATE 324 MG TAB PO ×2 (11:52→20:30)
[2018-03-19 12:11] LABS: HEMATOCRIT 27.8 % (36.0-47.0); HEMOGLOBIN 8.9 g/dl (12.0-15.5)
[2018-03-19 17:00] LABS: BEDSIDE GLUCOSE 95 MG/DL (83-110)
[2018-03-19] MEDS: RIVAROXABAN 15 MG TAB (XARELTO) PO (17:55)
[2018-03-19] MEDS: cefTRIAXone SOD 1 GM in D5W MINI-BAG PLUS 50 ML IV (17:55)
[2018-03-19] MEDS: VITAMIN D 1,000 INTERNATIONAL UNITS TABLET PO (20:30)
[2018-03-19] MEDS: MULTIVITAMINS/MINERALS THERAP 1 TAB PO (20:30)
[2018-03-19] MEDS: PRAVASTATIN 20 MG TAB PO (20:30)
[2018-03-19 20:46] LABS: BEDSIDE GLUCOSE 140 MG/DL (83-110)
[2018-03-20] MEDS: NS 1,000 ML IV ×2 (00:14→14:20)
[2018-03-20] MEDS: ACETAMINOPHEN TAB 650MG DOSE (2X325MG) PO ×3 (00:15→17:55)
[2018-03-20] MEDS: NYSTATIN 100,000 UNITS/GM TOPICAL PWD 15 GM TOP ×3 (00:16→21:00)
[2018-03-20 07:26] LABS: BEDSIDE GLUCOSE 92 MG/DL (83-110)
[2018-03-20] MEDS: HumaLOG INSULIN (NovoLOG) PER UNIT SC ×4 (07:30→20:37)
[2018-03-20] MEDS: METOCLOPRAMIDE 5 MG TAB PO ×3 (07:34→17:55)
[2018-03-20 08:15] LABS: BASO % 0.1 % (0.0-1.0); EOS % 0.1 % (0.0-3.0); HEMATOCRIT 25.1 % (36.0-47.0); HEMOGLOBIN 8.2 g/dl (12.0-15.5); IMMATURE GRANULOCYTE % 0.8 % (0-3.0); LYMPH # 0.5 10^3/uL (1.5-4.5); LYMPH % 3.1 % (24.0-44.0); MEAN CORPUSCULAR HEMOGLOBIN 26.7 pg (27.0-33.0); MEAN CORPUSCULAR HGB CONC 32.7 g/dl (32.0-36.5); MEAN CORPUSCULAR VOLUME 81.8 fl (80.0-96.0); MONO # 0.8 10^3/uL (0.0-0.8); MONO % 4.5 % (0.0-5.0); NEUTROPHILS # 15.7 10^3/uL (1.8-7.7); NEUTROPHILS % 91.4 % (36.0-66.0); PLATELET COUNT, AUTOMATED 312 10^3/uL (150-450); RED BLOOD COUNT 3.07 10^6/uL (4.00-5.40); WHITE BLOOD COUNT 17.2 10^3/uL (4.0-10.0)
[2018-03-20 08:37] LABS: ALBUMIN 2.1 GM/DL (3.2-5.2); ALBUMIN/GLOBULIN RATIO 0.66 (1.00-1.93); ALKALINE PHOSPHATASE 88 U/L (45-117); ALT/SGPT 21 U/L (12-78); ANION GAP 13 MEQ/L (8-16); AST/SGOT 24 U/L (7-37); BILIRUBIN,TOTAL 0.3 MG/DL (0.2-1.0); BLOOD UREA NITROGEN 40 MG/DL (7-18); CALCIUM LEVEL 7.4 MG/DL (8.8-10.2); CARBON DIOXIDE LEVEL 19 MEQ/L (21-32); CHLORIDE LEVEL 109 MEQ/L (98-107); CREATININE FOR GFR 2.29 MG/DL (0.55-1.30); GLOMERULAR FILTRATION RATE 21.4 (>32); GLUCOSE, FASTING 133 MG/DL (70-100); MAGNESIUM LEVEL 1.7 MG/DL (1.8-2.4); POTASSIUM SERUM 4.1 MEQ/L (3.5-5.1); SODIUM LEVEL 141 MEQ/L (136-145); TOTAL PROTEIN 5.3 GM/DL (6.4-8.2)
[2018-03-20 08:37] LABS: LACTIC ACID SEPSIS PROTOCOL 1.4 MMOL/L (0.4-2.0)
[2018-03-20] MEDS: ALLOPURINOL 100 MG TAB PO (09:09)
[2018-03-20] MEDS: FERROUS GLUCONATE 324 MG TAB PO ×2 (09:10→20:26)
[2018-03-20] MEDS: PANTOPRAZOLE 40MG TAB (PROTONIX) PO (09:10)
[2018-03-20] MEDS: ASPIRIN 81 MG ENTERIC TAB PO (09:10)
[2018-03-20 11:23] LABS: BEDSIDE GLUCOSE 128 MG/DL (83-110)
[2018-03-20] MEDS: MAG SULF 1GM/100ML (MAG RUN) 1 GM in APPROPRIATE DILUENT 1 EA IV (11:45)
[2018-03-20] MEDS: ONDANSETRON 4MG/2ML VIAL (J2405) IV (16:51)
[2018-03-20 16:58] LABS: BEDSIDE GLUCOSE 110 MG/DL (83-110)
[2018-03-20] MEDS: RIVAROXABAN 15 MG TAB (XARELTO) PO (17:55)
[2018-03-20] MEDS: cefTRIAXone SOD 1 GM in D5W MINI-BAG PLUS 50 ML IV (17:56)
[2018-03-20] MEDS: PRAVASTATIN 20 MG TAB PO (20:27)
[2018-03-20] MEDS: VITAMIN D 1,000 INTERNATIONAL UNITS TABLET PO (20:27)
[2018-03-20] MEDS: MULTIVITAMINS/MINERALS THERAP 1 TAB PO (20:27)
[2018-03-20 20:40] LABS: BEDSIDE GLUCOSE 190 MG/DL (83-110)
[2018-03-21] MEDS: ACETAMINOPHEN TAB 650MG DOSE (2X325MG) PO ×4 (00:10→23:45)
[2018-03-21 04:08] LABS: HEMATOCRIT 24.3 % (36.0-47.0); HEMOGLOBIN 7.7 g/dl (12.0-15.5); MEAN CORPUSCULAR HEMOGLOBIN 25.8 pg (27.0-33.0); MEAN CORPUSCULAR HGB CONC 31.7 g/dl (32.0-36.5); MEAN CORPUSCULAR VOLUME 81.3 fl (80.0-96.0); PLATELET COUNT, AUTOMATED 268 10^3/uL (150-450); RED BLOOD COUNT 2.99 10^6/uL (4.00-5.40); RED CELL DISTRIBUTION WIDTH 16.7 % (11.5-14.5)
[2018-03-21 04:09] LABS: ADD MANUAL DIFFER YES; DIFF SLIDE NUMBER 48; POSITIVE MORPH POS FLAG
[2018-03-21 04:29] LABS: ALBUMIN 1.9 GM/DL (3.2-5.2); ALBUMIN/GLOBULIN RATIO 0.49 (1.00-1.93); ALKALINE PHOSPHATASE 98 U/L (45-117); ALT/SGPT 20 U/L (12-78); ANION GAP 9 MEQ/L (8-16); AST/SGOT 19 U/L (7-37); BILIRUBIN,TOTAL 0.2 MG/DL (0.2-1.0); BLOOD UREA NITROGEN 36 MG/DL (7-18); CALCIUM LEVEL 7.5 MG/DL (8.8-10.2); CARBON DIOXIDE LEVEL 20 MEQ/L (21-32); CHLORIDE LEVEL 109 MEQ/L (98-107); CREATININE FOR GFR 2.08 MG/DL (0.55-1.30); GLOMERULAR FILTRATION RATE 23.9 (>32); GLUCOSE, FASTING 99 MG/DL (70-100); MAGNESIUM LEVEL 1.8 MG/DL (1.8-2.4); POTASSIUM SERUM 3.6 MEQ/L (3.5-5.1); SODIUM LEVEL 138 MEQ/L (136-145); TOTAL PROTEIN 5.8 GM/DL (6.4-8.2)
[2018-03-21 04:53] LABS: ANISOCYTOSIS 1+; BANDS 2 % (< 11); LYMPHOCYTES 4 % (16-52); METAMYELOCYTES 4 % (0-0); MONOCYTES 10 % (0-8); NEUTROPHILS 80 % (35-75); PLATELET ESTIMATE NORMAL (NORMAL)
[2018-03-21 04:54] LABS: HYPOCHROMASIA 1+; TOXIC VACUOLATION 1+
[2018-03-21] MEDS: NS 1,000 ML IV ×2 (06:35→14:24)
[2018-03-21] MEDS: HumaLOG INSULIN (NovoLOG) PER UNIT SC ×4 (07:22→20:21)
[2018-03-21] MEDS: METOCLOPRAMIDE 5 MG TAB PO ×3 (07:37→16:36)
[2018-03-21] MEDS: FERROUS GLUCONATE 324 MG TAB PO ×2 (08:28→20:22)
[2018-03-21] MEDS: ASPIRIN 81 MG ENTERIC TAB PO (08:28)
[2018-03-21] MEDS: PANTOPRAZOLE 40MG TAB (PROTONIX) PO (08:28)
[2018-03-21] MEDS: NYSTATIN 100,000 UNITS/GM TOPICAL PWD 15 GM TOP ×2 (08:29→20:48)
[2018-03-21] MEDS: ALLOPURINOL 100 MG TAB PO (08:29)
[2018-03-21] MEDS ORDERED: LevoFLOXacin IV 250 MG in APPROPRIATE DILUENT 1 EA IV (08:30)
[2018-03-21 11:27] LABS: BEDSIDE GLUCOSE 156 MG/DL (83-110)
[2018-03-21] MEDS: METOPROLOL TART 12.5 MG PER 1/2 TAB PO ×3 (14:24→23:44)
[2018-03-21 16:31] LABS: BEDSIDE GLUCOSE 139 MG/DL (83-110)
[2018-03-21] MEDS: RIVAROXABAN 15 MG TAB (XARELTO) PO (17:10)
[2018-03-21] MEDS: cefTRIAXone SOD 1 GM in D5W MINI-BAG PLUS 50 ML IV (17:10)
[2018-03-21] MEDS: MULTIVITAMINS/MINERALS THERAP 1 TAB PO (20:22)
[2018-03-21 20:27] LABS: BEDSIDE GLUCOSE 195 MG/DL (83-110)
[2018-03-21] MEDS: PRAVASTATIN 20 MG TAB PO (20:48)
[2018-03-21] MEDS: VITAMIN D 1,000 INTERNATIONAL UNITS TABLET PO (20:48)
[2018-03-21] MEDS: ONDANSETRON 4MG/2ML VIAL (J2405) IV (22:33)
[2018-03-22] MEDS: NS 1,000 ML IV (02:58)
[2018-03-22 05:44] LABS: BASO % 0.2 % (0.0-1.0); EOS # 0.1 10^3/uL (0.0-0.50); EOS % 0.8 % (0.0-3.0); HEMATOCRIT 24.6 % (36.0-47.0); HEMOGLOBIN 8.1 g/dl (12.0-15.5); LYMPH # 0.7 10^3/uL (1.5-4.5); LYMPH % 6.2 % (24.0-44.0); MEAN CORPUSCULAR HEMOGLOBIN 26.6 pg (27.0-33.0); MEAN CORPUSCULAR HGB CONC 32.9 g/dl (32.0-36.5); MEAN CORPUSCULAR VOLUME 80.7 fl (80.0-96.0); MONO # 1.3 10^3/uL (0.0-0.8); MONO % 10.9 % (0.0-5.0); NEUTROPHILS # 9.3 10^3/uL (1.8-7.7); NEUTROPHILS % 80.9 % (36.0-66.0); PLATELET COUNT, AUTOMATED 273 10^3/uL (150-450); RED BLOOD COUNT 3.05 10^6/uL (4.00-5.40); RED CELL DISTRIBUTION WIDTH 17.2 % (11.5-14.5); WHITE BLOOD COUNT 11.5 10^3/uL (4.0-10.0)
[2018-03-22] MEDS: METOPROLOL TART 12.5 MG PER 1/2 TAB PO (06:03)
[2018-03-22 06:05] LABS: ALBUMIN 1.9 GM/DL (3.2-5.2); ALBUMIN/GLOBULIN RATIO 0.56 (1.00-1.93); ALKALINE PHOSPHATASE 119 U/L (45-117); ALT/SGPT 21 U/L (12-78); ANION GAP 12 MEQ/L (8-16); AST/SGOT 18 U/L (7-37); BILIRUBIN,TOTAL 0.2 MG/DL (0.2-1.0); BLOOD UREA NITROGEN 28 MG/DL (7-18); CALCIUM LEVEL 7.4 MG/DL (8.8-10.2); CARBON DIOXIDE LEVEL 19 MEQ/L (21-32); CHLORIDE LEVEL 110 MEQ/L (98-107); CREATININE FOR GFR 1.91 MG/DL (0.55-1.30); GLOMERULAR FILTRATION RATE 26.3 (>32); GLUCOSE, FASTING 116 MG/DL (70-100); MAGNESIUM LEVEL 1.9 MG/DL (1.8-2.4); POTASSIUM SERUM 3.7 MEQ/L (3.5-5.1); SODIUM LEVEL 141 MEQ/L (136-145); TOTAL PROTEIN 5.3 GM/DL (6.4-8.2)
[2018-03-22] MEDS: HumaLOG INSULIN (NovoLOG) PER UNIT SC ×4 (07:50→20:16)
[2018-03-22] MEDS: METOCLOPRAMIDE 5 MG TAB PO ×3 (07:50→17:53)
[2018-03-22] MEDS: ASPIRIN 81 MG ENTERIC TAB PO (08:33)
[2018-03-22] MEDS: ALLOPURINOL 100 MG TAB PO (08:33)
[2018-03-22] MEDS: FERROUS GLUCONATE 324 MG TAB PO ×2 (08:33→20:21)
[2018-03-22] MEDS: PANTOPRAZOLE 40MG TAB (PROTONIX) PO (08:33)
[2018-03-22] MEDS: NYSTATIN 100,000 UNITS/GM TOPICAL PWD 15 GM TOP ×2 (08:34→20:21)
[2018-03-22 11:17] LABS: BEDSIDE GLUCOSE 151 MG/DL (83-110)
[2018-03-22] MEDS: METOPROLOL TART 25 MG TABLET PO ×3 (11:33→23:55)
[2018-03-22 16:32] LABS: BEDSIDE GLUCOSE 176 MG/DL (83-110)
[2018-03-22] MEDS: RIVAROXABAN 15 MG TAB (XARELTO) PO (17:53)
[2018-03-22 20:16] LABS: BEDSIDE GLUCOSE 204 MG/DL (83-110)
[2018-03-22] MEDS: MULTIVITAMINS/MINERALS THERAP 1 TAB PO (20:21)
[2018-03-22] MEDS: AUGMENTIN 500 MG TAB PO (20:21)
[2018-03-22] MEDS: PRAVASTATIN 20 MG TAB PO (20:35)
[2018-03-22] MEDS: VITAMIN D 1,000 INTERNATIONAL UNITS TABLET PO (20:35)
[2018-03-23 05:14] LABS: BASO % 0.2 % (0.0-1.0); EOS # 0.2 10^3/uL (0.0-0.50); EOS % 1.7 % (0.0-3.0); HEMATOCRIT 25.3 % (36.0-47.0); HEMOGLOBIN 8.3 g/dl (12.0-15.5); IMMATURE GRANULOCYTE % 1.1 % (0-3.0); LYMPH # 0.9 10^3/uL (1.5-4.5); LYMPH % 8.2 % (24.0-44.0); MEAN CORPUSCULAR HEMOGLOBIN 25.9 pg (27.0-33.0); MEAN CORPUSCULAR HGB CONC 32.8 g/dl (32.0-36.5); MEAN CORPUSCULAR VOLUME 79.1 fl (80.0-96.0); MONO # 1.1 10^3/uL (0.0-0.8); MONO % 9.4 % (0.0-5.0); NEUTROPHILS # 8.8 10^3/uL (1.8-7.7); NEUTROPHILS % 79.4 % (36.0-66.0); PLATELET COUNT, AUTOMATED 321 10^3/uL (150-450); RED CELL DISTRIBUTION WIDTH 17.3 % (11.5-14.5); WHITE BLOOD COUNT 11.1 10^3/uL (4.0-10.0)
[2018-03-23] MEDS: METOPROLOL TART 25 MG TABLET PO ×2 (05:31→21:49)
[2018-03-23 05:33] LABS: ALBUMIN 1.8 GM/DL (3.2-5.2); ALBUMIN/GLOBULIN RATIO 0.42 (1.00-1.93); ALKALINE PHOSPHATASE 130 U/L (45-117); ALT/SGPT 20 U/L (12-78); ANION GAP 11 MEQ/L (8-16); AST/SGOT 12 U/L (7-37); BILIRUBIN,TOTAL 0.4 MG/DL (0.2-1.0); BLOOD UREA NITROGEN 23 MG/DL (7-18); CALCIUM LEVEL 8.2 MG/DL (8.8-10.2); CARBON DIOXIDE LEVEL 19 MEQ/L (21-32); CHLORIDE LEVEL 110 MEQ/L (98-107); CREATININE FOR GFR 1.65 MG/DL (0.55-1.30); GLOMERULAR FILTRATION RATE 31.2 (>32); GLUCOSE, FASTING 108 MG/DL (70-100); MAGNESIUM LEVEL 1.8 MG/DL (1.8-2.4); POTASSIUM SERUM 3.7 MEQ/L (3.5-5.1); SODIUM LEVEL 140 MEQ/L (136-145); TOTAL PROTEIN 6.1 GM/DL (6.4-8.2)
[2018-03-23] MEDS: FUROSEMIDE 10MG PER 1/2 TABLET PO (09:00)
[2018-03-23] MEDS: HumaLOG INSULIN (NovoLOG) PER UNIT SC ×2 (10:15→12:43)
[2018-03-23] MEDS: METOCLOPRAMIDE 5 MG TAB PO ×3 (10:28→17:51)
[2018-03-23] MEDS: ASPIRIN 81 MG ENTERIC TAB PO (10:28)
[2018-03-23] MEDS: PANTOPRAZOLE 40MG TAB (PROTONIX) PO (10:29)
[2018-03-23] MEDS: FERROUS GLUCONATE 324 MG TAB PO ×2 (10:29→21:49)
[2018-03-23] MEDS: AUGMENTIN 500 MG TAB PO ×2 (10:30→21:48)
[2018-03-23] MEDS: ALLOPURINOL 100 MG TAB PO (10:30)
[2018-03-23] MEDS: NYSTATIN 100,000 UNITS/GM TOPICAL PWD 15 GM TOP ×2 (10:31→21:00)
[2018-03-23 11:37] LABS: BEDSIDE GLUCOSE 28 MG/DL (83-110)
[2018-03-23 11:42] LABS: BEDSIDE GLUCOSE 153 MG/DL (83-110)
[2018-03-23 11:57] LABS: BEDSIDE GLUCOSE 173 MG/DL (83-110)
[2018-03-23 16:15] LABS: BEDSIDE GLUCOSE 165 MG/DL (83-110)
[2018-03-23 16:50] LABS: BEDSIDE GLUCOSE 143 MG/DL (83-110)
[2018-03-23] MEDS: RIVAROXABAN 15 MG TAB (XARELTO) PO (17:51)
[2018-03-23 20:47] LABS: BEDSIDE GLUCOSE 220 MG/DL (83-110)
[2018-03-23] MEDS: VITAMIN D 1,000 INTERNATIONAL UNITS TABLET PO (21:48)
[2018-03-23] MEDS: PRAVASTATIN 20 MG TAB PO (21:48)
[2018-03-23] MEDS: MULTIVITAMINS/MINERALS THERAP 1 TAB PO (21:49)
[2018-03-24 05:22] LABS: BASO % 0.2 % (0.0-1.0); EOS # 0.3 10^3/uL (0.0-0.50); EOS % 2.5 % (0.0-3.0); HEMATOCRIT 24.2 % (36.0-47.0); MEAN CORPUSCULAR HEMOGLOBIN 25.9 pg (27.0-33.0); MEAN CORPUSCULAR HGB CONC 33.1 g/dl (32.0-36.5); MEAN CORPUSCULAR VOLUME 78.3 fl (80.0-96.0); MONO % 10.2 % (0.0-5.0); NEUTROPHILS # 7.7 10^3/uL (1.8-7.7); NEUTROPHILS % 75.1 % (36.0-66.0); PLATELET COUNT, AUTOMATED 345 10^3/uL (150-450); RED BLOOD COUNT 3.09 10^6/uL (4.00-5.40); RED CELL DISTRIBUTION WIDTH 17.2 % (11.5-14.5); WHITE BLOOD COUNT 10.2 10^3/uL (4.0-10.0)
[2018-03-24 05:32] LABS: ALBUMIN/GLOBULIN RATIO 0.49 (1.00-1.93); ALKALINE PHOSPHATASE 141 U/L (45-117); ALT/SGPT 20 U/L (12-78); ANION GAP 9 MEQ/L (8-16); AST/SGOT 12 U/L (7-37); BILIRUBIN,TOTAL 0.4 MG/DL (0.2-1.0); BLOOD UREA NITROGEN 23 MG/DL (7-18); C REACTIVE PROTEIN QUANTITATIV 8.73 MG/DL (0.00-0.30); CALCIUM LEVEL 7.9 MG/DL (8.8-10.2); CARBON DIOXIDE LEVEL 22 MEQ/L (21-32); CHLORIDE LEVEL 111 MEQ/L (98-107); CREATININE FOR GFR 1.54 MG/DL (0.55-1.30); GLOMERULAR FILTRATION RATE 33.8 (>32); GLUCOSE, FASTING 138 MG/DL (70-100); MAGNESIUM LEVEL 1.9 MG/DL (1.8-2.4); POTASSIUM SERUM 3.7 MEQ/L (3.5-5.1); SODIUM LEVEL 142 MEQ/L (136-145); TOTAL PROTEIN 6.1 GM/DL (6.4-8.2)
[2018-03-24] MEDS: METOCLOPRAMIDE 5 MG TAB PO (07:30)
[2018-03-24] MEDS: FUROSEMIDE 10MG PER 1/2 TABLET PO (10:34)
[2018-03-24] MEDS: ASPIRIN 81 MG ENTERIC TAB PO (10:34)
[2018-03-24] MEDS: METOPROLOL TART 25 MG TABLET PO (10:35)
[2018-03-24] MEDS: PANTOPRAZOLE 40MG TAB (PROTONIX) PO (10:35)
[2018-03-24] MEDS: AUGMENTIN 500 MG TAB PO (10:35)
[2018-03-24] MEDS: ALLOPURINOL 100 MG TAB PO (10:35)
[2018-03-24] MEDS: FERROUS GLUCONATE 324 MG TAB PO (10:35)
[2018-03-24 11:54] LABS: BEDSIDE GLUCOSE 163 MG/DL (83-110)
== END 2018-03-24 13:13 | disposition left against medical advice (07) | DRG 872 ==
LOC: M PCU 03-19 12:12 → M ED 16:55 → M ED INP 19:48 → M PCU 22:16
DX: A41.9 Sepsis, unspecified organism (principal); N17.9 Acute kidney failure, unspecified; N18.4 Chronic kidney disease, stage 4 (severe); N39.0 Urinary tract infection, site not specified; D64.9 Anemia, unspecified; K21.9 Gastro-esophageal reflux disease without esophagitis; E11.22 Type 2 diabetes mellitus with diabetic chronic kidney disease; I48.91 Unspecified atrial fibrillation; B96.20 Unspecified Escherichia coli [E. coli] as the cause of diseases classified elsewhere; E78.5 Hyperlipidemia, unspecified; I12.9 Hypertensive chronic kidney disease with stage 1 through stage 4 chronic kidney disease, or unspecified chronic kidney disease; Z86.718 Personal history of other venous thrombosis and embolism; Z90.49 Acquired absence of other specified parts of digestive tract; Z79.82 Long term (current) use of aspirin; Z79.4 Long term (current) use of insulin; Z79.01 Long term (current) use of anticoagulants; Z91.040 Latex allergy status; Z88.5 Allergy status to narcotic agent; Z88.8 Allergy status to other drugs, medicaments and biological substances; Z93.2 Ileostomy status

== ENCOUNTER 2018-03-28 16:02 | Inpatient (IN) | payer MEDICARE ==
[2018-03-28] MEDS: NS 1,000 ML IV ×2 (17:51→20:49)
[2018-03-28] MEDS: ACETAMINOPHEN TAB 650MG DOSE (2X325MG) PO (18:00)
[2018-03-28 18:05] LABS: VENOUS BASE EXCESS -5.4 (-2.0-2.0); VENOUS O2 SATURATION 59.4 % (60.0-80.0); VENOUS PARTIAL PRESSURE CO2 38.5 mmHg (38.0-50.0); VENOUS PARTIAL PRESSURE O2 30.9 mmHg (30.0-50.0); VENOUS PH 7.333 UNITS (7.330-7.430); VENOUS STANDARD HCO3 19.4 MEQ/L; VENOUS TOTAL CO2 21.2 MEQ/L (24.0-28.0)
[2018-03-28 18:13] LABS: BASO % 0.1 % (0.0-1.0); EOS # 0.1 10^3/uL (0.0-0.50); EOS % 0.4 % (0.0-3.0); HEMOGLOBIN 8.2 g/dl (12.0-15.5); LYMPH # 0.7 10^3/uL (1.5-4.5); LYMPH % 3.4 % (24.0-44.0); MEAN CORPUSCULAR HEMOGLOBIN 26.6 pg (27.0-33.0); MEAN CORPUSCULAR HGB CONC 31.5 g/dl (32.0-36.5); MEAN CORPUSCULAR VOLUME 84.4 fl (80.0-96.0); MONO # 0.6 10^3/uL (0.0-0.8); MONO % 2.8 % (0.0-5.0); NEUTROPHILS # 19.9 10^3/uL (1.8-7.7); NEUTROPHILS % 92.3 % (36.0-66.0); PLATELET COUNT, AUTOMATED 576 10^3/uL (150-450); RED BLOOD COUNT 3.08 10^6/uL (4.00-5.40); RED CELL DISTRIBUTION WIDTH 18.6 % (11.5-14.5); WHITE BLOOD COUNT 21.6 10^3/uL (4.0-10.0)
[2018-03-28 18:18] LABS: LACTIC ACID SEPSIS PROTOCOL 1.2 MMOL/L (0.4-2.0)
[2018-03-28 18:25] LABS: ALBUMIN 2.4 GM/DL (3.2-5.2); ALKALINE PHOSPHATASE 124 U/L (45-117); ALT/SGPT 17 U/L (12-78); ANION GAP 8 MEQ/L (8-16); AST/SGOT 11 U/L (7-37); BILIRUBIN,DIRECT 0.1 MG/DL (0.0-0.2); BILIRUBIN,TOTAL 0.3 MG/DL (0.2-1.0); BLOOD UREA NITROGEN 26 MG/DL (7-18); C REACTIVE PROTEIN QUANTITATIV 9.15 MG/DL (0.00-0.30); CALCIUM LEVEL 8.6 MG/DL (8.8-10.2); CARBON DIOXIDE LEVEL 22 MEQ/L (21-32); CHLORIDE LEVEL 107 MEQ/L (98-107); GLOMERULAR FILTRATION RATE 28.2 (>32); GLUCOSE, FASTING 102 MG/DL (70-100); POTASSIUM SERUM 4.3 MEQ/L (3.5-5.1); SODIUM LEVEL 137 MEQ/L (136-145); TOTAL PROTEIN 6.4 GM/DL (6.4-8.2)
[2018-03-28 18:26] LABS: PROTHROMBIN TIME 29.3 SECONDS (12.1-14.4)
[2018-03-28 20:02] LABS: BACTERIA, URINE AUTO NEGATIVE (NEGATIVE); RBC, URINE AUTO 1 /HPF (0-3); SQUAMOUS EPITHELIAL CELL UR AU 6 /HPF (0-6); WBC, URINE AUTO 2 /HPF (0-3)
[2018-03-28] MEDS: NS 500 ML IV ×2 (20:15→23:56)
[2018-03-28 20:19] LABS: APPEARANCE, URINE HAZY (CLEAR); BILIRUBIN, URINE AUTO NEGATIVE (NEGATIVE); BLOOD, URINE BLOOD NEGATIVE (NEGATIVE); COLOR, URINE YELLOW (YELLOW); GLUCOSE, URINE (UA) AUTO NEGATIVE (NEGATIVE); KETONE, URINE AUTO NEGATIVE (NEGATIVE); LEUKOCYTE ESTERASE, URINE AUTO NEGATIVE (NEGATIVE); NITRITE, URINE AUTO NEGATIVE (NEGATIVE); PROTEIN, URINE AUTO NEGATIVE (NEGATIVE); SPECIFIC GRAVITY URINE AUTO 1.009 (1.002-1.035); UROBILINOGEN, URINE AUTO 0.2 mg/dL (0.0-2.0)
[2018-03-28] MEDS: PIPERACILLIN/TAZOBACTAM SOD 3.375 GM in D5W MINI-BAG PLUS 50 ML IV (20:49)
[2018-03-28] MEDS ORDERED: GLUCOSE 4 GM CHEW TABLET PO (21:45)
[2018-03-28] MEDS ORDERED: DEXTROSE 50% 50 ML SYRINGE IV (21:45)
[2018-03-28] MEDS ORDERED: GLUCAGON FOR INJ 1 MG VIAL (J1610) SC (21:45)
[2018-03-28 23:45] LABS: BEDSIDE GLUCOSE 71 MG/DL (83-110)
[2018-03-28] MEDS: METOCLOPRAMIDE 5 MG TAB PO (23:56)
[2018-03-28] MEDS: metroNIDAZOLE 500 MG in APPROPRIATE DILUENT 1 EA IV (23:56)
[2018-03-28] MEDS: BISOPROLOL FUMARATE 10 MG TAB PO (23:56)
[2018-03-29] MEDS ORDERED: IPRATROPIUM 0.5MG/ALBUTEROL 2.5MG INH SOL UD 3ML (DUONEB)(J7620) NEB (01:00)
[2018-03-29] MEDS: cefTRIAXone SOD 1 GM in D5W MINI-BAG PLUS 50 ML IV ×2 (01:28→23:15)
[2018-03-29] MEDS: ACETAMINOPHEN TAB 650MG DOSE (2X325MG) PO (06:06)
[2018-03-29] MEDS: metroNIDAZOLE 500 MG in APPROPRIATE DILUENT 1 EA IV ×3 (06:50→21:59)
[2018-03-29 07:35] LABS: HEMATOCRIT 22.5 % (36.0-47.0); HEMOGLOBIN 7.1 g/dl (12.0-15.5); MEAN CORPUSCULAR HEMOGLOBIN 26.2 pg (27.0-33.0); MEAN CORPUSCULAR HGB CONC 31.6 g/dl (32.0-36.5); PLATELET COUNT, AUTOMATED 502 10^3/uL (150-450); RED BLOOD COUNT 2.71 10^6/uL (4.00-5.40); RED CELL DISTRIBUTION WIDTH 18.5 % (11.5-14.5); WHITE BLOOD COUNT 18.6 10^3/uL (4.0-10.0)
[2018-03-29 07:48] LABS: INR 1.69; PROTHROMBIN TIME 20.2 SECONDS (12.1-14.4)
[2018-03-29 08:00] LABS: ANION GAP 9 MEQ/L (8-16); BLOOD UREA NITROGEN 24 MG/DL (7-18); CALCIUM LEVEL 8.2 MG/DL (8.8-10.2); CARBON DIOXIDE LEVEL 21 MEQ/L (21-32); CHLORIDE LEVEL 108 MEQ/L (98-107); CREATININE FOR GFR 1.62 MG/DL (0.55-1.30); GLOMERULAR FILTRATION RATE 31.8 (>32); GLUCOSE, FASTING 87 MG/DL (70-100); SODIUM LEVEL 138 MEQ/L (136-145)
[2018-03-29] MEDS: HumaLOG INSULIN (NovoLOG) PER UNIT SC ×4 (08:04→21:00)
[2018-03-29] MEDS: VITAMIN D 1,000 INTERNATIONAL UNITS TABLET PO (09:24)
[2018-03-29] MEDS: FUROSEMIDE 10MG PER 1/2 TABLET PO (09:25)
[2018-03-29] MEDS: amLODIPine 5 MG TAB PO (09:25)
[2018-03-29] MEDS: PANTOPRAZOLE 40MG TAB (PROTONIX) PO (09:25)
[2018-03-29] MEDS: MULTIVITAMINS/MINERALS THERAP 1 TAB PO (09:25)
[2018-03-29] MEDS: ALLOPURINOL 100 MG TAB PO ×2 (09:25→21:51)
[2018-03-29] MEDS: LEVEMIR (INSULIN DETEMIR) 1 UNITS/0.01ML SC (10:35)
[2018-03-29 12:02] LABS: BEDSIDE GLUCOSE 123 MG/DL (83-110)
[2018-03-29 12:58] LABS: HEMATOCRIT 22.3 % (36.0-47.0); HEMOGLOBIN 7.2 g/dl (12.0-15.5)
[2018-03-29 17:10] LABS: BEDSIDE GLUCOSE 92 MG/DL (83-110)
[2018-03-29] MEDS: RIVAROXABAN 15 MG TAB (XARELTO) PO (17:29)
[2018-03-29] MEDS: ONDANSETRON 4MG/2ML VIAL (J2405) IV (17:29)
[2018-03-29 19:43] LABS: IMMEDIATE SPIN CROSSMATCH 1 1
[2018-03-29] MEDS: METOCLOPRAMIDE 5 MG TAB PO (20:08)
[2018-03-29 21:28] LABS: BEDSIDE GLUCOSE 130 MG/DL (83-110)
[2018-03-29] MEDS: BISOPROLOL FUMARATE 10 MG TAB PO (21:51)
[2018-03-29] MEDS: PRAVASTATIN 20 MG TAB PO (21:51)
[2018-03-30] MEDS: metroNIDAZOLE 500 MG in APPROPRIATE DILUENT 1 EA IV ×3 (05:47→21:51)
[2018-03-30] MEDS: HumaLOG INSULIN (NovoLOG) PER UNIT SC ×4 (07:30→21:00)
[2018-03-30 07:37] LABS: HEMATOCRIT 26.5 % (36.0-47.0); HEMOGLOBIN 8.5 g/dl (12.0-15.5); MEAN CORPUSCULAR HEMOGLOBIN 26.8 pg (27.0-33.0); MEAN CORPUSCULAR HGB CONC 32.1 g/dl (32.0-36.5); MEAN CORPUSCULAR VOLUME 83.6 fl (80.0-96.0); PLATELET COUNT, AUTOMATED 533 10^3/uL (150-450); RED BLOOD COUNT 3.17 10^6/uL (4.00-5.40); RED CELL DISTRIBUTION WIDTH 18.7 % (11.5-14.5); WHITE BLOOD COUNT 12.8 10^3/uL (4.0-10.0)
[2018-03-30 07:46] LABS: ANION GAP 11 MEQ/L (8-16); BLOOD UREA NITROGEN 25 MG/DL (7-18); CALCIUM LEVEL 7.9 MG/DL (8.8-10.2); CARBON DIOXIDE LEVEL 21 MEQ/L (21-32); CHLORIDE LEVEL 109 MEQ/L (98-107); CREATININE FOR GFR 1.55 MG/DL (0.55-1.30); GLOMERULAR FILTRATION RATE 33.5 (>32); GLUCOSE, FASTING 86 MG/DL (70-100); POTASSIUM SERUM 3.6 MEQ/L (3.5-5.1); SODIUM LEVEL 141 MEQ/L (136-145)
[2018-03-30] MEDS: PANTOPRAZOLE 40MG TAB (PROTONIX) PO (08:29)
[2018-03-30] MEDS: VITAMIN D 1,000 INTERNATIONAL UNITS TABLET PO (08:29)
[2018-03-30] MEDS: MULTIVITAMINS/MINERALS THERAP 1 TAB PO (08:29)
[2018-03-30] MEDS: amLODIPine 5 MG TAB PO (08:30)
[2018-03-30] MEDS: ALLOPURINOL 100 MG TAB PO ×2 (08:30→21:50)
[2018-03-30] MEDS: LEVEMIR (INSULIN DETEMIR) 1 UNITS/0.01ML SC (08:45)
[2018-03-30] MEDS: ACETAMINOPHEN TAB 650MG DOSE (2X325MG) PO ×2 (10:37→17:05)
[2018-03-30] MEDS: FUROSEMIDE 10MG PER 1/2 TABLET PO (10:37)
[2018-03-30] MEDS: CAPSAICIN 0.025% CR 60 GM TOP (10:38)
[2018-03-30 11:38] LABS: BEDSIDE GLUCOSE 97 MG/DL (83-110)
[2018-03-30 17:03] LABS: BEDSIDE GLUCOSE 119 MG/DL (83-110)
[2018-03-30] MEDS: RIVAROXABAN 15 MG TAB (XARELTO) PO (18:21)
[2018-03-30 21:40] LABS: BEDSIDE GLUCOSE 150 MG/DL (83-110)
[2018-03-30] MEDS: PRAVASTATIN 20 MG TAB PO (21:49)
[2018-03-30] MEDS: METOCLOPRAMIDE 5 MG TAB PO (21:50)
[2018-03-30] MEDS: BISOPROLOL FUMARATE 10 MG TAB PO (21:50)
[2018-03-31] MEDS: metroNIDAZOLE 500 MG in APPROPRIATE DILUENT 1 EA IV (05:22)
[2018-03-31 06:47] LABS: HEMATOCRIT 29.4 % (36.0-47.0); HEMOGLOBIN 9.6 g/dl (12.0-15.5); MEAN CORPUSCULAR HEMOGLOBIN 27.3 pg (27.0-33.0); MEAN CORPUSCULAR HGB CONC 32.7 g/dl (32.0-36.5); MEAN CORPUSCULAR VOLUME 83.5 fl (80.0-96.0); PLATELET COUNT, AUTOMATED 631 10^3/uL (150-450); RED BLOOD COUNT 3.52 10^6/uL (4.00-5.40); RED CELL DISTRIBUTION WIDTH 18.8 % (11.5-14.5); WHITE BLOOD COUNT 11.6 10^3/uL (4.0-10.0)
[2018-03-31 07:06] LABS: ANION GAP 11 MEQ/L (8-16); BLOOD UREA NITROGEN 26 MG/DL (7-18); CALCIUM LEVEL 8.4 MG/DL (8.8-10.2); CARBON DIOXIDE LEVEL 21 MEQ/L (21-32); CHLORIDE LEVEL 108 MEQ/L (98-107); CREATININE FOR GFR 1.51 MG/DL (0.55-1.30); GLOMERULAR FILTRATION RATE 34.5 (>32); GLUCOSE, FASTING 101 MG/DL (70-100); POTASSIUM SERUM 3.7 MEQ/L (3.5-5.1); SODIUM LEVEL 140 MEQ/L (136-145)
[2018-03-31] MEDS: HumaLOG INSULIN (NovoLOG) PER UNIT SC ×3 (07:30→09:11)
[2018-03-31] MEDS: LEVEMIR (INSULIN DETEMIR) 1 UNITS/0.01ML SC (09:09)
[2018-03-31] MEDS: VITAMIN D 1,000 INTERNATIONAL UNITS TABLET PO (09:09)
[2018-03-31] MEDS: PANTOPRAZOLE 40MG TAB (PROTONIX) PO (09:09)
[2018-03-31] MEDS: MULTIVITAMINS/MINERALS THERAP 1 TAB PO (09:10)
[2018-03-31] MEDS: amLODIPine 5 MG TAB PO (09:10)
[2018-03-31] MEDS: FUROSEMIDE 10MG PER 1/2 TABLET PO (09:10)
[2018-03-31] MEDS: ALLOPURINOL 100 MG TAB PO (09:10)
== END 2018-03-31 11:48 | disposition home or self-care (01) | DRG 392 ==
LOC: M ED 16:02 → M ED INP 21:24 → M MS5PR 22:45
PROC: 30233N1 Transfusion of Nonautologous Red Blood Cells into Peripheral Vein, Percutaneous Approach (ICD-10-PCS; principal; 2018-03-29)
DX: A08.4 Viral intestinal infection, unspecified (principal); I12.9 Hypertensive chronic kidney disease with stage 1 through stage 4 chronic kidney disease, or unspecified chronic kidney disease; I48.91 Unspecified atrial fibrillation; E78.5 Hyperlipidemia, unspecified; E11.22 Type 2 diabetes mellitus with diabetic chronic kidney disease; M10.9 Gout, unspecified; D64.9 Anemia, unspecified; N18.9 Chronic kidney disease, unspecified; Z90.49 Acquired absence of other specified parts of digestive tract; Z93.2 Ileostomy status; Z86.718 Personal history of other venous thrombosis and embolism; Z79.01 Long term (current) use of anticoagulants; Z79.82 Long term (current) use of aspirin; Z79.899 Other long term (current) drug therapy; Z79.4 Long term (current) use of insulin

== ENCOUNTER → 2018-04-09 | Outpatient (REF) | payer MEDICARE ==
[2018-04-09 19:07] LABS: IRON (FE) 74 UG/DL (50-170); PERCENT SATURATION 23.9 % (13.2-45.0); TOTAL IRON BINDING CAPACITY 310 UG/DL (250-450)
== END ==
LOC: M LAB REF 17:23
DX: D64.9 Anemia, unspecified (principal)
CPT/HCPCS: 83550